=== PATIENT | male | born 1960 | race Caucasian/White ===

== ENCOUNTER → 2017-09-09 08:38 | Outpatient (CLI) | payer BC, SELFPAY ==
--- NOTE | 2017-09-09 09:02 | RAD_ITS ---
STUDY: X-RAY CHEST REASON FOR EXAM: Male, 57 years old. Long-term drug therapy. No chest complaints. TECHNIQUE: PA and lateral views of the chest. COMPARISON: None. FINDINGS: The lungs are clear and expanded. Scattered calcified granulomas. There is no demonstrated pleural abnormality. Normal size heart. Normal mediastinum and smith. Normal visualized pulmonary arteries. Normal visualized aortic arch and descending thoracic aorta. There are diffuse degenerative changes of the visualized thoracic spine. Normal visualized ribs, clavicles, and shoulders. There is no demonstrated abnormality of the visualized soft tissue structures of the upper abdomen. RAD/Chest PA and Lateral IMPRESSION: No acute abnormality is seen. Electronically Signed: Alejo Landeros MD at 10:45 EST Tel [phone], Service support ,
[2017-09-09 10:26] LABS: Color, Urine Yellow (Yellow); Glucose, Dipstick Normal (Normal); Ketone-Dipstick Negative (Negative); Leukocyte Esterase-Dipstick Negative /ul (Negative); Nitrite-Dipstick Negative (Negative); Occult Blood-Urine 25 /ul (Negative); Protein-Dipstick Negative (Negative); Specific Gravity, Urine 1.015 (1.002-1.030); Urine Bilirubin Dipstick Negative (Negative); Urine Clarity Sl. Cloudy (Clear); Urine Urobilinogen Normal (Normal)
[2017-09-09 11:07] LABS: ALB/GLOB Ratio 1.1 RATIO (0.9-2.4); AST(SGOT) 24 U/L (15-37); Alanine Aminotransfer ALT/SGPT 62 U/L (16-61); Albumin, Serum 3.9 g/dL (3.2-5.0); Alkaline Phosphatase 76 U/L (45-117); Anion Gap 9 (5-15); BUN 18 mg/dL (7-18); BUN/Creat Ratio 22.3 RATIO (10-20); CRP < 2.90 mg/L (0.0-3.0); Calcium,Total 8.9 mg/dL (8.5-10.1); Chloride 103 mmol/L (98-107); Creatinine, Serum 0.81 mg/dL (0.70-1.30); EST Glomerular Filtration Rate 105 mL/min (>60); Est Glom Filt Rate - Afr Amer 127 mL/min (>60); Globulin 3.4 g/dL (2.2-4.2); Glucose 83 mg/dL (74-106); Potassium 3.2 mmol/L (3.5-5.1); Protein, Total 7.3 g/dL (6.4-8.2); Sodium Level 137 mmol/L (136-145)
[2017-09-09 11:09] LABS: Absolute Lymphocyte Count 2.58 X10^3/ul (0.83-4.51); Absolute Neutrophil Count 9.4 X10^3/uL (2.0-7.7); Basophil# 0.04 X10^3/uL; Basophil% 0.3 % (0-1); Eosinophil# 0.05 X10^3/uL; Eosinophils% 0.4 % (0-5); Hematocrit 40.8 % (40-54); Hemoglobin 13.9 g/dl (13.0-16.5); Lymphocyte # 2.58 X10^3/ul (4.0); Lymphocyte % 19.4 % (19-41); Mean Corp Hgb Conc 34.1 g/gl (32-36); Mean Corpuscular Hgb 32.9 pg (27.0-32.0); Mean Corpuscular Volume 96.7 fL (80-94); Mean Platelet Vol. 9.5 fl (6.2-12.0); Monocyte# 0.93 X10^3/uL; Neutrophil # 9.44 X10^3/uL (2.7-7.7); Neutrophil % 70.7 % (47-70); Platelet Count 333 K/mm3 (150-450); RBC Distribution Width SD 54.4 fl (35.1-43.9); Red Blood Count 4.22 M/mm3 (4.6-6.2); White Blood Count 13.3 K/mm3 (4.4-11.0)
[2017-09-09 11:10] LABS: POSITIVE COUNT YES; POSITIVE DIFFERENTIAL NO; POSITIVE MORPHOLOGY YES
[2017-09-09 11:12] LABS: Erythrocyte Sedimentation Rate 10 mm/hr (0-20)
[2017-09-10 10:06] LABS: Pathologist Review Reviewed
[2017-09-12 03:07] LABS: HEPATITIS B SURFACE AG Negative (Negative); QNTFERON TB Ag Minus Nil Value < 0 IU/mL (.); QNTFERON TB Ag Value 0.02 IU/mL (.); QNTFERON TB Mitogen Value > 10.00 IU/mL (.); QNTFERON TB Nil Value 0.03 IU/mL (.)
[2017-09-12 09:53] LABS: Hep B Surface Antibodies Non Reactive (.); Hep C Antibodies <0.1 s/co ratio (0.0-0.9); Hepatitis B Core Ab Total Negative (Negative); QNTIFERON TB Gold Negative (Negative)
== END ==
PROVIDERS: Family Provider Family Medicine; PCP Family Medicine; Visit Provider Internal Medicine Rheumatology
DX: M31.30 Wegener's granulomatosis without renal involvement (principal); H20.021 Recurrent acute iridocyclitis, right eye; H15.011 Anterior scleritis, right eye; M21.40 Flat foot [pes planus] (acquired), unspecified foot; Z79.899 Other long term (current) drug therapy
CPT/HCPCS: 36415; 71046; 80053; 81002; 85025; 85652; 86140; 86480; 86704; 86706; 86803; 87340

== ENCOUNTER → 2017-09-26 08:24 | Outpatient (CLI) | payer BC, SELFPAY ==
--- NOTE | 2017-09-26 08:30 | HPBD_ITS ---
STUDY: DUAL ENERGY X-RAY ABSORPTIOMETRY / DXA REASON FOR EXAM: Male, 57 years old. History of prednisone use. Loss of height. TECHNIQUE: Bone Mineral Density (BMD) measurements of lumbar spine and bilateral hips were obtained. COMPARISON: None. FINDINGS: Lumbar Spine (L1-L4): g/cm2 (1.233) / T-score (0.1) / Z-score (0.4) Findings are suggestive of normal bone density with a low fracture risk. Left Femur Total: g/cm2 (0.920) / T-score (-1.3) / Z-score (-0.8) Left Femoral Neck: g/cm2 (0.860) / T-score (-1.6) / Z-score (-0.8) Right Femur Total: g/cm2 (0.923) / T-score (-1.2) / Z-score (-0.8) Right Femoral Neck: g/cm2 (0.854) / T-score (-1.7) / Z-score (-0.8) HPBD/Dexa Bone Density Study (HP) IMPRESSION: The patient is considered osteopenic at the level of the femoral neck as outlined below according to World Rory Organization (WHO) criteria with a moderate fracture risk. Reference Information: The T-score is the number of standard deviations above or below the standard which is normal for young adults at their peak bone mineral density. The World Health Organization (WHO) interprets the T-scores as follows: Above -1 Normal bone density Between -1 and -2.5 Osteopenia Equal to / or below -2.5 Osteoporosis As a practical clinical guideline, osteopenia may be graded as follows: Mild -1 through -1.5 Moderate -1.6 through -2.0 Severe -2.1 through -2.4 The Z-score is the number of standard deviations above or below age-matched controls. A Z-score of less than -1.5 would be considered abnormal. References: 1. NIH Osteoporosis and Related Bone Diseases http://www.osteo.org 2. International Society for Clinical Densitometry http://www.iscd.org 3. National Osteoporosis Foundation http://www.nof.org Electronically Signed: Alejo Landeros MD at 8:28 EST Tel [phone], Service support ,
== END ==
PROVIDERS: Family Provider Family Medicine; PCP Family Medicine; Visit Provider Internal Medicine Rheumatology
DX: M31.30 Wegener's granulomatosis without renal involvement (principal); H20.021 Recurrent acute iridocyclitis, right eye; H15.011 Anterior scleritis, right eye; M21.40 Flat foot [pes planus] (acquired), unspecified foot; Z79.899 Other long term (current) drug therapy
CPT/HCPCS: 77080

== ENCOUNTER → 2017-11-06 07:53 | Outpatient (CLI) | payer BC, SELFPAY ==
[2017-11-06 10:22] LABS: Absolute Lymphocyte Count 1.71 X10^3/ul (0.83-4.51); Absolute Neutrophil Count 6.5 X10^3/uL (2.0-7.7); Basophil# 0.01 X10^3/uL; Basophil% 0.1 % (0-1); Eosinophil# 0.05 X10^3/uL; Eosinophils% 0.5 % (0-5); Hemoglobin 13.6 g/dl (13.0-16.5); Lymphocyte # 1.71 X10^3/ul (4.0); Lymphocyte % 18.5 % (19-41); Mean Corp Hgb Conc 32.4 g/gl (32-36); Mean Corpuscular Hgb 32.8 pg (27.0-32.0); Mean Corpuscular Volume 101.2 fL (80-94); Mean Platelet Vol. 9.1 fl (6.2-12.0); Monocyte# 0.83 X10^3/uL; Neutrophil # 6.52 X10^3/uL (2.7-7.7); Neutrophil % 70.5 % (47-70); Platelet Count 265 K/mm3 (150-450); RBC Distribution Width CV 15.2 % (11.6-14.6); RBC Distribution Width SD 55.3 fl (35.1-43.9); Red Blood Count 4.15 M/mm3 (4.6-6.2); White Blood Count 9.3 K/mm3 (4.4-11.0)
[2017-11-06 10:24] LABS: POSITIVE COUNT NO; POSITIVE DIFFERENTIAL NO; POSITIVE MORPHOLOGY NO
[2017-11-06 10:34] LABS: Erythrocyte Sedimentation Rate 3 mm/hr (0-20)
[2017-11-06 10:44] LABS: ALB/GLOB Ratio 1.2 RATIO (0.9-2.4); AST(SGOT) 25 U/L (15-37); Alanine Aminotransfer ALT/SGPT 48 U/L (16-61); Albumin, Serum 3.7 g/dL (3.2-5.0); Alkaline Phosphatase 73 U/L (45-117); Anion Gap 9 (5-15); BUN 16 mg/dL (7-18); BUN/Creat Ratio 21.7 RATIO (10-20); CRP < 2.90 mg/L (0.0-3.0); Calcium,Total 8.7 mg/dL (8.5-10.1); Chloride 103 mmol/L (98-107); Creatinine, Serum 0.74 mg/dL (0.70-1.30); EST Glomerular Filtration Rate 116 mL/min (>60); Est Glom Filt Rate - Afr Amer 141 mL/min (>60); Globulin 3.1 g/dL (2.2-4.2); Glucose 85 mg/dL (74-106); Potassium 3.8 mmol/L (3.5-5.1); Protein, Total 6.8 g/dL (6.4-8.2); Sodium Level 139 mmol/L (136-145)
== END ==
PROVIDERS: Family Provider Family Medicine; PCP Family Medicine; Visit Provider Internal Medicine Rheumatology
DX: M31.30 Wegener's granulomatosis without renal involvement (principal); H20.021 Recurrent acute iridocyclitis, right eye; H15.011 Anterior scleritis, right eye; M21.40 Flat foot [pes planus] (acquired), unspecified foot; Z79.899 Other long term (current) drug therapy
CPT/HCPCS: 36415; 80053; 85025; 85652; 86140

== ENCOUNTER → 2017-11-25 07:38 | Outpatient (CLI) | payer BC, SELFPAY ==
[2017-11-25] VITALS (9 sets, daily range): BP systolic 142–190; BP diastolic 95–112; PULSE 81–756; RESP 14–18; TEMP 36.6–37; O2SAT 98–100; BMI 32.0
[2017-11-25] MEDS: MethylPREDNISolone 125 MG/2 ML Vial 100 MG IV (08:06)
== END ==
PROVIDERS: Family Provider Family Medicine; PCP Family Medicine; Visit Provider Internal Medicine Rheumatology
DX: M31.30 Wegener's granulomatosis without renal involvement (principal); H20.021 Recurrent acute iridocyclitis, right eye
CPT/HCPCS: 96374; J7040; J9310; A4216

== ENCOUNTER → 2017-12-09 07:57 | Outpatient (CLI) | payer BC, SELFPAY ==
[2017-12-09] MEDS: MethylPREDNISolone 125 MG/2 ML Vial 100 MG IV (08:12)
[2017-12-09 08:26] VITALS: BP 164/109; PULSE 92; RESP 18; TEMP 36.9; O2SAT 100; BMI 31.8
[2017-12-09 09:30] VITALS: BP 164/100; PULSE 82; RESP 16; TEMP 36.9; O2SAT 97
[2017-12-09 10:04] VITALS: BP 150/99; PULSE 84; RESP 16; TEMP 36.9; O2SAT 99
[2017-12-09 10:38] VITALS: BP 144/85; PULSE 83; RESP 16; TEMP 36.6
[2017-12-09 11:09] VITALS: BP 161/95; PULSE 84; RESP 16; TEMP 36.6; O2SAT 98
[2017-12-09 12:09] VITALS: BP 149/101; PULSE 79; RESP 16; TEMP 36.8; O2SAT 98
== END ==
PROVIDERS: Family Provider Family Medicine; PCP Family Medicine; Visit Provider Internal Medicine Rheumatology
DX: Z53.9 Procedure and treatment not carried out, unspecified reason (principal)
CPT/HCPCS: J7040; J7050; J9310

== ENCOUNTER → 2018-01-06 07:46 | Outpatient (CLI) | payer BC, SELFPAY ==
--- NOTE | 2018-01-06 07:46 | DT_ITS ---
This patient was seen during an EMR downtime December 30, 2017 - January 06, 2018. This patient may have a combination of paper and electronic documentation or all paper documentation. All documentation is viewable within the e-chart portion of [facility] for each patient visit.
[2018-01-06 10:41] LABS: Absolute Neutrophil Count 6.3 X10^3/uL (2.0-7.7); Basophil# 0.03 X10^3/uL; Basophil% 0.3 % (0-1); Eosinophil# 0.09 X10^3/uL; Hematocrit 41.3 % (40-54); Hemoglobin 13.4 g/dl (13.0-16.5); Lymphocyte % 20.5 % (19-41); Mean Corp Hgb Conc 32.4 g/gl (32-36); Mean Corpuscular Hgb 32.1 pg (27.0-32.0); Mean Corpuscular Volume 98.8 fL (80-94); Mean Platelet Vol. 9.3 fl (6.2-12.0); Monocyte% 8.6 % (0-10); Platelet Count 263 K/mm3 (150-450); RBC Distribution Width CV 15.8 % (11.6-14.6); RBC Distribution Width SD 56.6 fl (35.1-43.9); Red Blood Count 4.18 M/mm3 (4.6-6.2); White Blood Count 9.3 K/mm3 (4.4-11.0)
[2018-01-06 10:42] LABS: Erythrocyte Sedimentation Rate 4 mm/hr (0-20); POSITIVE COUNT NO; POSITIVE DIFFERENTIAL NO; POSITIVE MORPHOLOGY NO
[2018-01-06 10:54] LABS: ALB/GLOB Ratio 1.2 RATIO (0.9-2.4); AST(SGOT) 21 U/L (15-37); Alanine Aminotransfer ALT/SGPT 52 U/L (16-61); Albumin, Serum 3.7 g/dL (3.2-5.0); Alkaline Phosphatase 56 U/L (45-117); Anion Gap 10 (5-15); BUN 18 mg/dL (7-18); BUN/Creat Ratio 24.9 RATIO (10-20); CRP < 2.90 mg/L (0.0-3.0); Calcium,Total 8.7 mg/dL (8.5-10.1); Chloride 103 mmol/L (98-107); Creatinine, Serum 0.72 mg/dL (0.70-1.30); EST Glomerular Filtration Rate 119 mL/min (>60); Est Glom Filt Rate - Afr Amer 144 mL/min (>60); Globulin 3.1 g/dL (2.2-4.2); Glucose 72 mg/dL (74-106); Potassium 3.8 mmol/L (3.5-5.1); Protein, Total 6.8 g/dL (6.4-8.2); Sodium Level 139 mmol/L (136-145)
== END ==
PROVIDERS: Family Provider Family Medicine; PCP Family Medicine; Visit Provider Internal Medicine Rheumatology
DX: M31.30 Wegener's granulomatosis without renal involvement (principal); H20.021 Recurrent acute iridocyclitis, right eye; H15.011 Anterior scleritis, right eye; Z79.899 Other long term (current) drug therapy; M21.40 Flat foot [pes planus] (acquired), unspecified foot
CPT/HCPCS: 36415; 80053; 85025; 85652; 86140

== ENCOUNTER → 2018-03-14 07:39 | Outpatient (CLI) | payer BC, SELFPAY ==
[2018-03-14 10:41] LABS: Erythrocyte Sedimentation Rate 8 mm/hr (0-20)
[2018-03-14 10:47] LABS: Absolute Lymphocyte Count 1.17 X10^3/ul (0.83-4.51); Absolute Neutrophil Count 3.9 X10^3/uL (2.0-7.7); Basophil# 0.03 X10^3/uL; Basophil% 0.5 % (0-1); Eosinophil# 0.07 X10^3/uL; Eosinophils% 1.1 % (0-5); Hematocrit 39.6 % (40-54); Hemoglobin 12.9 g/dl (13.0-16.5); Lymphocyte # 1.17 X10^3/ul (4.0); Lymphocyte % 19.1 % (19-41); Mean Corp Hgb Conc 32.6 g/gl (32-36); Mean Corpuscular Hgb 33.5 pg (27.0-32.0); Mean Corpuscular Volume 102.9 fL (80-94); Mean Platelet Vol. 9.3 fl (6.2-12.0); Monocyte# 0.97 X10^3/uL; Monocyte% 15.8 % (0-10); Neutrophil # 3.87 X10^3/uL (2.7-7.7); Neutrophil % 63.3 % (47-70); Platelet Count 310 K/mm3 (150-450); RBC Distribution Width CV 15.7 % (11.6-14.6); RBC Distribution Width SD 58.6 fl (35.1-43.9); Red Blood Count 3.85 M/mm3 (4.6-6.2); White Blood Count 6.1 K/mm3 (4.4-11.0)
[2018-03-14 10:49] LABS: ALB/GLOB Ratio 1.1 RATIO (0.9-2.4); AST(SGOT) 26 U/L (15-37); Alanine Aminotransfer ALT/SGPT 43 U/L (16-61); Albumin, Serum 3.5 g/dL (3.2-5.0); Alkaline Phosphatase 71 U/L (45-117); Anion Gap 8 (5-15); BUN 11 mg/dL (7-18); BUN/Creat Ratio 13.6 RATIO (10-20); Calcium,Total 8.5 mg/dL (8.5-10.1); Chloride 104 mmol/L (98-107); Creatinine, Serum 0.81 mg/dL (0.70-1.30); EST Glomerular Filtration Rate 105 mL/min (>60); Est Glom Filt Rate - Afr Amer 127 mL/min (>60); Globulin 3.3 g/dL (2.2-4.2); Glucose 91 mg/dL (74-106); POSITIVE COUNT NO; POSITIVE DIFFERENTIAL NO; POSITIVE MORPHOLOGY NO; Potassium 3.7 mmol/L (3.5-5.1); Protein, Total 6.8 g/dL (6.4-8.2); Sodium Level 139 mmol/L (136-145)
== END ==
PROVIDERS: Family Provider Family Medicine; PCP Family Medicine; Visit Provider Internal Medicine Rheumatology
DX: M31.30 Wegener's granulomatosis without renal involvement (principal); H20.021 Recurrent acute iridocyclitis, right eye; H15.011 Anterior scleritis, right eye; M21.40 Flat foot [pes planus] (acquired), unspecified foot; Z79.899 Other long term (current) drug therapy
CPT/HCPCS: 36415; 80053; 85025; 85652; 86140

== ENCOUNTER → 2018-06-06 07:52 | Outpatient (CLI) | payer BC, SELFPAY ==
[2018-06-06 10:21] LABS: Erythrocyte Sedimentation Rate 6 mm/hr (0-20)
[2018-06-06 10:26] LABS: Absolute Lymphocyte Count 1.22 X10^3/ul (0.83-4.51); Absolute Neutrophil Count 5.4 X10^3/uL (2.0-7.7); Basophil# 0.03 X10^3/uL; Basophil% 0.4 % (0-1); Eosinophil# 0.12 X10^3/uL; Eosinophils% 1.6 % (0-5); Hematocrit 39.3 % (40-54); Hemoglobin 13.3 g/dl (13.0-16.5); Lymphocyte # 1.22 X10^3/ul (4.0); Lymphocyte % 16.2 % (19-41); Mean Corp Hgb Conc 33.8 g/gl (32-36); Mean Corpuscular Hgb 32.4 pg (27.0-32.0); Mean Corpuscular Volume 95.9 fL (80-94); Mean Platelet Vol. 9.7 fl (6.2-12.0); Monocyte# 0.73 X10^3/uL; Monocyte% 9.7 % (0-10); Neutrophil # 5.42 X10^3/uL (2.7-7.7); Platelet Count 337 K/mm3 (150-450); RBC Distribution Width CV 15.5 % (11.6-14.6); RBC Distribution Width SD 54.3 fl (35.1-43.9); White Blood Count 7.5 K/mm3 (4.4-11.0)
[2018-06-06 10:31] LABS: POSITIVE COUNT NO; POSITIVE DIFFERENTIAL NO; POSITIVE MORPHOLOGY NO
[2018-06-06 10:33] LABS: ALB/GLOB Ratio 1.1 RATIO (0.9-2.4); AST(SGOT) 15 U/L (15-37); Alanine Aminotransfer ALT/SGPT 34 U/L (16-61); Albumin, Serum 3.6 g/dL (3.2-5.0); Alkaline Phosphatase 94 U/L (45-117); Anion Gap 7 (5-15); BUN 16 mg/dL (7-18); BUN/Creat Ratio 18.3 RATIO (10-20); CRP < 2.90 mg/L (0.0-3.0); Chloride 106 mmol/L (98-107); Creatinine, Serum 0.87 mg/dL (0.70-1.30); EST Glomerular Filtration Rate 96 mL/min (>60); Est Glom Filt Rate - Afr Amer 116 mL/min (>60); Globulin 3.3 g/dL (2.2-4.2); Glucose 72 mg/dL (74-106); Potassium 4.3 mmol/L (3.5-5.1); Protein, Total 6.9 g/dL (6.4-8.2); Sodium Level 140 mmol/L (136-145)
== END ==
PROVIDERS: Family Provider Family Medicine; PCP Family Medicine; Referring Provider Internal Medicine Rheumatology; Visit Provider Internal Medicine Rheumatology
DX: M31.30 Wegener's granulomatosis without renal involvement (principal); H20.021 Recurrent acute iridocyclitis, right eye; H15.011 Anterior scleritis, right eye; Z79.899 Other long term (current) drug therapy; M21.40 Flat foot [pes planus] (acquired), unspecified foot
CPT/HCPCS: 80053; 85025; 85652; 86140

== ENCOUNTER → 2018-06-30 08:52 | Outpatient (CLI) | payer BC, SELFPAY ==
[2018-06-30] MEDS: MethylPREDNISolone 125 MG/2 ML Vial 100 MG IV (09:09)
[2018-06-30 09:13] VITALS: BP 176/96; PULSE 82; RESP 18; TEMP 36.4; O2SAT 99; BMI 34.6
[2018-06-30 10:37] VITALS: BP 160/99; PULSE 81; RESP 18
[2018-06-30 11:18] VITALS: BP 164/83; PULSE 73; RESP 16; TEMP 36.5
[2018-06-30 11:44] VITALS: BP 159/87; RESP 18
[2018-06-30 12:46] VITALS: BP 147/92; PULSE 87; RESP 18; TEMP 36.7; O2SAT 99
--- OUTSIDE RECORDS SUMMARY | 2018-08-23 10:58 | XMS RPT_ITS ---
:1960 Author Organization [place] Support Name Relationship Address Phone FEDERICO HITCHCOCK Unavailable [address] + [place] [phone] MATFO Unavailable [address] + [place] [phone] FEDERICO HITCHCOCK Unavailable [address] + [place] [phone] MATFO Unavailable [address] + [place] [phone] FEDERICO HITCHCOCK Unavailable [address] + [place] [phone] MATFO Unavailable [address] + [place] [phone] FEDERICO HITCHCOCK Unavailable [address] + [place] [phone] MATFO Unavailable [address] + [place] [phone] FEDERICO HITCHCOCK Unavailable [address] + [place] [phone] MATFO Unavailable [address] + [place] [phone] LEVAR HITCHCOCKNY Unavailable [address] + [place] [phone] MATFO Unavailable [address] + [place] [phone] FEDERICO HITCHCOCK Unavailable [address] + [place] [phone] MATFO Unavailable [address] + [place] [phone] FEDERICO HITCHCOCK Unavailable [address] + [place] [address] POLLOTTA WIGGINS Unavailable [address] + [place] [address] FEDERICO HITCHCOCK Unavailable [address] + [place] [address] POLLOTTA WIGGINS Unavailable [address] + [place] [address] LEVAR HITCHCOCKNY Unavailable [address] + [place] [address] POLLOTTA WIGGINS Unavailable [address] + [place] [address] CORETTA FEDERICO Unavailable [address] + [place] [address] POLLOTTA WIGGINS Unavailable [address] + [place] [address] Care Team Providers Name Role Phone DUANE RENEE Attending Unavailable TAMMIE ANGUIANO, DUANE Referring Unavailable TAMMIE ANGUIANO, DUANE Attending Unavailable Vellanki, Meryl Attending Unavailable Vellanki, Meryl Referring Unavailable Jolliff, Teri Primary Care Unavailable Vellanki, Meryl Attending Unavailable Vellanki, Meryl Referring Unavailable Jolliff, Teri Primary Care Unavailable Vellanki, Meryl Attending Unavailable Vellanki, Meryl Referring Unavailable Jolliff, Teri Primary Care Unavailable Vellanki, Meryl Attending Unavailable Vellanki, Meryl Referring Unavailable Jolliff, Teri Primary Care Unavailable Vellanki, Meryl Attending Unavailable Vellanki, Meryl Referring Unavailable Jolliff, Teri Primary Care Unavailable Vellanki, Meryl Attending Unavailable Vellanki, Meryl Referring Unavailable Jolliff, Teri Primary Care Unavailable Vellanki, Meryl Attending Unavailable Vellanki, Meryl Referring Unavailable Jolliff, Teri Primary Care Unavailable Vellanki, Meryl Attending Unavailable Vellanki, Meryl Referring Unavailable Jolliff, Teri Primary Care Unavailable Vellanki, Meryl Attending Unavailable Vellanki, Meryl Referring Unavailable Jolliff, Teri Primary Care Unavailable Vellanki, Meryl Attending Unavailable Vellanki, Meryl Referring Unavailable Jolliff, Teri Primary Care Unavailable Vellanki, Meryl Attending Unavailable Vellanki, Meryl Referring Unavailable Jolliff, Teri Primary Care Unavailable PROBLEMS PROBLEMS DATE TYPE CONDITION / CODE ATTENDING STATUS SOURCE 06/06/2018 Unknown 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 Hospital involvement / Repository M31.30(ICD-10) 06/06/2018 Unknown 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, Community right eye / Hospital H20.021(ICD-10) Repository 06/06/2018 Unknown 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, right eye Community / H15.011(ICD-10) Hospital Repository 06/06/2018 Unknown Z79.899 - Other long Meryl Gross Active [facility] term (current) drug Community therapy / Hospital Z79.899(ICD-10) Repository 06/06/2018 Unknown M21.40 - Flat foot Meryl Gross Active [facility] [pes planus] Community (acquired), Hospital unspecified foot / Repository M21.40(ICD-10) 08/30/2017 Active Ai's NA Active [facility] granulomatosis [facility] without renal [place] involvement / Repository M31.30(ICD-10) 08/30/2017 Active Other chronic NA Active [facility] sinusitis / Clinic Main J32.8(ICD-10) [facility] Repository 08/30/2017 Active skilled nursing (current) NA Active [facility] use of systemic Clinic Main steroids / [place] Z79.52(ICD-10) Repository 08/30/2017 Active Unspecified NA Active [facility] scleritis, right eye Clinic Main / H15.001(ICD-10) [facility] Repository 08/30/2017 Active Other residential NA Active [facility] (current) drug Clinic Main therapy / [place] Z79.899(ICD-10) Repository PROCEDURES PROCEDURES No Procedure Records FoundRESULTS RESULTS ERYTHROCYTE SED RATE Collected: 06/06/2018 Status: F Source: [employer] 8:00 AM [facility] REPOSITORY TYPE CODE TESTS RESULT OUT OF RANGE REFERENCE UNITS LAB L102.0000 0-20 mm/hr Normal SED RATE 6 Performed By: #### L101.9900, L100.0100 #### [facility] [address] [place], [address] CBC W/DIFF, AUTOMATED Collected: 06/06/2018 Status: F Source: [employer] 8:00 AM [facility] REPOSITORY TYPE CODE TESTS RESULT OUT OF RANGE REFERENCE UNITS LAB L100.1000 4.4-11.0 K/mm3 Normal WBC 7.5 LAB L100.1200 4.6-6.2 M/mm3 Low RBC 4.10 LAB L100.1300 13.0-16.5 g/dl Normal HGB 13.3 LAB L100.1400 40-54 % Low HCT 39.3 LAB L100.1500 80-94 fL High MCV 95.9 LAB L100.1600 27.0-32.0 pg High MCH 32.4 LAB L100.1700 32-36 g/gl Normal MCHC 33.8 LAB L100.1810 11.6-14.6 % High RDW CV 15.5 LAB L100.1820 35.1-43.9 fl High RDW SD 54.3 LAB L100.1900 150-450 K/mm3 Normal PLT 337 LAB L100.2000 6.2-12.0 fl Normal MPV 9.7 LAB L100.2100 47-70 % High NEUT% 72.0 LAB L100.2200 19-41 % Low LY% 16.2 LAB L100.2300 0-10 % Normal MONO% 9.7 LAB L100.2400 0-5 % Normal EO% 1.6 LAB L100.2500 0-1 % Normal BASO% 0.4 LAB L100.2550 0.0-0.9 % Normal IM GRAN % 0.100 Result Comment: IG% - Immature Granulocytes (promyelocytes, myelocytes and metamyelocytes) > 1% indicates that a LEFT SHIFT is Present. LAB L100.2620 2.0-7.7 X10 3/uL Normal Absolute Neut 5.4 LAB L100.2720 0.83-4.51 X10 3/ul Normal Absolute Lymph 1.22 Performed By: #### L101.9900, L100.0100 #### [facility] [address] [place], [place], [address] COMPREHENSIVE METABOLIC Collected: 06/06/2018 Status: F [facility] REPOSITORY TYPE CODE TESTS RESULT OUT OF RANGE REFERENCE UNITS LAB L501.0100 74-106 mg/dL Low GLU 72 Result Comment: Please note revised GLUCOSE reference range effective 2017. LAB L501.1000 7-18 mg/dL Normal BUN 16 LAB L501.1100 0.70-1.30 mg/dL Normal CREAT,SERUM 0.87 Result Comment: The validity of the calculated GFR AND GFRAA in patients over 70 years has not been determined. Clinical correlation is essential. LAB L501.1110 >60 mL/min Normal EST GFR 96 Result Comment: Non- GFR Calc LAB L501.1115 >60 mL/min Normal EST GFR - AA 116 Result Comment: GFR Calc LAB L501.1300 10-20 RATIO Normal BUN/CRE 18.3 LAB L501.1500 6.4-8.2 g/dL T Normal PROT 6.9 LAB L501.1800 3.2-5.0 g/dL Normal ALB 3.6 LAB L501.1950 2.2-4.2 g/dL Normal GLOB 3.3 LAB L501.2000 0.9-2.4 RATIO Normal A/G 1.1 LAB L501.2200 8.5-10.1 mg/dL CA Normal 9.0 LAB L501.4100 15-37 U/L Normal AST 15 LAB L501.4305 45-117 U/L Normal ALK P 94 LAB L501.4405 16-61 U/L Normal ALT 34 LAB L501.4600 0.20-1.00 mg/dL T Normal BILI 0.40 LAB L501.5300 136-145 mmol/L NA Normal 140 LAB L501.5600 3.5-5.1 mmol/L K Normal 4.3 LAB L501.5900 98-107 mmol/L CL Normal 106 LAB L501.6100 21.0-32.0 mmol/L Normal CO2 27.0 LAB L501.6200 5-15 Normal GAP 7 Performed By: #### L500.4050, L501.6710 #### [facility] [address] [place], [place], [address] CRP Collected: 06/06/2018 Status: F Source: [employer] 8:00 AM [facility] REPOSITORY TYPE CODE TESTS RESULT OUT OF RANGE REFERENCE UNITS LAB L501.6710 0.0-3.0 mg/L Normal < 2.90 C-REACTIVE PROT Result Comment: C-Reactive Protein (CRP) provides useful information for the diagnosis, therapy and monitoring of inflammatory processes and associated diseases. For the evaluation of Relative Risk for Cardiovascular Disease, a High Sensitivity CRP (HSCRP) should be ordered. Performed By: #### L500.4050, L501.6710 #### [facility] [address] [place], [address] ERYTHROCYTE SED RATE Collected: 03/14/2018 Status: F Source: [employer] 7:43 AM [facility] REPOSITORY TYPE CODE TESTS RESULT OUT OF RANGE REFERENCE UNITS LAB L102.0000 0-20 mm/hr Normal SED RATE 8 Performed By: #### L101.9900, L100.0100 #### [facility] [address] [place], [address] CBC W/DIFF, AUTOMATED Collected: 03/14/2018 Status: F Source: [employer] 7:43 AM [facility] REPOSITORY TYPE CODE TESTS RESULT OUT OF RANGE REFERENCE UNITS LAB L100.1000 4.4-11.0 K/mm3 Normal WBC 6.1 LAB L100.1200 4.6-6.2 M/mm3 Low RBC 3.85 LAB L100.1300 13.0-16.5 g/dl Low HGB 12.9 LAB L100.1400 40-54 % Low HCT 39.6 LAB L100.1500 80-94 fL High MCV 102.9 LAB L100.1600 27.0-32.0 pg High MCH 33.5 LAB L100.1700 32-36 g/gl Normal MCHC 32.6 LAB L100.1810 11.6-14.6 % High RDW CV 15.7 LAB L100.1820 35.1-43.9 fl High RDW SD 58.6 LAB L100.1900 150-450 K/mm3 Normal PLT 310 LAB L100.2000 6.2-12.0 fl Normal MPV 9.3 LAB L100.2100 47-70 % Normal NEUT% 63.3 LAB L100.2200 19-41 % Normal LY% 19.1 LAB L100.2300 0-10 % High MONO% 15.8 LAB L100.2400 0-5 % Normal EO% 1.1 LAB L100.2500 0-1 % Normal BASO% 0.5 LAB L100.2550 0.0-0.9 % Normal IM GRAN % 0.200 Result Comment: IG% - Immature Granulocytes (promyelocytes, myelocytes and metamyelocytes) > 1% indicates that a LEFT SHIFT is Present. LAB L100.2620 2.0-7.7 X10 3/uL Normal Absolute Neut 3.9 LAB L100.2720 0.83-4.51 X10 3/ul Normal Absolute Lymph 1.17 Performed By: #### L101.9900, L100.0100 #### [facility] [address] [place], [address] COMPREHENSIVE METABOLIC Collected: 03/14/2018 Status: F Source: [facility] 7:43 AM [facility] REPOSITORY TYPE CODE TESTS RESULT OUT OF RANGE REFERENCE UNITS LAB L501.0100 74-106 mg/dL Normal GLU 91 Result Comment: Please note revised GLUCOSE reference range effective 2017. LAB L501.1000 7-18 mg/dL Normal BUN 11 LAB L501.1100 0.70-1.30 mg/dL Normal CREAT,SERUM 0.81 Result Comment: The validity of the calculated GFR AND GFRAA in patients over 70 years has not been determined. Clinical correlation is essential. LAB L501.1110 >60 mL/min Normal EST GFR 105 Result Comment: Non- GFR Calc LAB L501.1115 >60 mL/min Normal EST GFR - AA 127 Result Comment: GFR Calc LAB L501.1300 10-20 RATIO Normal BUN/CRE 13.6 LAB L501.1500 6.4-8.2 g/dL T Normal PROT 6.8 LAB L501.1800 3.2-5.0 g/dL Normal ALB 3.5 LAB L501.1950 2.2-4.2 g/dL Normal GLOB 3.3 LAB L501.2000 0.9-2.4 RATIO Normal A/G 1.1 LAB L501.2200 8.5-10.1 mg/dL CA Normal 8.5 LAB L501.4100 15-37 U/L Normal AST 26 LAB L501.4305 45-117 U/L Normal ALK P 71 LAB L501.4405 16-61 U/L Normal ALT 43 LAB L501.4600 0.20-1.00 mg/dL T Normal BILI 0.40 LAB L501.5300 136-145 mmol/L NA Normal 139 LAB L501.5600 3.5-5.1 mmol/L K Normal 3.7 LAB L501.5900 98-107 mmol/L CL Normal 104 LAB L501.6100 21.0-32.0 mmol/L Normal CO2 27.0 LAB L501.6200 5-15 Normal GAP 8 Performed By: #### L500.4050, L501.6710 #### [facility] [address] [place], [address] CRP Collected: 03/14/2018 Status: F Source: [employer] 7:43 AM [facility] REPOSITORY TYPE CODE TESTS RESULT OUT OF RANGE REFERENCE UNITS LAB L501.6710 0.0-3.0 mg/L Normal 3.00 C-REACTIVE PROT Result Comment: C-Reactive Protein (CRP) provides useful information for the diagnosis, therapy and monitoring of inflammatory processes and associated diseases. For the evaluation of Relative Risk for Cardiovascular Disease, a High Sensitivity CRP (HSCRP) should be ordered. Performed By: #### L500.4050, L501.6710 #### [facility] [address] [place], [place], [address] PROGRESS Observed: 02/27/2018 Status: COMPLETED Source: [place] 8:17 AM [facility] REPOSITORY HNO ID: [id number] Author: Duane Anguiano Service: (none) Author Type: Physician Type: Progress Notes Filed: 02/27/2018 4:44 PM Note Text: Jaelyn Hitchcock is a 57 year old male here for follow-up of GPA. The patient was referred by Dr. Sommers. 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 Diagnosed with GPA (involving eye, sinus). Started on rituximab + MTX 25 mg q week+ prednisone 20 mg q day. Previously treated with Humira. Scleritis - 02/27/2018 INTERVAL HX: At today's visit Jaelyn Hitchcock states that he has been overall doing well. Started having tingling in his forehead about a week and a half ago. He then developed a rash over his forehead which he describes as small bumps which he initially thought were pimples. He was seen by his PCP on Saturday 02/24 and was told he had shingles. He was seen by the dentist/owner on Saturday as well and was cleared. He has a follow up with dentist/owner on next Saturday. He is on valtrex 1 gram TID for 10 days. He feels that his rash is getting better, it is less sore and less red. He reports that if it wasn't for the shingles he would be doing well. He feels he has allergies. He reports sneezing frequently. He reports rare streaks of blood when he blows his nose, but denies crusting. He reports post-nasal drainage. He feels his vision is doing well. When he saw the dentist/owner he reports being told that his GPA was quiescent. 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 He reports that he does wear a mask most of the time. He does notice a difference in his symptoms when he is not at work, less congestion and sneezing. He flushes his sinuses 2-3x per week which seems to help him. He reports some weight gain with the prednisone. He denies shortness of fevers, chills, night sweats, breath, chest pain, hemoptysis, cough w/ sputum production, denies stridor/wheezing, no rashes other than the shingles. He is on RTX and received his last dose in 12/13. He is scheduled for his next one sometime in 06/15. He gets his infusions through [facility]. He remains on the 20 mg q day of prednisone. He is also on MTX 25 mg q week. He reports compliance with his folic acid. He reports that he frequently doesn't sleep well. Does not believe he snores at night. He denies a history of apneic events. He denies prior sleep study. BP at home 138/89. SMALL/MEDIUM VESSEL VASCULITIS ROS: GENERAL: negative for, malaise, fatigue, night sweats FEVER: none WEIGHT CHANGE: has gained 15 lbs pounds since starting steroids ENT: negative for, nasal crusting, epistaxis, decreased hearing, sore throat, difficulty swallowing, voice changes. Positive for scant blood streaked nasal drainage EYES: negative for pain, redness, visual blurring, visual loss RESPIRATORY: negative for, cough, sputum production, hemoptysis, wheezing, shortness of breath, pleuritic chest pain CARDIOVASCULAR: negative for, chest pain, palpitations, digital ischemia, Raynaud's GASTROINTESTINAL: negative for, discomfort, BRBPR, black stools, vomiting, diarrhea URINARY: negative for, dysuria, hematuria MUSCULOSKELETAL: negative for joint pain, back pain, myalgias NEUROLOGIC: negative for, numbness, weakness, headache, dizziness SKIN: rash (shingles) OTHER ROS: all others negative REVIEW OF FAMILY AND/OR SOCIAL HISTORY: 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 folic acid 1 mg tablet Take 1 tablet by mouth once daily. predniSONE (DELTASONE) 5 mg tablet 15 mg daily for 1 weeks then cut down by 5 mg every 1 week until off alendronate (FOSAMAX) 70 mg tablet Take 1 tablet by mouth once each week. In the morning with a full glass of water, on an empty stomach. Do not take anything else by mouth or lie down for the next 30 minutes. sulfamethoxazole-trimethoprim (BACTRIM DS,SEPTRA DS) 800-160 mg per tablet TAKE 1 TABLET BY MOUTH ON SATURDAY, SATURDAY AND SATURDAY methotrexate 2.5 mg tablet Take 10 tablets by mouth every . moxifloxacin (VIGAMOX) 0.5 % ophthalmic solution Use 1 Drop in the right eye every 4 hours. brimonidine (ALPHAGAN P) 0.15 % ophthalmic solution Use 1 Drop in the right eye once daily. No current facility-administered medications for this visit. PHYSICAL EXAMINATION Blood pressure 156/93, pulse 87, temperature (!) 35.6 ?C (96.1 ?F), height 168.9 cm (5' 6.5), weight 95.3 kg (210 lb 3.2 oz). GENERAL APPEARANCE: well SKIN: Scabbed papules and some blisters w/ erythematous base over right sided V1 distribution c/w healing zoster rash EYES: PERRLA, no conjunctival erythema, small area of bluish discoloration of the sclera c/w prior history of scleritis w/ ulceration EARS: External ears normal, TM's scarred around the periphery bilaterally (pt reports frequent ear infections as a child). Small amount of cerumen present bilaterally. NOSE/SINUSES: nasal mucosal inflammation, scant greenish/nguyễn mucous OROPHARYNX: no oral lesions present, no oral ulcers. LUNGS: clear HEART: RRR, no gallops, rubs or murmurs ABDOMEN: soft, non-tender, normal BS, no organomegaly or masses MUSCULOSKELETAL: normal NEURO: normal Lab results: WBC Date Value Ref Range Status 08/30/2017 10.22 3.70 - 11.00 k/uL Final Hemoglobin Date Value Ref Range Status 08/30/2017 14.4 13.0 - 17.0 g/dL Final Hematocrit Date Value Ref Range Status 08/30/2017 42.6 39.0 - 51.0 % Final Platelet Count Date Value Ref Range Status 08/30/2017 314 150 - 400 k/uL Final Creatinine Date Value Ref Range Status 08/30/2017 0.77 0.73 - 1.22 mg/dL Final Glucose Date Value Ref Range Status 08/30/2017 96 74 - 99 mg/dL Final Comment: The [place] [employer] (ADA) provides guidance for cutoff values for fasting glucose and random glucose. The ADA defines fasting as no caloric intake for at least 8 hours. Fasting plasma glucose results between 100 to 125 mg/dL indicate increased risk for diabetes (prediabetes). Fasting plasma glucose results greater than or equal to 126 mg/dL meet the criteria for diagnosis of diabetes. In the absence of unequivocal hyperglycemia, results should be confirmed by repeat testing. In a patient with classic symptoms of hyperglycemia or hyperglycemic crisis, random plasma glucose results greater than or equal to 200 mg/dL meet the criteria for diagnosis of diabetes. Reference: Standards of Medical Care in Diabetes 2016, [place] [employer] Association. Diabetes Care. 2016.39(Suppl 1). AST Date Value Ref Range Status 08/30/2017 35 14 - 40 U/L Final ALT Date Value Ref Range Status 08/30/2017 33 10 - 54 U/L Final WSR Date Value Ref Range Status 08/30/2017 8 0 - 15 mm/hr Final CRP Date Value Ref Range Status 08/30/2017 0.3 <0.9 mg/dL Final Alkaline Phosphatase Date Value Ref Range Status 08/30/2017 84 36 - 108 U/L Final Urine: Specific [place], Ur Date Value Ref Range Status 08/30/2017 1.013 1.005 - 1.030 Final Glucose, Urine Date Value Ref Range Status 08/30/2017 Negative Negative mg/dL Final Bilirubin, Urine Date Value Ref Range Status 08/30/2017 Negative Negative Final Ketones, Urine Date Value Ref Range Status 08/30/2017 Trace (A) Negative Final Hemoglobin/Blood,Ur Date Value Ref Range Status 08/30/2017 Negative Negative Final Protein, Urine Date Value Ref Range Status 08/30/2017 Negative Negative mg/dL Final ASSESSMENT: 1. 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 He does seem to have mild sinus involvement, which is manageable per pt Pt reports being told his scleritis was improved when he saw [facility] Saturday[facility]18 Feels the rituximab has been helping and denies side effects Had double dose of rituximab in 12/13, due for repeat infusion in 06/15 Continued on MTX 25 mg q week and prednisone 20 mg q day, interested in tapering prednisone Does report some fatigue with his MTX which improves 2-3 days after the dose Available laboratories were reviewed with the patient. Herpes Zoster: Currently has Zoster of the right V1 dermatome, no eye involvement Currently on a 10 day course of valacyclovir 1g TID x10 days Reports improvement in his rash since starting the medication Has a follow up appointment with ophtho on Saturday03/03/18 Pt denies other recent infections PLAN: Continue MTX 25 mg q week + folic acid Continue Rituximab, okay to give single maintenance dose of only one gram in 06/15, as long as disease remains quiescent Taper prednisone. Pt will go down to 15 mg x1 week, then will decrease his dose by 5 mg per week. 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 Follow-up: September or October 2018 I spent 40 minutes in the visit, with more than 50% of the total face to face time of the visit in the counseling/coordination of care. Lencho Mckeon, Rheumatology Staff I have reviewed the history and physical examination obtained and documented by the fellow and I personally participated in the bui components. I have discussed the case and management of the patient's care with the fellow. The above plan reflects my recommendations Duane Morrissey MD CNOV Observed: 02/27/2018 Status: COMPLETED Source: [place] 8:10 AM [facility] REPOSITORY Office Visit (RHEUMN) JAELYN HITCHCOCK ([id number]) 1960 M Date Time Provider Department 02/27/18 8:10 AM DUANE RENEE During your visit today, we recorded the following information about you: Temperature Pulse Blood pressure Weight 96.1 degrees 87/minute 156/93 95.3 kg Height 1.689 m Duane Morrissey MD 02/27/2018 4:44 PM Signed Jaelyn Hitchcock is a 57 year old male here for follow-up of GPA. The patient was referred by Dr. Sommers. 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 Diagnosed with GPA (involving eye, sinus). Started on rituximab + MTX 25 mg q week+ prednisone 20 mg q day. Previously treated with Humira. Scleritis - 02/27/2018 INTERVAL HX: At today's visit Jaelyn Hitchcock states that he has been overall doing well. Started having tingling in his forehead about a week and a half ago. He then developed a rash over his forehead which he describes as small bumps which he initially thought were pimples. He was seen by his PCP on Saturday 02/24 and was told he had shingles. He was seen by the dentist/owner on Saturday as well and was cleared. He has a follow up with dentist/owner on next Saturday. He is on valtrex 1 gram TID for 10 days. He feels that his rash is getting better, it is less sore and less red. He reports that if it wasn't for the shingles he would be doing well. He feels he has allergies. He reports sneezing frequently. He reports rare streaks of blood when he blows his nose, but denies crusting. He reports post-nasal drainage. He feels his vision is doing well. When he saw the dentist/owner he reports being told that his GPA was quiescent. 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 He reports that he does wear a mask most of the time. He does notice a difference in his symptoms when he is not at work, less congestion and sneezing. He flushes his sinuses 2-3x per week which seems to help him. He reports some weight gain with the prednisone. He denies shortness of fevers, chills, night sweats, breath, chest pain, hemoptysis, cough w/ sputum production, denies stridor/wheezing, no rashes other than the shingles. He is on RTX and received his last dose in 12/13. He is scheduled for his next one sometime in 06/15. He gets his infusions through [facility]. He remains on the 20 mg q day of prednisone. He is also on MTX 25 mg q week. He reports compliance with his folic acid. He reports that he frequently doesn't sleep well. Does not believe he snores at night. He denies a history of apneic events. He denies prior sleep study. BP at home 138/89. SMALL/MEDIUM VESSEL VASCULITIS ROS: GENERAL: negative for, malaise, fatigue, night sweats FEVER: none WEIGHT CHANGE: has gained 15 lbs pounds since starting steroids ENT: negative for, nasal crusting, epistaxis, decreased hearing, sore throat, difficulty swallowing, voice changes. Positive for scant blood streaked nasal drainage EYES: negative for pain, redness, visual blurring, visual loss RESPIRATORY: negative for, cough, sputum production, hemoptysis, wheezing, shortness of breath, pleuritic chest pain CARDIOVASCULAR: negative for, chest pain, palpitations, digital ischemia, Raynaud's GASTROINTESTINAL: negative for, discomfort, BRBPR, black stools, vomiting, diarrhea URINARY: negative for, dysuria, hematuria MUSCULOSKELETAL: negative for joint pain, back pain, myalgias NEUROLOGIC: negative for, numbness, weakness, headache, dizziness SKIN: rash (shingles) OTHER ROS: all others negative REVIEW OF FAMILY AND/OR SOCIAL HISTORY: 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 folic acid 1 mg tablet Take 1 tablet by mouth once daily. predniSONE (DELTASONE) 5 mg tablet 15 mg daily for 1 weeks then cut down by 5 mg every 1 week until off alendronate (FOSAMAX) 70 mg tablet Take 1 tablet by mouth once each week. In the morning with a full glass of water, on an empty stomach. Do not take anything else by mouth or lie down for the next 30 minutes. sulfamethoxazole-trimethoprim (BACTRIM DS,SEPTRA DS) 800-160 mg per tablet TAKE 1 TABLET BY MOUTH ON SATURDAY, SATURDAY AND SATURDAY methotrexate 2.5 mg tablet Take 10 tablets by mouth every . moxifloxacin (VIGAMOX) 0.5 % ophthalmic solution Use 1 Drop in the right eye every 4 hours. brimonidine (ALPHAGAN P) 0.15 % ophthalmic solution Use 1 Drop in the right eye once daily. No current facility-administered medications for this visit. PHYSICAL EXAMINATION Blood pressure 156/93, pulse 87, temperature (!) 35.6 ?C (96.1 ?F), height 168.9 cm (5' 6.5), weight 95.3 kg (210 lb 3.2 oz). GENERAL APPEARANCE: well SKIN: Scabbed papules and some blisters w/ erythematous base over right sided V1 distribution c/w healing zoster rash EYES: PERRLA, no conjunctival erythema, small area of bluish discoloration of the sclera c/w prior history of scleritis w/ ulceration EARS: External ears normal, TM's scarred around the periphery bilaterally (pt reports frequent ear infections as a child). Small amount of cerumen present bilaterally. NOSE/SINUSES: nasal mucosal inflammation, scant greenish/nguyễn mucous OROPHARYNX: no oral lesions present, no oral ulcers. LUNGS: clear HEART: RRR, no gallops, rubs or murmurs ABDOMEN: soft, non-tender, normal BS, no organomegaly or masses MUSCULOSKELETAL: normal NEURO: normal Lab results: WBC Date Value Ref Range Status 08/30/2017 10.22 3.70 - 11.00 k/uL Final Hemoglobin Date Value Ref Range Status 08/30/2017 14.4 13.0 - 17.0 g/dL Final Hematocrit Date Value Ref Range Status 08/30/2017 42.6 39.0 - 51.0 % Final Platelet Count Date Value Ref Range Status 08/30/2017 314 150 - 400 k/uL Final Creatinine Date Value Ref Range Status 08/30/2017 0.77 0.73 - 1.22 mg/dL Final Glucose Date Value Ref Range Status 08/30/2017 96 74 - 99 mg/dL Final Comment: The [place] Diabetes Association (ADA) provides guidance for cutoff values for fasting glucose and random glucose. The ADA defines fasting as no caloric intake for at least 8 hours. Fasting plasma glucose results between 100 to 125 mg/dL indicate increased risk for diabetes (prediabetes). Fasting plasma glucose results greater than or equal to 126 mg/dL meet the criteria for diagnosis of diabetes. In the absence of unequivocal hyperglycemia, results should be confirmed by repeat testing. In a patient with classic symptoms of hyperglycemia or hyperglycemic crisis, random plasma glucose results greater than or equal to 200 mg/dL meet the criteria for diagnosis of diabetes. Reference: Standards of Medical Care in Diabetes 2016, [place] [employer] Association. Diabetes Care. 2016.39(Suppl 1). AST Date Value Ref Range Status 08/30/2017 35 14 - 40 U/L Final ALT Date Value Ref Range Status 08/30/2017 33 10 - 54 U/L Final WSR Date Value Ref Range Status 08/30/2017 8 0 - 15 mm/hr Final CRP Date Value Ref Range Status 08/30/2017 0.3 <0.9 mg/dL Final Alkaline Phosphatase Date Value Ref Range Status 08/30/2017 84 36 - 108 U/L Final Urine: Specific [place], Ur Date Value Ref Range Status 08/30/2017 1.013 1.005 - 1.030 Final Glucose, Urine Date Value Ref Range Status 08/30/2017 Negative Negative mg/dL Final Bilirubin, Urine Date Value Ref Range Status 08/30/2017 Negative Negative Final Ketones, Urine Date Value Ref Range Status 08/30/2017 Trace (A) Negative Final Hemoglobin/Blood,Ur Date Value Ref Range Status 08/30/2017 Negative Negative Final Protein, Urine Date Value Ref Range Status 08/30/2017 Negative Negative mg/dL Final ASSESSMENT: 1. 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 He does seem to have mild sinus involvement, which is manageable per pt Pt reports being told his scleritis was improved when he saw [facility] on Saturday02/24/18 Feels the rituximab has been helping and denies side effects Had double dose of rituximab in 12/13, due for repeat infusion in 06/15 Continued on MTX 25 mg q week and prednisone 20 mg q day, interested in tapering prednisone Does report some fatigue with his MTX which improves 2-3 days after the dose Available laboratories were reviewed with the patient. Herpes Zoster: Currently has Zoster of the right V1 dermatome, no eye involvement Currently on a 10 day course of valacyclovir 1g TID x10 days Reports improvement in his rash since starting the medication Has a follow up appointment with [facility] on Saturday03/03/18 Pt denies other recent infections PLAN: Continue MTX 25 mg q week + folic acid Continue Rituximab, okay to give single maintenance dose of only one gram in 06/15, as long as disease remains quiescent Taper prednisone. Pt will go down to 15 mg x1 week, then will decrease his dose by 5 mg per week. 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 Follow-up: September or October 2018 I spent 40 minutes in the visit, with more than 50% of the total face to face time of the visit in the counseling/coordination of care. Lencho Mckeon, DO Rheumatology Staff I have reviewed the history and physical examination obtained and documented by the fellow and I personally participated in the bui components. I have discussed the case and management of the patient's care with the fellow. The above plan reflects my recommendations Duane Morrissey MD Referring Provider: SELF [[id number]] Allergies As of Date: 02/27/2018 Noted Allergy Reaction COMBIGAN (BRIMONIDINE-TIMOLOL) 07/16/2017 5 - Intolerance Comments: Hypersensitivity - red eye Date Reviewed: 02/27/2018 Reviewed by: Aissatou Beltran Ma - Fully Assessed Primary Visit Diagnosis:Granulomatosis with polyangiitis (HCC) [M31.30] Other Visit Diagnoses:Scleritis, unspecified laterality [H15.009] Acute trigeminal herpes zoster [B02.22] High risk medication use [Z79.899] Order(s):folic acid 1 mg tabletTake 1 tablet by mouth once daily.Disp: Rfl: predniSONE (DELTASONE) 5 mg [id number] mg daily for 1 weeks then cut down by 5 mg every 1 week until offDisp: 90 tabletRfl: 1 alendronate (FOSAMAX) 70 mg tabletTake 1 tablet by mouth once each week. In the morning with a full glass of water, on an empty stomach. Do not take anything else by mouth or lie down for the next 30 minutes.Disp: Rfl: Prescriptions as of 02/27/2018 Sig: VALACYCLOVIR 1 GRAM TABLET Take 1,000 mg by mouth three * FOLIC ACID 1 MG TABLET Take 1 tablet by mouth once d* PREDNISONE 5 MG TABLET 15 mg daily for 1 weeks then * ALENDRONATE 70 MG TABLET Take 1 tablet by mouth once e* SULFAMETHOXAZOLE 800 MG-TRIME* TAKE 1 TABLET BY MOUTH ON MON* METHOTREXATE SODIUM 2.5 MG TA* Take 10 tablets by mouth ever* MOXIFLOXACIN 0.5 % EYE DROPS Use 1 Drop in the right eye e* BRIMONIDINE 0.15 % EYE DROPS Use 1 Drop in the right eye o* Problem List As Of Date 02/27/2018 Noted Resolved Granulomatosis with polyangiitis (HCC) [M31.30] INVALID FOR* More... Scleritis [H15.009] INVALID FOR* Prescriptions ordered this encounter Disp Refills Start End FOLIC ACID 1 MG TABLET 02/27/2018 Class: OTC Route: ORAL Sig: Take 1 tablet by mouth once daily. PREDNISONE 5 MG TABLET 90 t* 1 02/27/2018 Si mg daily for 1 weeks then cut down by 5 mg every 1 week until off ALENDRONATE 70 MG TABLET 02/27/2018 Class: Med Update Route: ORAL Sig: Take 1 tablet by mouth once each week. In the morning with a full glass of water, on an empty stomach. Do not take anything else by mouth or lie down for the next 30 minutes. Medications Discontinued During This Encounter folic acid 1 mg tablet 08/30/2017 02/27/2018 Class: Med Update Route: ORAL Sig: Take 1 tablet by mouth once daily. Disc: Reason for discontinue is not on file. predniSONE (DELTASONE) 20 mg tablet 08/30/2017 02/27/2018 Class: Med Update Route: ORAL Sig: Take 2 tablets by mouth once daily. Disc: Reason for discontinue is not on file. Follow-up and Disposition History Recorded Encounter Status:Closed by DUANE RENEE MD on 02/27/18 DOWNTIME REPORT Observed: 01/16/2018 Status: F Source: RUDY 1:56 PM [facility] REPOSITORY [facility] Medical Records Department [address] [place] [address] Downtime Report MR#: [id number] Acct: [id number] Name: JAELYN HITCHCOCK Rep #: [id number] : 1960 57 From: Girma Frazier PCP: Teri Au MD Status: REG CLI This patient was seen during an EMR downtime December 30, 2017 - January 06, 2018. This patient may have a combination of paper and electronic documentation or all paper documentation. All documentation is viewable within the e-chart portion of [employer] for each patient visit. COMPREHENSIVE METABOLIC Collected: 01/06/2018 Status: F Source: [employer] PROF[employer] 7:51 AM [facility] REPOSITORY TYPE CODE TESTS RESULT OUT OF RANGE REFERENCE UNITS LAB L501.0100 74-106 mg/dL Low GLU 72 Result Comment: Please note revised GLUCOSE reference range effective 2017. LAB L501.1000 7-18 mg/dL Normal BUN 18 LAB L501.1100 0.70-1.30 mg/dL Normal CREAT,SERUM 0.72 Result Comment: The validity of the calculated GFR AND GFRAA in patients over 70 years has not been determined. Clinical correlation is essential. LAB L501.1110 >60 mL/min Normal EST GFR 119 Result Comment: Non- GFR Calc LAB L501.1115 >60 mL/min Normal EST GFR - AA 144 Result Comment: GFR Calc LAB L501.1300 10-20 RATIO High BUN/CRE 24.9 LAB L501.1500 6.4-8.2 g/dL T Normal PROT 6.8 LAB L501.1800 3.2-5.0 g/dL Normal ALB 3.7 LAB L501.1950 2.2-4.2 g/dL Normal GLOB 3.1 LAB L501.2000 0.9-2.4 RATIO Normal A/G 1.2 LAB L501.2200 8.5-10.1 mg/dL CA Normal 8.7 LAB L501.4100 15-37 U/L Normal AST 21 LAB L501.4305 45-117 U/L Normal ALK P 56 LAB L501.4405 16-61 U/L Normal ALT 52 LAB L501.4600 0.20-1.00 mg/dL T Normal BILI 0.30 LAB L501.5300 136-145 mmol/L NA Normal 139 LAB L501.5600 3.5-5.1 mmol/L K Normal 3.8 LAB L501.5900 98-107 mmol/L CL Normal 103 LAB L501.6100 21.0-32.0 mmol/L Normal CO2 26.0 LAB L501.6200 5-15 Normal GAP 10 Performed By: #### L500.4050, L501.6710 #### [facility] [address] [facility] [place], [address] CRP Collected: 01/06/2018 Status: F Source: [employer] 7:51 AM [facility] REPOSITORY TYPE CODE TESTS RESULT OUT OF RANGE REFERENCE UNITS LAB L501.6710 0.0-3.0 mg/L Normal < 2.90 C-REACTIVE PROT Result Comment: C-Reactive Protein (CRP) provides useful information for the diagnosis, therapy and monitoring of inflammatory processes and associated diseases. For the evaluation of Relative Risk for Cardiovascular Disease, a High Sensitivity CRP (HSCRP) should be ordered. Performed By: #### L500.4050, L501.6710 #### [facility] [address] [place], [place], [id number] CBC W/DIFF, AUTOMATED Collected: 01/06/2018 Status: F Source: RUDY 7:51 AM [facility] REPOSITORY TYPE CODE TESTS RESULT OUT OF RANGE REFERENCE UNITS LAB L100.1000 4.4-11.0 K/mm3 Normal WBC 9.3 LAB L100.1200 4.6-6.2 M/mm3 Low RBC 4.18 LAB L100.1300 13.0-16.5 g/dl Normal HGB 13.4 LAB L100.1400 40-54 % Normal HCT 41.3 LAB L100.1500 80-94 fL High MCV 98.8 LAB L100.1600 27.0-32.0 pg High MCH 32.1 LAB L100.1700 32-36 g/gl Normal MCHC 32.4 LAB L100.1810 11.6-14.6 % High RDW CV 15.8 LAB L100.1820 35.1-43.9 fl High RDW SD 56.6 LAB L100.1900 150-450 K/mm3 Normal PLT 263 LAB L100.2000 6.2-12.0 fl Normal MPV 9.3 LAB L100.2100 47-70 % Normal NEUT% 68.0 LAB L100.2200 19-41 % Normal LY% 20.5 LAB L100.2300 0-10 % Normal MONO% 8.6 LAB L100.2400 0-5 % Normal EO% 1.0 LAB L100.2500 0-1 % Normal BASO% 0.3 LAB L100.2550 0.0-0.9 % High IM GRAN % 1.600 Result Comment: IG% - Immature Granulocytes (promyelocytes, myelocytes and metamyelocytes) > 1% indicates that a LEFT SHIFT is Present. LAB L100.2620 2.0-7.7 X10 3/uL Normal Absolute Neut 6.3 LAB L100.2720 0.83-4.51 X10 3/ul Normal Absolute Lymph 1.90 Performed By: #### L100.0100, L101.9900 #### [facility] [address] [place], [place], [address] ERYTHROCYTE SED RATE Collected: 01/06/2018 Status: F Source: RUDY 7:51 AM [facility] REPOSITORY TYPE CODE TESTS RESULT OUT OF RANGE REFERENCE UNITS LAB L102.0000 0-20 mm/hr Normal SED RATE 4 Performed By: #### L100.0100, L101.9900 #### [facility] [place], [address] CBC W/DIFF, AUTOMATED Collected: 11/06/2017 Status: F Source: RUDY 7:57 AM [facility] REPOSITORY TYPE CODE TESTS RESULT OUT OF RANGE REFERENCE UNITS LAB L100.1000 4.4-11.0 K/mm3 Normal WBC 9.3 LAB L100.1200 4.6-6.2 M/mm3 Low RBC 4.15 LAB L100.1300 13.0-16.5 g/dl Normal HGB 13.6 LAB L100.1400 40-54 % Normal HCT 42.0 LAB L100.1500 80-94 fL High MCV 101.2 LAB L100.1600 27.0-32.0 pg High MCH 32.8 LAB L100.1700 32-36 g/gl Normal MCHC 32.4 LAB L100.1810 11.6-14.6 % High RDW CV 15.2 LAB L100.1820 35.1-43.9 fl High RDW SD 55.3 LAB L100.1900 150-450 K/mm3 Normal PLT 265 LAB L100.2000 6.2-12.0 fl Normal MPV 9.1 LAB L100.2100 47-70 % High NEUT% 70.5 LAB L100.2200 19-41 % Low LY% 18.5 LAB L100.2300 0-10 % Normal MONO% 9.0 LAB L100.2400 0-5 % Normal EO% 0.5 LAB L100.2500 0-1 % Normal BASO% 0.1 LAB L100.2550 0.0-0.9 % High IM GRAN % 1.400 Result Comment: IG% - Immature Granulocytes (promyelocytes, myelocytes and metamyelocytes) > 1% indicates that a LEFT SHIFT is Present. LAB L100.2620 2.0-7.7 X10 3/uL Normal Absolute Neut 6.5 LAB L100.2720 0.83-4.51 X10 3/ul Normal Absolute Lymph 1.71 Performed By: #### L100.0100, L101.9900 #### [facility] [address] [place], [address] ERYTHROCYTE SED RATE Collected: 11/06/2017 Status: F Source: [employer] 7:57 AM [facility] REPOSITORY TYPE CODE TESTS RESULT OUT OF RANGE REFERENCE UNITS LAB L102.0000 0-20 mm/hr Normal SED RATE 3 Performed By: #### L100.0100, L101.9900 #### [facility] [address] [place], [place], [address] COMPREHENSIVE METABOLIC Collected: 11/06/2017 Status: F Source: [facility] 7:57 AM [facility] REPOSITORY TYPE CODE TESTS RESULT OUT OF RANGE REFERENCE UNITS LAB L501.0100 74-106 mg/dL Normal GLU 85 Result Comment: Please note revised GLUCOSE reference range effective 2017. LAB L501.1000 7-18 mg/dL Normal BUN 16 LAB L501.1100 0.70-1.30 mg/dL Normal CREAT,SERUM 0.74 Result Comment: The validity of the calculated GFR AND GFRAA in patients over 70 years has not been determined. Clinical correlation is essential. LAB L501.1110 >60 mL/min Normal EST GFR 116 Result Comment: Non- GFR Calc LAB L501.1115 >60 mL/min Normal EST GFR - AA 141 Result Comment: GFR Calc LAB L501.1300 10-20 RATIO High BUN/CRE 21.7 LAB L501.1500 6.4-8.2 g/dL T Normal PROT 6.8 LAB L501.1800 3.2-5.0 g/dL Normal ALB 3.7 LAB L501.1950 2.2-4.2 g/dL Normal GLOB 3.1 LAB L501.2000 0.9-2.4 RATIO Normal A/G 1.2 LAB L501.2200 8.5-10.1 mg/dL CA Normal 8.7 LAB L501.4100 15-37 U/L Normal AST 25 LAB L501.4305 45-117 U/L Normal ALK P 73 LAB L501.4405 16-61 U/L Normal ALT 48 Result Comment: Please note revised ALT reference range effective 2017. LAB L501.4600 0.20-1.00 mg/dL Normal T BILI 0.30 LAB L501.5300 136-145 mmol/L Normal NA 139 LAB L501.5600 3.5-5.1 mmol/L Normal K 3.8 LAB L501.5900 98-107 mmol/L Normal CL 103 LAB L501.6100 21.0-32.0 mmol/L Normal CO2 27.0 LAB L501.6200 5-15 Normal GAP 9 Performed By: #### L500.4050, L501.6710 #### [facility] [address] [place], [address] CRP Collected: 11/06/2017 Status: F Source: [employer] 7:57 AM [facility] REPOSITORY TYPE CODE TESTS RESULT OUT OF RANGE REFERENCE UNITS LAB L501.6710 0.0-3.0 mg/L Normal < 2.90 C-REACTIVE PROT Result Comment: C-Reactive Protein (CRP) provides useful information for the diagnosis, therapy and monitoring of inflammatory processes and associated diseases. For the evaluation of Relative Risk for Cardiovascular Disease, a High Sensitivity CRP (HSCRP) should be ordered. Performed By: #### L500.4050, L501.6710 #### [facility] [address] [place], [address] DEXA BONE DENSITY Observed: 09/26/2017 Status: F Source: [employer] STUDY () 8:26 AM [facility] REPOSITORY [facility] Imaging Services [address] [place] [address] Dexa Bone Density Study () MR#: [id number] Acct: [id number] Name: JAELYN HITCHCOCK Rep #: [id number] : 1960 M 57 From: Alejo Landeros MD PCP: Teri Au MD Status: REG CLI Study: Dexa Bone Density Study () Date of Exam: 09/26/17 Exam# [id number] Ordering Dr: Meryl Gross MD STUDY: DUAL ENERGY X-RAY ABSORPTIOMETRY / DXA REASON FOR EXAM: Male, 57 years old. History of prednisone use. Loss of height. TECHNIQUE: Bone Mineral Density (BMD) measurements of lumbar spine and bilateral hips were obtained. COMPARISON: None. FINDINGS: Lumbar Spine (L1-L4): g/cm2 (1.233) / T-score (0.1) / Z-score (0.4) Findings are suggestive of normal bone density with a low fracture risk. Left Femur Total: g/cm2 (0.920) / T-score (-1.3) / Z- score (-0.8) Left Femoral Neck: g/cm2 (0.860) / T-score (-1.6) / Z- score (-0.8) Right Femur Total: g/cm2 (0.923) / T-score (-1.2) / Z- score (-0.8) Right Femoral Neck: g/cm2 (0.854) / T-score (-1.7) / Z-score (-0.8) HPBD/Dexa Bone Density Study (HP) IMPRESSION: The patient is considered osteopenic at the level of the femoral neck as outlined below according to World Rory Organization (WHO) criteria with a moderate fracture risk. Reference Information: The T-score is the number of standard deviations above or below the standard which is normal for young adults at their peak bone mineral density. The World Health Organization (WHO) interprets the T-scores as follows: Above -1 Normal bone density Between -1 and -2.5 Osteopenia Equal to / or below -2.5 Osteoporosis As a practical clinical guideline, osteopenia may be graded as follows: Mild -1 through -1.5 Moderate -1.6 through -2.0 Severe -2.1 through -2.4 The Z-score is the number of standard deviations above or below age-matched controls. A Z-score of less than -1.5 would be considered abnormal. References: 1. NIH Osteoporosis and Related Bone Diseases http://www.osteo.org 2. International Society for Clinical Densitometry http://www.iscd.org 3. National Osteoporosis Foundation http://www.nof.org Electronically Signed: Alejo Landeros MD at 8:28 EST Tel [phone], Service support , CC: Teri Au MD; Meryl Gross MD Motion Picture Projectionist Apprentice: Signed URINALYSIS, ROUTINE Collected: 09/09/2017 Status: F Source: [employer] ([employer]) 8:49 AM [facility] REPOSITORY Order Comment: How was Urine Obtained? CLEAN CATCH TYPE CODE TESTS RESULT OUT OF RANGE REFERENCE UNITS LAB L400.3000 Yellow COLOR Normal Yellow LAB L400.3050 Clear Normal CLARITY Sl. Cloudy LAB L400.3200 Normal mg/dl Normal GLUCOSE, UR Normal LAB L400.3300 Negative mg/dL Normal BILIRUBIN URINE Negative LAB L400.3400 Negative mg/dl Normal KETONE UR Negative LAB L400.3465 1.002-1.030 Normal SP.GR. DIPSTX 1.015 LAB L400.3550 5.0 - 8.0 pH UR Normal 6.0 LAB L400.3600 Negative mg/dl PROT Normal DIPSTX Negative LAB L400.3700 Normal mg/dl Normal UROBILI Normal LAB L400.3750 Negative Normal NITRITE UR Negative LAB L400.3780 Negative /ul High 25 OCCULT BLOOD-UR LAB L400.3800 Negative /ul LEUK Normal ESTERASE Negative Performed By: #### L400.2010 #### [facility] [address] [place], [place], [id number] COMPREHENSIVE METABOLIC Collected: 09/09/2017 Status: F Source: [facility] PROFIL 8:49 AM [facility] REPOSITORY TYPE CODE TESTS RESULT OUT OF RANGE REFERENCE UNITS LAB L501.0100 74-106 mg/dL Normal GLU 83 Result Comment: Please note revised GLUCOSE reference range effective 2017. LAB L501.1000 7-18 mg/dL Normal BUN 18 LAB L501.1100 0.70-1.30 mg/dL Normal CREAT,SERUM 0.81 Result Comment: The validity of the calculated GFR AND GFRAA in patients over 70 years has not been determined. Clinical correlation is essential. LAB L501.1110 >60 mL/min Normal EST GFR 105 Result Comment: Non- GFR Calc LAB L501.1115 >60 mL/min Normal EST GFR - AA 127 Result Comment: GFR Calc LAB L501.1300 10-20 RATIO High BUN/CRE 22.3 LAB L501.1500 6.4-8.2 g/dL T Normal PROT 7.3 LAB L501.1800 3.2-5.0 g/dL Normal ALB 3.9 LAB L501.1950 2.2-4.2 g/dL Normal GLOB 3.4 LAB L501.2000 0.9-2.4 RATIO Normal A/G 1.1 LAB L501.2200 8.5-10.1 mg/dL CA Normal 8.9 LAB L501.4100 15-37 U/L Normal AST 24 LAB L501.4305 45-117 U/L Normal ALK P 76 LAB L501.4405 16-61 U/L High ALT 62 Result Comment: Please note revised ALT reference range effective 2017. LAB L501.4600 0.20-1.00 mg/dL Normal T BILI 0.40 LAB L501.5300 136-145 mmol/L Normal NA 137 LAB L501.5600 3.5-5.1 mmol/L Low K 3.2 LAB L501.5900 98-107 mmol/L Normal CL 103 LAB L501.6100 21.0-32.0 mmol/L Normal CO2 25.0 LAB L501.6200 5-15 Normal GAP 9 Performed By: #### L500.4050, L501.6710 #### [facility] [address] [place], [place], [address] CRP Collected: 09/09/2017 Status: F Source: RUDY 8:49 AM [facility] REPOSITORY TYPE CODE TESTS RESULT OUT OF RANGE REFERENCE UNITS LAB L501.6710 0.0-3.0 mg/L Normal < 2.90 C-REACTIVE PROT Result Comment: C-Reactive Protein (CRP) provides useful information for the diagnosis, therapy and monitoring of inflammatory processes and associated diseases. For the evaluation of Relative Risk for Cardiovascular Disease, a High Sensitivity CRP (HSCRP) should be ordered. Performed By: #### L500.4050, L501.6710 #### [facility] [place], [address] CBC W/DIFF, AUTOMATED Collected: 09/09/2017 Status: C Source: [employer] 8:49 AM [facility] REPOSITORY TYPE CODE TESTS RESULT OUT OF RANGE REFERENCE UNITS LAB L100.1000 4.4-11.0 K/mm3 High WBC 13.3 LAB L100.1200 4.6-6.2 M/mm3 Low RBC 4.22 LAB L100.1300 13.0-16.5 g/dl Normal HGB 13.9 LAB L100.1400 40-54 % Normal HCT 40.8 LAB L100.1500 80-94 fL High MCV 96.7 LAB L100.1600 27.0-32.0 pg High MCH 32.9 LAB L100.1700 32-36 g/gl Normal MCHC 34.1 LAB L100.1810 11.6-14.6 % High RDW CV 16.0 LAB L100.1820 35.1-43.9 fl High RDW SD 54.4 LAB L100.1900 150-450 K/mm3 Normal PLT 333 LAB L100.2000 6.2-12.0 fl Normal MPV 9.5 LAB L100.2100 47-70 % High NEUT% 70.7 LAB L100.2200 19-41 % Normal LY% 19.4 LAB L100.2300 0-10 % Normal MONO% 7.0 LAB L100.2400 0-5 % Normal EO% 0.4 LAB L100.2500 0-1 % Normal BASO% 0.3 LAB L100.2550 0.0-0.9 % High IM GRAN % 2.200 Result Comment: IG% - Immature Granulocytes (promyelocytes, myelocytes and metamyelocytes) > 1% indicates that a LEFT SHIFT is Present. LAB L100.2620 2.0-7.7 X10 3/uL High Absolute Neut 9.4 LAB L100.2720 0.83-4.51 X10 3/ul Normal Absolute Lymph 2.58 LAB L100.9900 Normal PATH REV Reviewed Result Comment: Neutrophilic leukocytosis. Clinical correlation suggested. Chris Elkins D.O. 09/10/17 AMENDED REPORT 09/10/17 1006 PATH REV previously reported as: November Performed By: #### L100.0100, L101.9900 #### [facility] [address] [place], [place], [address] ERYTHROCYTE SED RATE Collected: 09/09/2017 Status: F Source: [place] 8:49 AM [facility] REPOSITORY TYPE CODE TESTS RESULT OUT OF RANGE REFERENCE UNITS LAB L102.0000 0-20 mm/hr Normal SED RATE 10 Performed By: #### L100.0100, L101.9900 #### [facility] [address] [place], [place], [address] HEPATITIS B SURFACE Collected: 09/09/2017 Status: F Source: [place] AG 8:49 AM [facility] REPOSITORY TYPE CODE TESTS RESULT OUT OF RANGE REFERENCE UNITS LAB L3100.0400 Negative Normal HB Negative SURF AG Performed By: #### L3100.0390, L3100.0460, L3100.0528, L3100.0625, L3400.7000 #### [facility] (refer to report for specific site) refer to report for address and phone number HEPATITIS B CORE AB Collected: 09/09/2017 Status: F Source: [place] TOTAL 8:49 AM [facility] REPOSITORY TYPE CODE TESTS RESULT OUT OF RANGE REFERENCE UNITS LAB L3100.0460 Negative Normal HEP B Negative CORE,TOT Result Comment: Performed at: [address] [id number] Duty Officer: Dontae Hess PhD, Phone: [phone] Performed By: #### L3100.0390, L3100.0460, L3100.0528, L3100.0625, L3400.7000 #### [facility] (refer to report for specific site) refer to report for address and phone number HEP B SURFACE Collected: 09/09/2017 Status: F Source: [place] ANTIBODIES 8:49 AM [facility] REPOSITORY TYPE CODE TESTS RESULT OUT OF RANGE REFERENCE UNITS LAB L3100.0528 . Normal Hep B Non Reactive Loan AB Result Comment: Non Reactive: Inconsistent with immunity, less than 10 mIU/mL Reactive: Consistent with immunity, greater than 9.9 mIU/mL Performed By: #### L3100.0390, L3100.0460, L3100.0528, L3100.0625, L3400.7000 #### [facility] (refer to report for specific site) refer to report for address and phone number HEPATITIS C ANTIBODIES Collected: 09/09/2017 Status: F Source: [place] 8:49 AM [facility] REPOSITORY TYPE CODE TESTS RESULT OUT OF RANGE REFERENCE UNITS LAB L3100.0650 0.0-0.9 s/co ratio Normal HEP C AB <0.1 Result Comment: Negative: < 0.8 Indeterminate: 0.8 - 0.9 Positive: > 0.9 The CDC recommends that a positive HCV antibody result be followed up with a HCV Nucleic Acid Amplification test (238988). Performed By: #### L3100.0390, L3100.0460, L3100.0528, L3100.0625, L3400.7000 #### [facility] (refer to report for specific site) refer to report for address and phone number QUANTIFERON TB-GOLD Collected: 09/09/2017 Status: F Source: [employer] 8:49 AM [facility] REPOSITORY TYPE CODE TESTS RESULT OUT OF RANGE REFERENCE UNITS LAB L3400.7025 Negative Normal QFT Negative TB GOLD Result Comment: The specimen received for QuantiFERON testing was incubated by the ordering institution. Specific procedures outlined in our Directory of Services and in the package insert for the QuantiFERON Gold (In Tube) test must be followed to enable for proper stimulation of cells for the production of interferon gamma. LAB L3400.7035 . Normal QFT TB Comment POS CRIT Result Comment: To be considered positive a specimen should have a TB Ag minus Nil value greater than or equal to 0.35 IU/mL and in addition the TB Ag minus Nil value must be greater than or equal to 25% of the Nil value. There may be insufficient information in these values to differentiate between some negative and some indeterminate test values. LAB L3400.7045 . IU/mL Normal QFT TB AB 0.02 VALUE LAB L3400.7055 . IU/mL Normal QFT NIL VALUE 0.03 LAB L3400.7065 . IU/mL > Normal QFT MITOGEN 10.00 ROGER LAB L3400.7075 . IU/mL < Normal QFT AG - NIL 0 LAB L3400.7085 . Normal QFT TB INTER Comment Result Comment: The QuantiFERON TB Gold (in Tube) assay is intended for use as an aid in the diagnosis of TB infection. Negative results suggest that there is no TB infection. In patients with high suspicion of exposure, a negative test should be repeated. A positive test indicates infection with Mycobacterium tuberculosis. Among individuals without tuberculosis infection, a positive test may be due to exposure to M. kansasii, M. szulgai or M. marinum. On the Internet, go to cdc.gov/tb for further details. Performed By: #### L3100.0390, L3100.0460, L3100.0528, L3100.0625, L3400.7000 #### [facility] (refer to report for specific site) refer to report for address and phone number CHEST PA AND LATERAL Observed: 09/09/2017 Status: F Source: [employer] 8:47 AM [facility] REPOSITORY [facility] Imaging Services [address] [place] [address] Chest PA and Lateral MR#: [id number] Acct: [id number] Name: JAELYN HITCHCOCK Shona Rep #: [id number] : 1960 57 From: Alejo Landeros MD PCP: Teri Au MD Status: REG CLI Study: Chest PA and Lateral Date of Exam: 09/09/17 Exam# [id number] Ordering Dr: Meryl Gross MD STUDY: X-RAY CHEST REASON FOR EXAM: Male, 57 years old. Long-term drug therapy. No chest complaints. TECHNIQUE: PA and lateral views of the chest. COMPARISON: None. FINDINGS: The lungs are clear and expanded. Scattered calcified granulomas. There is no demonstrated pleural abnormality. Normal size heart. Normal mediastinum and smith. Normal visualized pulmonary arteries. Normal visualized aortic arch and descending thoracic aorta. There are diffuse degenerative changes of the visualized thoracic spine. Normal visualized ribs, clavicles, and shoulders. There is no demonstrated abnormality of the visualized soft tissue structures of the upper abdomen. RAD/Chest PA and Lateral IMPRESSION: No acute abnormality is seen. Electronically Signed: Alejo Landeros MD at 10:45 EST Tel [phone], Service support , CC: Teri Au MD; Meryl Gross MD Motion Picture Projectionist Apprentice: Signed CBC Collected: 08/30/2017 Status: F Source: [place] 10:09 AM [facility] REPOSITORY TYPE CODE TESTS RESULT OUT OF REFERENCE UNITS RANGE LAB WBC 3.70-11.00 k/uL WBC 10.22 LAB RBC 4.20-6.00 m/uL RBC 4.46 LAB HGB 13.0-17.0 g/dL Hemoglobin 14.4 LAB HCT 39.0-51.0 % Hematocrit 42.6 LAB MCV 80.0-100.0 fL MCV 95.5 LAB MCH 26.0-34.0 pG MCH 32.3 LAB MCHC 30.5-36.0 g/dL MCHC 33.8 LAB RDWCV 11.5-15.0 % RDW-CV High 15.9 LAB PLTCT 150-400 k/uL Platelet Count 314 LAB MPV 9.0-12.7 fL MPV 9.5 LAB ABSNUC <0.01 k/uL Absolute nRBC <0.01 Performed By: #### CBC, CMP, CRP, VITD, WSR, ANCA #### [facility] [address] [place], [place] [address] COMP METABOLIC PANEL Collected: 08/30/2017 Status: F Source: [place] 10:09 AM [facility] REPOSITORY TYPE CODE TESTS RESULT OUT OF REFERENCE UNITS RANGE LAB TP 6.3-8.0 g/dL Protein, Total 6.8 LAB ALB 3.9-4.9 g/dL Albumin 4.3 LAB CA 8.5-10.2 mg/dL Calcium, Total 9.4 LAB TBIL 0.2-1.3 mg/dL Bilirubin, Total 0.8 LAB ALKP 36-108 U/L Alkaline Phosphatase 84 LAB AST 14-40 U/L AST 35 LAB GLU 74-99 mg/dL Glucose 96 Result Comment: The [place] Diabetes Association (ADA) provides guidance for cutoff values for fasting glucose and random glucose. The ADA defines fasting as no caloric intake for at least 8 hours. Fas ting plasma glucose results between 100 to 125 mg/dL indicate increased risk for diabetes (prediabetes). Fasting plasma glucose results greater than or equal to 126 mg/dL meet the criteria for diagnosis of diabetes. In the absence of unequivocal hyperglycemia, results should be confirmed by repeat testing. In a patient with classic symptoms of hyperglycemia or hyperglycemic crisis, random plasma glucose results greater than or equal to 200 mg/dL meet the criteria for diagnosis of diabetes. Reference: Standards of Medical Care in Diabetes 2016, [place] [employer] Association. Diabetes Care. 2016.39(Suppl 1). LAB BUN 9-24 mg/dL BUN 16 LAB CRET 0.73-1.22 mg/dL Creatinine 0.77 LAB NA 136-144 mmol/L Sodium 136 LAB K 3.7-5.1 mmol/L Potassium 4.1 LAB CL 97-105 mmol/L Chloride 97 LAB CO2 22-30 mmol/L CO2 24 LAB AGAP 9-18 mmol/L Anion Gap 15 LAB ALT 10-54 U/L ALT 33 LAB GFRAA eGFR- Amer. >60 LAB GFRNAA . eGFR-All Other Races >60 Result Comment: eGFR (Estimated GFR) Units of measure: mL/min/1.73 meters squared eGFR is derived from the reexpressed MDRD Study equation using the following parameters: serum creatinine, age, gender and race. The creatinine assay has been calibrated to be traceable to IDMS. An eGFR <60 mL/min/1.73m2 for >3 months is consistent with chronic kidney disease. Refer to KDOQI guidelines for clinical interpretation. In patients with unstable renal function, e.g. those with acute kidney injury, the eGFR may not accurately reflect actual GFR. Performed By: #### CBC, CMP, CRP, VITD, WSR, ANCA #### [facility] [address] [place] [address] C-REACTIVE PROTEIN Collected: 08/30/2017 Status: F Source: [place] 10:09 AM [facility] REPOSITORY TYPE CODE TESTS RESULT OUT OF REFERENCE UNITS RANGE LAB CRP <0.9 mg/dL C-Reactive 0.3 Protein Performed By: #### CBC, CMP, CRP, VITD, WSR, ANCA #### [place] [address] VITAMIN D 25 HYDROXY Collected: 08/30/2017 Status: F Source: [place] 10:09 AM [facility] REPOSITORY TYPE CODE TESTS RESULT OUT OF REFERENCE UNITS RANGE LAB VITD 31.0-80.0 ng/mL Vitamin D 25 40.3 Hydroxy Result Comment: Classification of 25 [place] Vitamin D status: Insufficiency/Moderate Deficiency: < or = 30 ng/mL Sufficiency/Optimal Levels: 31 to 80 ng/mL Toxicity: > 100 ng/mL Test performed by chemiluminescent immunoassay. Performed By: #### CBC, CMP, CRP, VITD, WSR, ANCA #### [place] [address] SED RATE WESTERGREN Collected: 08/30/2017 Status: F Source: [place] 10:09 AM [facility] REPOSITORY TYPE CODE TESTS RESULT OUT OF REFERENCE UNITS RANGE LAB WSR 0-15 mm/hr Sed Rate Westergren 8 Performed By: #### CBC, CMP, CRP, VITD, WSR, ANCA #### [place] [address] ANTI-NEUTRO.CYTO.AB Collected: Status: F Source: [place] 08/30/2017 10:09 AM [facility] REPOSITORY TYPE CODE TESTS RESULT OUT OF REFERENCE UNITS RANGE LAB CANCAF Negative C-ANCA Fluorescence Negative LAB PANCAF Negative P-ANCA Fluorescence Negative LAB CANCA <1.0 AI Proteinase-3 Ab Test not performed on samples negative by immunofluoresc ence. LAB PANCA <1.0 AI Myeloperoxidase Ab Test not performed on samples negative by immunofluoresc ence. LAB ANCINT ANCA Interpretation Negative for C-ANCA and P-ANCA by indirect immunofluoresc ence. LAB ANCSTF Staff Review Staff review not performed on samples negative by immunofluoresc ence. Performed By: #### CBC, CMP, CRP, VITD, WSR, ANCA #### [place] [id number] URINALYSIS Collected: 08/30/2017 Status: F Source: [place] 10:06 AM [facility] REPOSITORY TYPE CODE TESTS RESULT OUT OF RANGE REFERENCE UNITS LAB UCOL Yellow Color Yellow LAB [facility] Clear Clarity Clear LAB UGLUC Negative mg/dL Glucose, Urine Negative LAB UBIL Negative Bilirubin, Urine Negative LAB UKET Negative Ketones, Abnormal Urine Trace Alert LAB USPG 1.005-1.030 Specific [place], Ur 1.013 LAB UHGB Negative Hemoglobin/Blood, Negative Ur LAB UPH 4.5-8.0 pH 6.0 LAB UPROT Negative mg/dL Protein, Urine Negative LAB UUROB Normal Urobilinogen Normal LAB UNITR Negative Nitrites Negative LAB ULKEST Negative Leukest Negative LAB UCOM Comments SEE COMMENT Result Comment: Microscopic not warranted LAB UMCOM Urine SEE Alexander Comment COMMENT Result Comment: N/A Performed By: #### UA #### [facility] [address] [place], [place] [address] PROGRESS Observed: 08/30/2017 Status: COMPLETED Source: [place] 9:08 AM [facility] REPOSITORY HNO ID: [id number] Author: Duane Anguiano Service: (none) Author Type: Physician Type: Progress Notes Filed: 08/30/2017 1:59 PM Note Text: Consultation requested by for an opinion regarding scleritis . 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 He was having nose bleed at the same period of his scleritis onset and had crust in his nose diagnosed as impetigo . Had sinus symptoms in the past with stuffiness in his nose , has post nasal drip He reports hearing loss related to noise No joint pains No rashes No tingling , no numbness no weakness Has been on prednisone since 2016 , whenever he tapers below 10 . Methotrexate and Humira started by Dr Allen February 2017 Records revealed +C ANCA PR3 positive , mild hematuria AND wsr 54 , normal RF HLA B 27 + PAST MEDICAL HISTORY Diagnosis Date - Elevated blood pressure, situational - NEGATIVE HISTORY OF - Scleritis Denies Gout or Pseudogout, Psoriasis, Rheumatic Fever, GERD, PUD, Liver Disease, Hepatitis , Kidney Disease, Kidney Stones, DM, CAD, Dyslipidemia, PAD, Asthma, TB infection or exposure, Pneumonias, Anemia, Seizures, Stroke, MS, Clots, Cancer, Thyroid Disease, Transfusions and Rash Allergies: Angelica [Brimonidine-Timolol] Current Outpatient Prescriptions: [START ON 09/05/2017] methotrexate 2.5 mg tablet Take 8 tablets by mouth every . predniSONE (DELTASONE) 20 mg tablet Take 2 tablets by mouth once daily. HUMIRA PEN 40 mg/0.8 mL pnkt Inject 0.8 mL subcutaneously every 2 weeks. folic acid 1 mg tablet Take 1 tablet by mouth once daily. moxifloxacin (VIGAMOX) 0.5 % ophthalmic solution Use 1 Drop in the right eye every 4 hours. brimonidine (ALPHAGAN P) 0.15 % ophthalmic solution Use 1 Drop in the right eye once daily. No current facility-administered medications for this visit. FAMILY HISTORY Problem Relation Age of Onset - No Ocular Disease Father - No Ocular Disease Mother Social History Marital status: Spouse name: Years of education: Number of children: Social History Main Topics Smoking status: Never Smoker Alcohol use: No Drug use: No REVIEW OF SYSTEMS: Constitutional: No fevers, chills, night sweats or malaise Skin: No photosensitive rash or psoriasis Head: + sinus disease Neck: No difficulty swallowing or choking Eyes: + inflammatory eye disease Mouth: No dry mouth, oral ulcers, thrush or salivary gland swelling Pulmonary: No wheeze, pleurisy, SOB, cough, sputum or hemoptysis Cardiovascular: No chest pain, palpitations or edema Gastrointestinal: No abd. pain, nausea, vomiting, diarrhea, constipation, hb or blood in stool Genitourinary: No blood in urine or dysuria Endocrine: No wt. gain, wt. loss, change in appetite, hot flashes or Raynaud's Hematologic: No bruising or bleeding Musculoskeletal: No jt. pain, stiffness or swelling Neurologic: No paresthesias or weakness Psychiatric: not depressed, not anxious, generally good mood and no sleep problems PHYSICAL EXAM General Appearance: WD/WN, NAD. Appropriate grooming. Vitals: Blood pressure 172/91, pulse 99, temperature 37.5 ?C (99.5 ?F), temperature source Temporal Artery, height 168.2 cm (5' 6.22), weight 91.7 kg (202 lb 3.2 oz). SKIN: warm and dry, no rash, normal turgor EYES: inferonasal area of scleromalacia rt side HEENT: Normal hair distribution, moist mouth, no glossitis, own teeth, no salivary gland swelling, neck supple w/o masses, normal temporal artery pulsations, non-tender. NOSE: + crust EAR: normal TM's LUNGS: clear to perc/auscultation. Good respiratory effort. ABDOMEN: soft, non-tender PERIPHERAL VASCULAR: ( -) edema/varicosities PULSES:symmetrical JOINTS REVIEW: no synovitis . 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 Jaelyn Hitchcock is 57-year-old with chronic sinus disease with crusting, nose bleed as well as postnasal drip in addition to bilateral scleritis with nodular scleritis of the right eye along with positive c-ANCA and LA 3 positive. He also had some blood in the urine and in the past . 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 I have discussed with him that he will benefit from rituximab giving the severity of his eye disease. I asked him to stop Humira and to increase his methotrexate to 10 tablets per week . Also he has been on prednisone for a long time. I asked him to taper to 30 mg for 2 weeks then 20 mg until further notice. I had the chance to discuss above with and she will facilitate the rituximab infusion. We also discussed the need for monthly blood test with CBC CMP sedimentation rate CRP and urine analysis to monitor his disease activity. Once he received the rituximab I do recommend to go down on his prednisone by 2.5 mg every 2 weeks until 10 mg then by 1 mg every 2 weeks as allowed by his eye exam. He will need a bone density. In addition I added Bactrim for PCP prophylaxis. I discussed the diagnosis with the patient and gave him literature to review. Office Visit on 08/30/17 -CBC -COMP METABOLIC PANEL -SED RATE WESTERGREN -C-REACTIVE PROTEIN (CRP) -UA CHEMSTRIP ONLY -ANTI NEUTRO CYTO AB -VITAMIN D 25 HYDROXY Follow up with me in 6 months MD ETHAN Martínez Observed: 08/07/2017 Status: COMPLETED Source: [place] 12:00 AM [facility] REPOSITORY Telephone (RHEUMN) JAELYN HITCHCOCK ([id number]) 1960 M Date Time Provider Department 08/07/17 GOMEZ LONG During your visit today, we recorded the following information about you: Chasidy Ramirez [facility] 08/07/2017 3:47 PM Signed Received records from [facility]. Records forwarded to [employer] HAND ENGRAVER to triage with Dr. Long. Chasidy Ramirez [facility] 08/12/2017 8:06 AM Signed Records reviewed by Dr. Long. Patient can see Dr. Tammie Anguiano. Records forwarded to PA Scheduling office. Allergies As of Date: 08/07/2017 Noted Allergy Reaction ANGELICA (BRIMONIDINE-TIMOLOL) 07/16/2017 5 - Intolerance Comments: Hypersensitivity - red eye Date Reviewed: 07/16/2017 Reviewed by: Anna Clarke (Coa) - Fully Assessed Reason for Visit: Received Outside Medical Records [0801] Prescriptions as of 08/07/2017 Sig: MOXIFLOXACIN 0.5 % EYE DROPS Use 1 Drop in the right eye e* BRIMONIDINE 0.15 % EYE DROPS Use 1 Drop in the right eye o* METHOTREXATE SODIUM 2.5 MG TA* PREDNISONE 20 MG TABLET HUMIRA PEN 40 MG/0.8 ML SUBCU* FOLIC ACID 1 MG TABLET DORZOLAMIDE 22.3 MG-TIMOLOL 6* Use 1 Drop in both eyes twice* Problem List As Of Date: 08/07/2017 (None) Encounter Status:Closed by CHASIDY METZ on 08/07/17 ALLERGIES ALLERGIES DATE TYPE / CODE NAME / CODE REACTION SEVERITY SOURCE 12/09/2017 Drug No Known Unknown [facility] Allergy/416 Allergies/F0 Hospital [id number](SNOM [id number](RXN Repository ED CT) ORM) 07/16/2017 DRUG/[id number] BRIMONIDINE- INTOLERANCE [facility] 003(SNOMED TIMOLOL [facility] [place] [facility]) Repository ENCOUNTERS ENCOUNTERS ADMIT/DISCHARGE ACCOUNT ADMITTING ENCOUNTER LOCATION SOURCE NUMBER CLASS 07/14/2018 [id number] Ambulatory [facility] ing:MED[facility]P Repository 06/30/2018 [id number] Ambulatory [facility] ing:MEDOUTP Repository 06/06/2018 [id number] Ambulatory [facility] ing:MTLAB Repository 03/14/2018 [id number] Ambulatory [facility] ing:MTLAB Repository 02/27/2018/02/28/20 [id number] Ambulatory [address] Repository 01/06/2018 [id number] Ambulatory [facility] ing:MTLAB Repository 12/09/2017 [id number] Ambulatory [facility] ing:MEDOUTP Repository 11/25/2017 [id number] Ambulatory [facility] ing:MEDOUTP Repository 11/12/2017 [id number] Ambulatory [facility] ing:MEDOUTP Repository 11/06/2017 [id number] Ambulatory [facility] ing:MTLAB Repository 09/26/2017 [id number] Ambulatory [facility] ing:BD Repository 09/09/2017 [id number] Ambulatory [facility] ing:MTLAB Repository 08/30/2017 [id number] Ambulatory [facility] Repository 08/30/2017/09/02/19 [id number] Ambulatory [address] Repository PAYERS PAYERS ENCOUNTER GUARANTOR PAYER SUBSCRIBER SOURCE 07/14/2018 JAELYN W Primary JAELYN W [place] [id number] S Insurance:ANTHEMPolic BURKEYDOB: Community ZULEMA y [place]: [id number] [id number] Repository [address]Szu: (330) Date:[id number] [phone] () [id number], [place] [address]OV: 07/14/2018 Secondary NOT GIVENUNK Rudy Insurance:SELF PAY [facility] Number: Effective Repository Date:2018-06-30 06/30/2018 JAELYN W Primary JAELYN W [place]aker [id number] S Insurance:ANTHEMPolic BURKEYDOB: [facility] ZULEMA y Number: [id number], [place] [id number] Repository [address]Whz: (330) Date:[id number] [phone] () [address], [place] [address]NR: 06/30/2018 Secondary NOT GIVENUNK Rudy Insurance:SELF PAY [facility] Number: Effective Repository Date:2018-06-27 06/06/2018 JAELYN W Primary JAELYN W [place] [id number] S Insurance:ANTHEMPolic BURKEYDOB: [facility] ZULEMA y Number: [id number] [id number] Repository [address]Vhj: (330) Date:4194-33-21FS [phone] () [address], [place] [address]NF: 06/06/2018 Secondary NOT GIVENUNK [place] Insurance:SELF PAY [facility] Number: Effective Repository Date:2018-06-06 03/14/2018 JAELYN W Primary JAELYN W Rudy [id number] S Insurance:ANTHEMPolic BURKEYDOB: [facility] ZULEMA y Number: [id number], [place] [id number] Repository [address]Vjg: (330) Date:[id number] [phone] () [id number] [place] [address]UX: 03/14/2018 Secondary NOT GIVENUNK Rudy Insurance:SELF PAY [facility] Effective Repository Date:2018-03-14 01/06/2018 Jaelyn [id number] Primary Jaelyn BurkeyDOB: [place] Insurance:ANTHEMPolic [id number] [facility] [place] [facility] Number: Hospital [id number]: ([phone] [id number] Repository [phone] () Date:[id number] [address] [place] [address]TV: 01/06/2018 Secondary NOT GIVENUNK [place] Insurance:SELF PAY [facility] [facility] Effective Repository Date:2018-01-06 12/09/2017 Jaelyn [id number] Primary Jaelyn BurkeyDOB: Honaker S Seeley Insurance:ANTHE[employer]olic [id number] [facility] Number: Hospital [id number]: (330) [id number] Repository [phone] () Date:[id number] [id number] [place] [address] 93869RV: 12/09/2017 Secondary NOT GIVENUNK Rudy Insurance:SELF PAY [facility] Number: Effective Repository Date:2017-11-25 11/25/2017 Jaelyn [id number] Primary Jaelyn BurkeyDOB: Rudy S Seeley Insurance:ANTHEMPolic [id number] [facility] Number[place] Hospital [id number]: [phone] [id number] Repository [phone] () Date:0315-96-14RU [id number] [place] [address] 52401TS: 11/25/2017 Secondary NOT GIVENUNK Honaker Insurance:SELF PAY [facility] Number: Effective Repository Date:2017-11-13 11/12/2017 Jaelyn [id number] Primary Jaelyn BurkeyDOB: Rudy S Seeley Insurance:ANTHEMPolic [id number] [facility] Number[place] Hospital [id number]: (330) [id number] Repository [phone] (HP) Date:7060-25-77YV [address] [place] [address] 71825VI: 11/12/2017 Secondary NOT GIVENUNK Rudy Insurance:SELF PAY [facility] Number: Effective Repository Date:2017-11-04 11/06/2017 Jaelyn [id number] Primary Jaelyn BurkeyDOB: Honaker S Seeley Insurance:ANTHEMPolic [id number] [facility] [place] Number: Hospital [id number]: (330) [id number] Repository [phone] (HP) Date:0496-51-46GO [address] [place] [address] 04570MD: 11/06/2017 Secondary NOT GIVENUNK Rudy Insurance:SELF PAY [facility] Number: Effective Repository Date:2017-11-06 09/26/2017 Jaelyn [id number] Primary Jaelyn BurkeyDOB: Rudy S Zulema Insurance:ANTHEMPolic [id number] [facility] [place] Number: Hospital [id number]: (330) [id number] Repository [phone] (HP) Date:2937-93-80HC [address] [place] [address] 23349IL: 09/26/2017 Secondary NOT GIVENUNK Honaker Insurance:SELF PAY [facility] Number: Effective Repository Date:2017-09-10 09/09/2017 Jaelyn [id number] Primary Jaelyn BurkeyDOB: Honaker S Seeley Insurance:ANTHE[employer]olic [id number] [facility] [place] Number: Hospital [id number]: (330) [id number] Repository [phone] (HP) Date:5602-35-31SX [address] [place] [address] [place] [address]AY: 09/09/2017 Secondary NOT GIVENUNK Honaker Insurance:SELF PAY [facility] Number: Effective Repository Date:2017-09-09
== END ==
PROVIDERS: Family Provider Family Medicine; PCP Family Medicine; Referring Provider Internal Medicine Rheumatology; Visit Provider Internal Medicine Rheumatology
DX: M31.30 Wegener's granulomatosis without renal involvement (principal)
CPT/HCPCS: J7040; J9310; A4216

== ENCOUNTER → 2018-07-14 09:26 | Outpatient (CLI) | payer BC, SELFPAY ==
[2018-07-14 09:37] VITALS: BP 148/80; PULSE 80; RESP 18; TEMP 36.8; O2SAT 100; BMI 34.4
[2018-07-14] MEDS: MethylPREDNISolone 125 MG/2 ML Vial 100 MG IV (09:51)
--- OUTSIDE RECORDS SUMMARY | 2018-10-15 21:39 | XMS RPT_ITS ---
:1960 Author Organization [place] Support Name Relationship Address Phone FEDERICO HITCHCOCK Unavailable [address] + [place] [address] MATFO Unavailable [address] + [place] [phone] FEDERICO HITCHCOCK Unavailable [address] + [place] [address] MATFO Unavailable [address] + [place] [phone] FEDERICO HITCHCOCK Unavailable [address] + [place] [address] MATFO Unavailable [address] + [place] [phone] FEDERICO HITCHCOCK Unavailable [address] + [place] [address] MATFO Unavailable [address] + [place] [address] FEDERICO HITCHCOCK Unavailable [address] + [place] [phone] MATFO Unavailable [address] + [place] [address] FEDERICO HITCHCOCK Unavailable [address] + [place] [address] MATFO Unavailable [address] + [place] [phone] FEDERICO HITCHCOCK Unavailable [address] + [place] [phone] MATFO Unavailable [address] + [place] [phone] FEDERICO HITCHCOCK Unavailable [address] + [place] [address] POLLOTTA WIGGINS Unavailable [address] + [place] [address] FEDERICO HITCHCOCK Unavailable [address] + [place] [address] POLLOTTA WIGGINS Unavailable [address] + [place] [address] LEVAR HITCHCOCKNY Unavailable [address] + [place] [address] POLLOTTA WIGGINS Unavailable [address] + [place] [address] CORETTA FEDERICO Unavailable [address] + [place] [address] POLLOTTA WIGGINS Unavailable [address] + [place] [address] Care Team Providers Name Role Phone DUANE RENEE Attending Unavailable LUIS ARMANDO ANGUIANO, DUANE Referring Unavailable LUIS ARMANDO ANGUIANO, DUANE Attending Unavailable Vellanki, Meryl Attending [...] Attending Unavailable Vellanki, Meryl Referring Unavailable Jolliff, Etri Primary Care Unavailable Vellanki, Meryl Attending Unavailable [...] Unknown 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, Community right eye / Hospital H20.021(ICD-10) Repository 06/06/2018 Unknown 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, right eye Community / H15.011(ICD-10) Hospital Repository 06/06/2018 Unknown Z79.899 - Other long Meryl Gross Active [place] term (current) drug Community therapy / Hospital Z79.899(ICD-10) Repository 06/06/2018 Unknown M21.40 - Flat foot Meryl Gross Active [place] [pes planus] Community (acquired), Hospital unspecified foot / Repository M21.40(ICD-10) 08/30/2017 Active Ai's NA Active [place] granulomatosis [facility] Main without renal [place] involvement / Repository M31.30(ICD-10) 08/30/2017 Active Other chronic NA Active [place] sinusitis / Clinic Main J32.8(ICD-10) [place] Repository 08/30/2017 Active intermediate manager (current) NA Active [place] use of systemic Clinic Main steroids / [place] Z79.52(ICD-10) Repository 08/30/2017 Active Unspecified NA Active [place] scleritis, right eye Clinic Main / H15.001(ICD-10) [place] Repository 08/30/2017 Active Other fpc NA Active [place] (current) drug Clinic Main therapy / [place] Z79.899(ICD-10) Repository PROCEDURES PROCEDURES No Procedure Records FoundRESULTS RESULTS ERYTHROCYTE SED RATE Collected: 06/06/2018 Status: F Source: [place] 8:00 AM [facility] REPOSITORY TYPE CODE TESTS RESULT OUT OF RANGE REFERENCE UNITS LAB L102.0000 0-20 mm/hr Normal SED RATE 6 Performed By: #### L101.9900, L100.0100 #### [facility] [address] [place], [address] CBC W/DIFF, AUTOMATED Collected: 06/06/2018 Status: F Source: [place] 8:00 AM [facility] REPOSITORY TYPE CODE TESTS RESULT OUT OF [...] 1.22 Performed By: #### L101.9900, L100.0100 #### [facility] [address] [place], [place], [address] COMPREHENSIVE METABOLIC Collected: 06/06/2018 Status: F [facility] REPOSITORY TYPE CODE TESTS RESULT OUT OF [...] 7 Performed By: #### L500.4050, L501.6710 #### [facility] [address] [place], [place], [address] CRP Collected: 06/06/2018 Status: F Source: [place] 8:00 AM [facility] REPOSITORY TYPE CODE TESTS RESULT OUT OF RANGE REFERENCE UNITS LAB L501.6710 0.0-3.0 mg/L Normal < 2.90 C-REACTIVE PROT Result Comment: C-Reactive Protein (CRP) provides useful information for the diagnosis, therapy and monitoring of inflammatory processes and associated diseases. For the evaluation of Relative Risk for Cardiovascular Disease, a High Sensitivity CRP (HSCRP) should be ordered. Performed By: #### L500.4050, L501.6710 #### [facility] [address] [place], [address] ERYTHROCYTE SED RATE Collected: 03/14/2018 Status: F Source: [place] 7:43 AM [facility] REPOSITORY TYPE CODE TESTS RESULT OUT OF RANGE REFERENCE UNITS LAB L102.0000 0-20 mm/hr Normal SED RATE 8 Performed By: #### L101.9900, L100.0100 #### [facility] [address] [place], [address] CBC W/DIFF, AUTOMATED Collected: 03/14/2018 Status: F Source: [place] 7:43 AM [facility] REPOSITORY TYPE CODE TESTS RESULT OUT OF [...] 1.17 Performed By: #### L101.9900, L100.0100 #### [facility] [address] [place], [address] COMPREHENSIVE METABOLIC Collected: 03/14/2018 Status: F Source: [facility] 7:43 AM [facility] REPOSITORY TYPE CODE TESTS RESULT OUT OF [...] 8 Performed By: #### L500.4050, L501.6710 #### [facility] [address] [place], [address] CRP Collected: 03/14/2018 Status: F Source: [place] 7:43 AM [facility] REPOSITORY TYPE CODE TESTS RESULT OUT OF RANGE REFERENCE UNITS LAB L501.6710 0.0-3.0 mg/L Normal 3.00 C-REACTIVE PROT Result Comment: C-Reactive Protein (CRP) provides useful information for the diagnosis, therapy and monitoring of inflammatory processes and associated diseases. For the evaluation of Relative Risk for Cardiovascular Disease, a High Sensitivity CRP (HSCRP) should be ordered. Performed By: #### L500.4050, L501.6710 #### [facility] [address] [place], [place], [address] PROGRESS Observed: 02/27/2018 Status: COMPLETED Source: [place] 8:17 AM [facility] REPOSITORY HNO ID: [id number] Author: Duane Anguiano Service: (none) Author Type: Physician Type: Progress Notes Filed: 02/27/2018 4:44 PM Note Text: Jaelyn Hitchcock is a 57 year old male here for follow-up of GPA. The patient was referred by Dr. Sommers. 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 Initially presented to an outside special delivery messenger with scleritis and was referred to [facility] [...] had shingles. He was seen by the head of history on Saturday as well and was cleared. He has a follow up with head of history on next Saturday. He is on valtrex [...] is doing well. When he saw the head of history he reports being told that his GPA was quiescent. He works at an [employer] shop and is around a lot of [...] in 06/15. He gets his infusions through [facility]. He remains on the 20 mg [...] AND/OR SOCIAL HISTORY: No family history of special delivery messenger diseases Date of last DEXA: September or October of 2017 and he was told it was normal, but is taking fosamax Location of last DEXA: in [place] Current Outpatient Prescriptions: valACYclovir (VALTREX) 1 gram [...] 74 - 99 mg/dL Final Comment: The [place] Diabetes Association (ADA) provides guidance for cutoff [...] Standards of Medical Care in Diabetes 2016, [place] [employer]. Diabetes Care. 2016.39(Suppl 1). AST [...] 36 - 108 U/L Final Urine: Specific [place], Ur Date Value Ref Range Status 08/30/2017 [...] like patient to have urinalysis with his [facility] labs (cbc, cmp , wsr, crp ) with Dr. Sommers (pt's home special delivery messenger) Patient to follow up at [facility] Rheumatology in September or October 2018 Pending [...] MD CNOV Observed: 02/27/2018 Status: COMPLETED Source: [place] 8:10 AM [facility] REPOSITORY Office Visit (RHEUMN) JAELYN HITCHCOCK ([id number]) 1960 M Date Time Provider Department 02/27/18 [...] positive PR3-cANCA. Initially presented to an outside special delivery messenger with scleritis and [facility] [...] had shingles. He was seen by the head of history on Saturday as well and was cleared. He has a follow up with head of history on next Saturday. He is on valtrex [...] is doing well. When he saw the head of history he reports being told that his GPA [...] in 06/15. He gets his infusions through [facility]. He remains on the 20 mg [...] AND/OR SOCIAL HISTORY: No family history of special delivery messenger diseases Date of last DEXA: September or October of 2017 and he was told it was normal, but is taking fosamax Location of last DEXA: in [place] Current Outpatient Prescriptions: valACYclovir (VALTREX) 1 gram [...] 74 - 99 mg/dL Final Comment: The [place] Diabetes Association (ADA) provides guidance for cutoff [...] Standards of Medical Care in Diabetes 2016, [place] Diabetes [employer]. Diabetes Care. 2016.39(Suppl 1). AST [...] 36 - 108 U/L Final Urine: Specific [place], Ur Date Value Ref Range Status 08/30/2017 [...] his scleritis was improved when he saw [facility] on Saturday02/24/18 Feels the rituximab has been [...] medication Has a follow up appointment with [facility] on Saturday03/03/18 Pt denies other recent infections [...] like patient to have urinalysis with his [facility] labs (cbc, cmp , wsr, crp ) with Dr. Sommers (pt's home special delivery messenger) Patient to follow up at [facility] Rheumatology in September or October 2018 Pending [...] once daily.Disp: Rfl: predniSONE (DELTASONE) 5 mg [id number] mg daily for 1 weeks then cut [...] 01/16/2018 Status: F Source: [place] 1:56 PM [facility] REPOSITORY [facility] Medical Records Department [address] [place] [address] Downtime Report MR#: [id number] Acct: [id number] Name: JAELYN HITCHCOCK Rep #: [id number] : 1960 57 From: Girma Frazier PCP: Teri Au MD Status: REG CLI This patient was seen during an EMR downtime December 30, 2017 - January 06, 2018. This patient may have a combination of paper and electronic documentation or all paper documentation. All documentation is viewable within the e-chart portion of [facility] for each patient visit. COMPREHENSIVE METABOLIC Collected: 01/06/2018 Status: F Source: [place]IL 7:51 AM [facility] REPOSITORY TYPE CODE TESTS RESULT OUT OF [...] 10 Performed By: #### L500.4050, L501.6710 #### [facility] [address] [facility] [place], [address] CRP Collected: 01/06/2018 Status: F Source: [place] 7:51 AM [facility] REPOSITORY TYPE CODE TESTS RESULT OUT OF RANGE REFERENCE UNITS LAB L501.6710 0.0-3.0 mg/L Normal < 2.90 C-REACTIVE PROT Result Comment: C-Reactive Protein (CRP) provides useful information for the diagnosis, therapy and monitoring of inflammatory processes and associated diseases. For the evaluation of Relative Risk for Cardiovascular Disease, a High Sensitivity CRP (HSCRP) should be ordered. Performed By: #### L500.4050, L501.6710 #### [facility] [address] [place], [place], [address] CBC W/DIFF, AUTOMATED Collected: 01/06/2018 Status: F Source: [place] 7:51 AM [facility] REPOSITORY TYPE CODE TESTS RESULT OUT OF [...] 1.90 Performed By: #### L100.0100, L101.9900 #### [facility] [address] [place], [place], [address] ERYTHROCYTE SED RATE Collected: 01/06/2018 Status: F Source: [place] 7:51 AM [facility] REPOSITORY TYPE CODE TESTS RESULT OUT OF RANGE REFERENCE UNITS LAB L102.0000 0-20 mm/hr Normal SED RATE 4 Performed By: #### L100.0100, L101.9900 #### [facility] [place], [address] CBC W/DIFF, AUTOMATED Collected: 11/06/2017 Status: F Source: [place] 7:57 AM [facility] REPOSITORY TYPE CODE TESTS RESULT OUT OF [...] 1.71 Performed By: #### L100.0100, L101.9900 #### [facility] [address] [place], [address] ERYTHROCYTE SED RATE Collected: 11/06/2017 Status: F Source: [place] 7:57 AM [facility] REPOSITORY TYPE CODE TESTS RESULT OUT OF RANGE REFERENCE UNITS LAB L102.0000 0-20 mm/hr Normal SED RATE 3 Performed By: #### L100.0100, L101.9900 #### [facility] [address] [place], [place], [address] COMPREHENSIVE METABOLIC Collected: 11/06/2017 Status: F Source: [facility] 7:57 AM [facility] REPOSITORY TYPE CODE TESTS RESULT OUT OF [...] 9 Performed By: #### L500.4050, L501.6710 #### [facility] [address] [place], [address] CRP Collected: 11/06/2017 Status: F Source: [place] 7:57 AM [facility] REPOSITORY TYPE CODE TESTS RESULT OUT OF RANGE REFERENCE UNITS LAB L501.6710 0.0-3.0 mg/L Normal < 2.90 C-REACTIVE PROT Result Comment: C-Reactive Protein (CRP) provides useful information for the diagnosis, therapy and monitoring of inflammatory processes and associated diseases. For the evaluation of Relative Risk for Cardiovascular Disease, a High Sensitivity CRP (HSCRP) should be ordered. Performed By: #### L500.4050, L501.6710 #### [facility] [address] [place], [address] DEXA BONE DENSITY Observed: 09/26/2017 Status: F Source: [place] STUDY () 8:26 AM [facility] REPOSITORY [facility] Imaging Services [address] [place] [address] Dexa Bone Density Study () MR#: [id number] Acct: [id number] Name: JAELYN HITCHCOCK Rep #: [id number] : 1960 M 57 From: Alejo Landeros MD PCP: Teri Au MD Status: REG CLI Study: Dexa Bone Density Study () Date of Exam: 09/26/17 Exam# [id number] Ordering Dr: Meryl Gross MD STUDY: DUAL [...] Alejo Landeros MD at 8:28 EST Tel [phone], Service support , CC: Teri Au MD; Meryl Gross MD Geological Technical Officer: Signed URINALYSIS, ROUTINE Collected: 09/09/2017 Status: F Source: [place] (DIPSTICK) 8:49 AM [facility] REPOSITORY Order Comment: How was Urine Obtained? [...] ESTERASE Negative Performed By: #### L400.2010 #### [facility] [address] [place], [place], [address] COMPREHENSIVE METABOLIC Collected: 09/09/2017 Status: F Source: [place] PROFIL 8:49 AM [facility] REPOSITORY TYPE CODE TESTS RESULT OUT OF [...] 9 Performed By: #### L500.4050, L501.6710 #### [facility] [address] [place], [place], [address] CRP Collected: 09/09/2017 Status: F Source: [place] 8:49 AM [facility] REPOSITORY TYPE CODE TESTS RESULT OUT OF RANGE REFERENCE UNITS LAB L501.6710 0.0-3.0 mg/L Normal < 2.90 C-REACTIVE PROT Result Comment: C-Reactive Protein (CRP) provides useful information for the diagnosis, therapy and monitoring of inflammatory processes and associated diseases. For the evaluation of Relative Risk for Cardiovascular Disease, a High Sensitivity CRP (HSCRP) should be ordered. Performed By: #### L500.4050, L501.6710 #### [facility] [place], [address] CBC W/DIFF, AUTOMATED Collected: 09/09/2017 Status: C Source: [place] 8:49 AM [facility] REPOSITORY TYPE CODE TESTS RESULT OUT OF [...] November Performed By: #### L100.0100, L101.9900 #### [facility] [address] [place], [place], [address] ERYTHROCYTE SED RATE Collected: 09/09/2017 Status: F Source: [place] 8:49 AM [facility] REPOSITORY TYPE CODE TESTS RESULT OUT OF RANGE REFERENCE UNITS LAB L102.0000 0-20 mm/hr Normal SED RATE 10 Performed By: #### L100.0100, L101.9900 #### [facility] [address] [place], [place], [address] HEPATITIS B SURFACE Collected: 09/09/2017 Status: F Source: [place] AG 8:49 AM [facility] REPOSITORY TYPE CODE TESTS RESULT OUT OF RANGE REFERENCE UNITS LAB L3100.0400 Negative Normal HB Negative SURF AG Performed By: #### L3100.0390, L3100.0460, L3100.0528, L3100.0625, L3400.7000 #### [facility] (refer to report for specific site) refer to report for address and phone number HEPATITIS B CORE AB Collected: 09/09/2017 Status: F Source: [place] TOTAL 8:49 AM [facility] REPOSITORY TYPE CODE TESTS RESULT OUT OF RANGE REFERENCE UNITS LAB L3100.0460 Negative Normal HEP B Negative CORE,TOT Result Comment: Performed at: [address] [id number] Data Lead: Dontae Hess PhD, Phone: [phone] Performed By: #### L3100.0390, L3100.0460, L3100.0528, L3100.0625, L3400.7000 #### [facility] (refer to report for specific site) refer to report for address and phone number HEP B SURFACE Collected: 09/09/2017 Status: F Source: [place] ANTIBODIES 8:49 AM [facility] REPOSITORY TYPE CODE TESTS RESULT OUT OF [...] 09/09/2017 Status: F Source: [place] 8:49 AM [facility] REPOSITORY TYPE CODE TESTS RESULT OUT OF RANGE REFERENCE UNITS LAB L3100.0650 0.0-0.9 s/co ratio Normal HEP C AB <0.1 Result Comment: Negative: < 0.8 Indeterminate: 0.8 - 0.9 Positive: > 0.9 The CDC recommends that a positive HCV antibody result be followed up with a HCV Nucleic Acid Amplification test (922122). Performed By: #### L3100.0390, L3100.0460, L3100.0528, L3100.0625, L3400.7000 #### [facility] (refer to report for specific site) refer to report for address and phone number QUANTIFERON TB-GOLD Collected: 09/09/2017 Status: F Source: [place] 8:49 AM [facility] REPOSITORY TYPE CODE TESTS RESULT OUT OF [...] AND LATERAL Observed: 09/09/2017 Status: F Source: [place] 8:47 AM [facility] REPOSITORY [facility] Imaging Services [address] [place] [address] Chest PA and Lateral MR#: [id number] Acct: [id number] Name: JAELYN HITCHCOCK Shona Rep #: [id number] : 1960 57 From: Alejo Landeros MD PCP: Teri Au MD Status: REG CLI Study: Chest PA and Lateral Date of Exam: 09/09/17 Exam# [id number] Ordering Dr: Meryl Gross MD STUDY: X-RAY [...] Alejo Landeros MD at 10:45 EST Tel [phone], Service support , CC: Teri Au MD; Meryl Gross MD Geological Technical Officer: Signed CBC Collected: 08/30/2017 Status: F Source: [place] 10:09 AM [facility] REPOSITORY TYPE CODE TESTS RESULT OUT [...] CBC, CMP, CRP, VITD, WSR, ANCA #### [facility] [address] [place], [place] [address] COMP METABOLIC PANEL Collected: 08/30/2017 Status: F Source: [place] 10:09 AM [facility] REPOSITORY TYPE CODE TESTS RESULT OUT OF REFERENCE UNITS RANGE LAB TP 6.3-8.0 g/dL Protein, Total 6.8 LAB ALB 3.9-4.9 g/dL Albumin 4.3 LAB CA 8.5-10.2 mg/dL Calcium, Total 9.4 LAB TBIL 0.2-1.3 mg/dL Bilirubin, Total 0.8 LAB ALKP 36-108 U/L Alkaline Phosphatase 84 LAB AST 14-40 U/L AST 35 LAB GLU 74-99 mg/dL Glucose 96 Result Comment: The [place] Diabetes Association (ADA) provides guidance for cutoff [...] Standards of Medical Care in Diabetes 2016, [place] [employer]. Diabetes Care. 2016.39(Suppl 1). LAB [...] CBC, CMP, CRP, VITD, WSR, ANCA #### [facility] [address] [place], [place] [address] C-REACTIVE PROTEIN Collected: 08/30/2017 Status: F Source: [place] 10:09 AM [facility] REPOSITORY TYPE CODE TESTS RESULT OUT OF REFERENCE UNITS RANGE LAB CRP <0.9 mg/dL C-Reactive 0.3 Protein Performed By: #### CBC, CMP, CRP, VITD, WSR, ANCA #### [place] [address] VITAMIN D 25 HYDROXY Collected: 08/30/2017 Status: F Source: [place] 10:09 AM [facility] REPOSITORY TYPE CODE TESTS RESULT OUT OF REFERENCE UNITS RANGE LAB VITD 31.0-80.0 ng/mL Vitamin D 25 40.3 Hydroxy Result Comment: Classification of 25 [place] Vitamin D status: Insufficiency/Moderate Deficiency: < or = 30 ng/mL Sufficiency/Optimal Levels: 31 to 80 ng/mL Toxicity: > 100 ng/mL Test performed by chemiluminescent immunoassay. Performed By: #### CBC, CMP, CRP, VITD, WSR, ANCA #### [place] [address] SED RATE WESTERGREN Collected: 08/30/2017 Status: F Source: [place] 10:09 AM [facility] REPOSITORY TYPE CODE TESTS RESULT OUT OF REFERENCE UNITS RANGE LAB WSR 0-15 mm/hr Sed Rate Westergren 8 Performed By: #### CBC, CMP, CRP, VITD, WSR, ANCA #### [place] [address] ANTI-NEUTRO.CYTO.AB Collected: Status: F Source: [place] 08/30/2017 10:09 AM [facility] REPOSITORY TYPE CODE TESTS RESULT OUT [...] CBC, CMP, CRP, VITD, WSR, ANCA #### [place] [id number] URINALYSIS Collected: 08/30/2017 Status: F Source: [place] 10:06 AM [facility] REPOSITORY TYPE CODE TESTS RESULT OUT OF RANGE REFERENCE UNITS LAB UCOL Yellow Color Yellow LAB [facility] Clear Clarity Clear LAB UGLUC Negative mg/dL Glucose, Urine Negative LAB UBIL Negative Bilirubin, Urine Negative LAB UKET Negative Ketones, Abnormal Urine Trace Alert LAB USPG 1.005-1.030 Specific [place], Ur 1.013 LAB UHGB Negative Hemoglobin/Blood, Negative Ur LAB UPH 4.5-8.0 pH 6.0 LAB UPROT Negative mg/dL Protein, Urine Negative LAB UUROB Normal Urobilinogen Normal LAB UNITR Negative Nitrites Negative LAB ULKEST Negative Leukest Negative LAB UCOM Comments SEE COMMENT Result Comment: Microscopic not warranted LAB UMCOM Urine SEE Alexander Comment COMMENT Result Comment: N/A Performed By: #### UA #### [facility] [address] [place], [place] [address] PROGRESS Observed: 08/30/2017 Status: COMPLETED Source: [place] 9:08 AM [facility] REPOSITORY HNO ID: [id number] Author: Duane Anguiano Service: (none) Author Type: Physician Type: Progress Notes Filed: 08/30/2017 1:59 PM Note Text: Consultation requested by for an opinion regarding scleritis . My final recommendations will be communicated back to the requesting physician by way of shared medical record or letter via US mail Referring provider: PCP: MD Dr Meryl Arellano [phone] Roman ophthalmology HPI: February 2016 diagnosed [...] Cancer, Thyroid Disease, Transfusions and Rash Allergies: Yosef [Brimonidine-Timolol] Current Outpatient Prescriptions: [START ON 09/05/2017] [...] encounter diagnosis) (J32.8) Other chronic sinusitis (Z79.52) care home systemic steroid user (H15.001) Scleritis of right eye (Z79.899) High risk medication use Mr. 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 He also had some blood [...] Follow up with me in 6 months Duane Morrissey MD ALLERGIES ALLERGIES DATE TYPE / CODE NAME / CODE REACTION SEVERITY SOURCE 12/09/2017 Drug No Known Unknown [facility] Allergy/416 Allergies/F0 Hospital 209854(SNOM [id number](RXN Repository ED CT) ORM) 07/16/2017 DRUG/[id number] BRIMONIDINE- INTOLERANCE [facility] 003(SNOMED TIMOLOL [facility]) Repository ENCOUNTERS ENCOUNTERS ADMIT/DISCHARGE ACCOUNT ADMITTING ENCOUNTER LOCATION SOURCE NUMBER CLASS 07/14/2018 [id number] [facility] ing:MEDOUTP Repository 06/30/2018 [id number] Ambulatory [facility] Hospital ing:MEDOUTP Repository 06/06/2018 [id number] [facility] ing:MTLAB Repository 03/14/2018 [id number] Ambulatory [facility] Hospital ing:MTLAB Repository 02/27/2018/02/28/[id number] Repository 01/06/2018 [id number] [facility] [facility] ing:MTLAB Repository 12/09/2017 [id number] [facility] 11/25/2017 [id number] [facility]MEDOUTP Repository 11/12/2017 [id number] Ambulatory [facility] Hospital ing:MEDOUTP Repository 11/06/2017 [id number] [facility] 09/26/2017 [id number] Ambulatory [facility] Hospital ing:BD Repository 09/09/2017 [id number] Ambulatory [facility] Hospital ing:MTLAB Repository 08/30/2017 [id number] Ambulatory [facility] Repository 08/30/2017/09/02/19 [id number] Ambulatory [address] Repository PAYERS PAYERS ENCOUNTER GUARANTOR PAYER SUBSCRIBER SOURCE 07/14/2018 JAELYN W Primary JAELYN W [place] [id number] S Insurance:ANTHEMPolic BURKEYDOB: Community ZULEMA y [place]: [id number] [id number] Repository [address]Jbp: (330) Date:9860-15-62JY [phone] () [id number] [place] [address] 15643DU: 07/14/2018 Secondary NOT GIVENUNK Rudy Insurance:SELF PAY [facility] Number: Effective Repository Date:2018-06-30 06/30/2018 JAELYN W Primary JAELYN W [place] [id number] S Insurance:ANTHEMPolic BURKEYDOB: [facility] ZULEMA y Number: [id number] [id number] Repository 50433Lgy: (330) Date:2800-91-24KK [phone] () [address]49[address]TWBOOFB, [place] [address]IC: 06/30/2018 Secondary NOT GIVENUNK [place] Insurance:SELF PAY [facility] Number: Effective Repository Date:2018-06-27 06/06/2018 JAELYN W Primary JAELYN W [place] [id number] S Insurance:ANTHEMPolic BURKEYDOB: [facility] ZULEMA y Number: [id number] [id number] Repository 36[address]Ntg: (330) Date:9360-66-85TP [phone] () [id number] [place] [address]YI: 06/06/2018 Secondary NOT GIVENUNK [place] Insurance:SELF PAY [facility] Number: Effective Repository Date:2018-06-06 03/14/2018 JAELYN W Primary JAELYN W [place] [id number] S Insurance:ANTHEMPolic BURKEYDOB: [facility] ZULEMA y Number: [id number], [place] [id number] Repository [address]Zqa: (330) Date:4846-42-25GY [phone] () [id number] [place] [address]JH: 03/14/2018 Secondary NOT GIVENUNK [place] Insurance:SELF PAY [facility] Effective Repository Date:2018-03-14 01/06/2018 Jaelyn [id number] Primary Jaelyn BurkeyDOB: Rudy S Zulema Insurance:ANTHEMPolic [id number] [facility] [place] Number: [facility] [id number]: (330) [id number] Repository [phone] () Date:3401-54-60VF [address]JPHMUBA, [place] [address]JR: 01/06/2018 Secondary NOT GIVENUNK [place] Insurance:SELF PAY [facility] Number: Effective Repository Date:2018-01-06 12/09/2017 Jaelyn [id number] Primary Jaelyn BurkeyDOB: Rudy S [place]ule[place] Insurance:ANTHEMPolic [id number] [facility] [place] Number: Hospital [address]Iuq: (330) [id number] Repository [phone] () Date:7262-05-71OS [address]TFIVFKR, [place] [address]AJ: 12/09/2017 Secondary NOT GIVENUNK [place] Insurance:SELF PAY [facility] Number: Effective Repository Date:2017-11-25 11/25/2017 Jaelyn [id number] Primary Jaelyn BurkeyDOB: [place] Insurance:ANTHEMPolic [id number] [facility] [place] Number: Hospital [id number]: (330) [id number] Repository [phone] () Date:9538-54-70RP [address]QUCYCNY, [place] [address]XP: 11/25/2017 Secondary NOT GIVENUNK [place] Insurance:SELF PAY [facility] Number: Effective Repository Date:2017-11-13 11/12/2017 Jaelyn [id number] Primary Jaelyn BurkeyDOB: Rudy S [place] Insurance:ANTHEMPolic [id number] [facility] Number: Hospital [id number]: (330) [id number] Repository [phone] (HP) Date:3676-45-95GF [address]EZHRWEL, [place] [address]MM: 11/12/2017 Secondary NOT GIVENUNK [place] Insurance:SELF PAY [facility] Number: Effective Repository Date:2017-11-04 11/06/2017 Jaelyn [id number] Primary Jaelyn BurkeyDOB: [place] S [place] Insurance:ANTHEMPolic [id number] [place], [place] y Number: Hospital [address]Ihi: (330) [id number] Repository [phone] () Date:9844-84-99IR [address]SLXJPSX, [place] [address]DR: 11/06/2017 Secondary NOT GIVENUNK [place] Insurance:SELF PAY [facility] Number: Effective Repository Date:2017-11-06 09/26/2017 Jaelyn [id number] Primary Jaelyn BurkeyDOB: [place] Insurance:ANTHEMPolic [id number] [place] y Number: Hospital [id number]: (330) [id number] Repository [phone] () Date:5535-51-00MY [address]GCJQFAJ, [place] [address]EL: 09/26/2017 Secondary NOT GIVENUNK [place] Insurance:SELF PAY [facility] Number: Effective Repository Date:2017-09-10 09/09/2017 Jaelyn [id number] Primary Jaelyn BurkeyDOB: [place] Insurance:ANTHEMPolic [id number] [place] y Number: Hospital [id number]: (330) [id number] Repository [phone] () Date:9267-36-97DC [address]YFWQIEB, [place] [address]TX: 09/09/2017 Secondary NOT GIVENUNK [place] Insurance:SELF PAY [facility] Number: Effective Repository Date:2017-09-09
== END ==
PROVIDERS: Family Provider Family Medicine; PCP Family Medicine; Referring Provider Internal Medicine Rheumatology; Visit Provider Internal Medicine Rheumatology
DX: M31.30 Wegener's granulomatosis without renal involvement (principal)
CPT/HCPCS: 96365; 96366 ×2; J7040; J7050; J9310

== ENCOUNTER → 2018-09-03 08:44 | Outpatient (CLI) | payer BC, SELFPAY ==
[2018-07-14 09:37] VITALS: BMI 34.4
[2018-09-03 11:02] LABS: Absolute Lymphocyte Count 0.99 X10^3/ul (0.83-4.51); Absolute Neutrophil Count 5.9 X10^3/uL (2.0-7.7); Basophil# 0.03 X10^3/uL; Basophil% 0.4 % (0-1); Eosinophil# 0.11 X10^3/uL; Eosinophils% 1.4 % (0-5); Erythrocyte Sedimentation Rate 9 mm/hr (0-20); Hematocrit 42.3 % (40-54); Hemoglobin 13.7 g/dl (13.0-16.5); Lymphocyte # 0.99 X10^3/ul (4.0); Lymphocyte % 12.6 % (19-41); Mean Corp Hgb Conc 32.4 g/gl (32-36); Mean Corpuscular Hgb 31.3 pg (27.0-32.0); Mean Corpuscular Volume 96.6 fL (80-94); Mean Platelet Vol. 9.5 fl (6.2-12.0); Monocyte# 0.81 X10^3/uL; Monocyte% 10.3 % (0-10); Neutrophil # 5.87 X10^3/uL (2.7-7.7); Neutrophil % 74.7 % (47-70); POSITIVE COUNT NO; POSITIVE DIFFERENTIAL NO; POSITIVE MORPHOLOGY NO; Platelet Count 321 K/mm3 (150-450); RBC Distribution Width CV 15.8 % (11.6-14.6); RBC Distribution Width SD 54.9 fl (35.1-43.9); Red Blood Count 4.38 M/mm3 (4.6-6.2); White Blood Count 7.9 K/mm3 (4.4-11.0)
[2018-09-03 11:25] LABS: ALB/GLOB Ratio 1.2 RATIO (0.9-2.4); AST(SGOT) 22 U/L (15-37); Alanine Aminotransfer ALT/SGPT 39 U/L (16-61); Albumin, Serum 3.9 g/dL (3.2-5.0); Alkaline Phosphatase 95 U/L (45-117); Anion Gap 10 (5-15); BUN 14 mg/dL (7-18); BUN/Creat Ratio 15.1 RATIO (10-20); CRP < 2.90 mg/L (0.0-3.0); Calcium,Total 9.3 mg/dL (8.5-10.1); Chloride 104 mmol/L (98-107); Creatinine, Serum 0.93 mg/dL (0.70-1.30); EST Glomerular Filtration Rate 89 mL/min (>60); Est Glom Filt Rate - Afr Amer 108 mL/min (>60); Globulin 3.3 g/dL (2.2-4.2); Glucose 95 mg/dL (74-106); Potassium 4.3 mmol/L (3.5-5.1); Protein, Total 7.2 g/dL (6.4-8.2); Sodium Level 139 mmol/L (136-145)
== END ==
PROVIDERS: Family Provider Family Medicine; PCP Family Medicine; Referring Provider Internal Medicine Rheumatology; Visit Provider Internal Medicine Rheumatology
DX: M31.30 Wegener's granulomatosis without renal involvement (principal); H20.021 Recurrent acute iridocyclitis, right eye; H15.011 Anterior scleritis, right eye; Z79.899 Other long term (current) drug therapy; M21.40 Flat foot [pes planus] (acquired), unspecified foot
CPT/HCPCS: 36415; 80053; 85025; 85652; 86140

== ENCOUNTER → 2018-11-21 07:21 | Outpatient (CLI) | payer BC, SELFPAY ==
[2018-07-14 09:37] VITALS: BMI 34.4
[2018-11-21 10:10] LABS: Erythrocyte Sedimentation Rate 11 mm/hr (0-20)
[2018-11-21 10:13] LABS: Absolute Neutrophil Count 5.5 X10^3/uL (2.0-7.7); Basophil# 0.02 X10^3/uL; Basophil% 0.3 % (0-1); Eosinophil# 0.13 X10^3/uL; Eosinophils% 1.7 % (0-5); Hematocrit 40.6 % (40-54); Hemoglobin 13.4 g/dl (13.0-16.5); Lymphocyte % 14.7 % (19-41); Mean Corpuscular Hgb 31.4 pg (27.0-32.0); Mean Corpuscular Volume 95.1 fL (80-94); Mean Platelet Vol. 9.7 fl (6.2-12.0); Monocyte# 0.75 X10^3/uL; Neutrophil # 5.48 X10^3/uL (2.7-7.7); Neutrophil % 73.2 % (47-70); Platelet Count 300 K/mm3 (150-450); RBC Distribution Width CV 15.6 % (11.6-14.6); RBC Distribution Width SD 52.6 fl (35.1-43.9); Red Blood Count 4.27 M/mm3 (4.6-6.2); White Blood Count 7.5 K/mm3 (4.4-11.0)
[2018-11-21 10:14] LABS: POSITIVE COUNT NO; POSITIVE DIFFERENTIAL NO; POSITIVE MORPHOLOGY NO
[2018-11-21 11:16] LABS: ALB/GLOB Ratio 1.3 RATIO (0.9-2.4); AST(SGOT) 29 U/L (15-37); Alanine Aminotransfer ALT/SGPT 39 U/L (16-61); Albumin, Serum 3.8 g/dL (3.2-5.0); Alkaline Phosphatase 94 U/L (45-117); Anion Gap 8 (5-15); BUN 16 mg/dL (7-18); BUN/Creat Ratio 17.6 RATIO (10-20); CRP < 2.90 mg/L (0.0-3.0); Chloride 107 mmol/L (98-107); Creatinine, Serum 0.91 mg/dL (0.70-1.30); EST Glomerular Filtration Rate 91 mL/min (>60); Est Glom Filt Rate - Afr Amer 110 mL/min (>60); Glucose 91 mg/dL (74-106); Potassium 3.7 mmol/L (3.5-5.1); Protein, Total 6.8 g/dL (6.4-8.2); Sodium Level 141 mmol/L (136-145)
== END ==
PROVIDERS: Family Provider Family Medicine; PCP Family Medicine; Referring Provider Internal Medicine Rheumatology; Visit Provider Internal Medicine Rheumatology
DX: M31.30 Wegener's granulomatosis without renal involvement (principal); H20.021 Recurrent acute iridocyclitis, right eye; H15.011 Anterior scleritis, right eye; M21.40 Flat foot [pes planus] (acquired), unspecified foot; Z79.899 Other long term (current) drug therapy
CPT/HCPCS: 36415; 80053; 85025; 85652; 86140

== ENCOUNTER → 2019-02-18 07:07 | Outpatient (CLI) | payer BC, SELFPAY ==
[2018-07-14 09:37] VITALS: BMI 34.4
[2019-02-18 10:31] LABS: Absolute Lymphocyte Count 0.89 X10^3/uL (0.83-4.51); Absolute Neutrophil Count 2.8 X10^3/uL (2.0-7.7); Basophil# 0.04 X10^3/uL; Basophil% 0.9 % (0-1); Eosinophil# 0.11 X10^3/uL; Eosinophils% 2.5 % (0-5); Erythrocyte Sedimentation Rate 15 mm/hr (0-20); Hemoglobin 13.1 g/dL (13.0-16.5); Lymphocyte # 0.89 X10^3/ul (4.0); Lymphocyte % 19.9 % (19-41); Mean Corp Hgb Conc 33.6 g/dL (32-36); Mean Corpuscular Hgb 31.7 pg (27.0-32.0); Mean Corpuscular Volume 94.4 fL (80-94); Mean Platelet Vol. 9.7 fl (6.2-12.0); Monocyte# 0.65 X10^3/uL; Monocyte% 14.5 % (0-10); NRBC Flagged by Analyzer 0 % (0-5); Neutrophil # 2.78 X10^3/uL (2.7-7.7); Platelet Count 315 K/mm3 (150-450); RBC Distribution Width CV 14.3 % (11.6-14.6); RBC Distribution Width SD 48.7 fl (35.1-43.9); Red Blood Count 4.13 M/mm3 (4.6-6.2); White Blood Count 4.5 K/mm3 (4.4-11.0)
[2019-02-18 10:52] LABS: ALB/GLOB Ratio 1.2 RATIO (0.9-2.4); AST(SGOT) 26 U/L (15-37); Alanine Aminotransfer ALT/SGPT 31 U/L (16-61); Albumin, Serum 3.5 g/dL (3.2-5.0); Alkaline Phosphatase 100 U/L (45-117); Anion Gap 10 (5-15); BUN 14 mg/dL (7-18); BUN/Creat Ratio 17.5 RATIO (10-20); CRP 3.22 mg/L (0.0-3.0); Calcium,Total 9.2 mg/dL (8.5-10.1); Chloride 107 mmol/L (98-107); EST Glomerular Filtration Rate 106 mL/min (>60); Est Glom Filt Rate - Afr Amer 128 mL/min (>60); Glucose 94 mg/dL (74-106); Potassium 4.1 mmol/L (3.5-5.1); Protein, Total 6.5 g/dL (6.4-8.2); Sodium Level 141 mmol/L (136-145)
== END ==
PROVIDERS: Family Provider Family Medicine; PCP Family Medicine; Referring Provider Internal Medicine Rheumatology; Visit Provider Internal Medicine Rheumatology
DX: M31.30 Wegener's granulomatosis without renal involvement (principal); Z79.899 Other long term (current) drug therapy; H20.021 Recurrent acute iridocyclitis, right eye; H15.011 Anterior scleritis, right eye; M21.40 Flat foot [pes planus] (acquired), unspecified foot
CPT/HCPCS: 36415; 80053; 85025; 85652; 86140

== ENCOUNTER → 2019-05-20 07:01 | Outpatient (CLI) | payer BC, SELFPAY ==
[2018-07-14 09:37] VITALS: BMI 34.4
[2019-05-20 10:12] LABS: Absolute Lymphocyte Count 1.38 X10^3/uL (0.83-4.51); Absolute Neutrophil Count 3.5 X10^3/uL (2.0-7.7); Basophil# 0.07 X10^3/uL; Basophil% 1.2 % (0-1); Eosinophil# 0.15 X10^3/uL; Eosinophils% 2.6 % (0-5); Hematocrit 40.9 % (40-54); Hemoglobin 13.5 g/dL (13.0-16.5); Lymphocyte # 1.38 X10^3/ul (4.0); Lymphocyte % 24.2 % (19-41); Mean Corpuscular Hgb 30.5 pg (27.0-32.0); Mean Corpuscular Volume 92.5 fL (80-94); Mean Platelet Vol. 9.8 fl (6.2-12.0); Monocyte# 0.62 X10^3/uL; Monocyte% 10.9 % (0-10); NRBC Flagged by Analyzer 0 % (0-5); Neutrophil # 3.47 X10^3/uL (2.7-7.7); Neutrophil % 60.9 % (47-70); Platelet Count 326 K/mm3 (150-450); RBC Distribution Width CV 15.8 % (11.6-14.6); RBC Distribution Width SD 52.9 fl (35.1-43.9); Red Blood Count 4.42 M/mm3 (4.6-6.2); White Blood Count 5.7 K/mm3 (4.4-11.0)
[2019-05-20 10:14] LABS: Erythrocyte Sedimentation Rate 8 mm/hr (0-20)
[2019-05-20 10:35] LABS: ALB/GLOB Ratio 1.2 RATIO (0.9-2.4); AST(SGOT) 21 U/L (15-37); Alanine Aminotransfer ALT/SGPT 29 U/L (16-61); Albumin, Serum 3.7 g/dL (3.2-5.0); Alkaline Phosphatase 119 U/L (45-117); Anion Gap 6 (5-15); BUN 15 mg/dL (7-18); BUN/Creat Ratio 18.7 RATIO (10-20); CRP < 2.90 mg/L (0.0-3.0); Chloride 106 mmol/L (98-107); EST Glomerular Filtration Rate 105 mL/min (>60); Est Glom Filt Rate - Afr Amer 127 mL/min (>60); Globulin 3.2 g/dL (2.2-4.2); Glucose 98 mg/dL (74-106); Potassium 4.1 mmol/L (3.5-5.1); Protein, Total 6.9 g/dL (6.4-8.2); Sodium Level 139 mmol/L (136-145)
== END ==
PROVIDERS: Family Provider Family Medicine; PCP Family Medicine; Referring Provider Internal Medicine Rheumatology; Visit Provider Internal Medicine Rheumatology
DX: M31.30 Wegener's granulomatosis without renal involvement (principal); Z79.899 Other long term (current) drug therapy; H20.021 Recurrent acute iridocyclitis, right eye; H15.011 Anterior scleritis, right eye; M21.40 Flat foot [pes planus] (acquired), unspecified foot
CPT/HCPCS: 36415; 80053; 85025; 85652; 86140

== ENCOUNTER → 2019-08-17 07:27 | Outpatient (CLI) | payer BC, SELFPAY ==
[2018-07-14 09:37] VITALS: BMI 34.4
[2019-08-17 10:29] LABS: Absolute Lymphocyte Count 1.34 X10^3/uL (0.83-4.51); Absolute Neutrophil Count 3.9 X10^3/uL (2.0-7.7); Basophil# 0.07 X10^3/uL; Basophil% 1.2 % (0-1); Eosinophil# 0.14 X10^3/uL; Eosinophils% 2.4 % (0-5); Hematocrit 40.8 % (40-54); Hemoglobin 13.5 g/dL (13.0-16.5); Lymphocyte # 1.34 X10^3/ul (4.0); Lymphocyte % 22.6 % (19-41); Mean Corp Hgb Conc 33.1 g/dL (32-36); Mean Corpuscular Hgb 30.8 pg (27.0-32.0); Mean Corpuscular Volume 93.2 fL (80-94); Mean Platelet Vol. 9.9 fl (6.2-12.0); Monocyte# 0.46 X10^3/uL; Monocyte% 7.7 % (0-10); NRBC Flagged by Analyzer 0 % (0-5); Neutrophil # 3.91 X10^3/uL (2.7-7.7); Neutrophil % 65.8 % (47-70); Platelet Count 328 K/mm3 (150-450); RBC Distribution Width CV 14.6 % (11.6-14.6); RBC Distribution Width SD 49.8 fl (35.1-43.9); Red Blood Count 4.38 M/mm3 (4.6-6.2); White Blood Count 5.9 K/mm3 (4.4-11.0)
[2019-08-17 10:30] LABS: Color, Urine Yellow (Yellow); Glucose, Dipstick Normal (Normal); Ketone-Dipstick Negative (Negative); Leukocyte Esterase-Dipstick Negative /ul (Negative); Nitrite-Dipstick Negative (Negative); Occult Blood-Urine Negative /ul (Negative); Protein-Dipstick Negative (Negative); Specific Gravity, Urine 1.005 (1.002-1.030); Urine Bilirubin Dipstick Negative (Negative); Urine Clarity Clear (Clear); Urine Urobilinogen Normal (Normal); Urine pH 6.5 (5.0 - 8.0)
[2019-08-17 10:42] LABS: Erythrocyte Sedimentation Rate 17 mm/hr (0-20)
[2019-08-17 11:06] LABS: Protein, Urine (Random) < 6.0 mg/dL (<11.9)
[2019-08-17 11:12] LABS: ALB/GLOB Ratio 1.1 RATIO (0.9-2.4); AST(SGOT) 23 U/L (15-37); Alanine Aminotransfer ALT/SGPT 29 U/L (16-61); Albumin, Serum 3.7 g/dL (3.2-5.0); Alkaline Phosphatase 111 U/L (45-117); Anion Gap 6 (5-15); BUN 12 mg/dL (7-18); BUN/Creat Ratio 14.3 RATIO (10-20); CRP < 2.90 mg/L (0.0-3.0); Calcium,Total 9.2 mg/dL (8.5-10.1); Chloride 105 mmol/L (98-107); Creatinine, Serum 0.84 mg/dL (0.70-1.30); EST Glomerular Filtration Rate 99 mL/min (>60); Est Glom Filt Rate - Afr Amer 120 mL/min (>60); Globulin 3.3 g/dL (2.2-4.2); Glucose 90 mg/dL (74-106); Potassium 3.9 mmol/L (3.5-5.1); Sodium Level 136 mmol/L (136-145)
== END ==
PROVIDERS: PCP Family Medicine; Referring Provider Internal Medicine Rheumatology; Visit Provider Internal Medicine Rheumatology
DX: M31.30 Wegener's granulomatosis without renal involvement (principal); Z79.899 Other long term (current) drug therapy; H20.021 Recurrent acute iridocyclitis, right eye; H15.011 Anterior scleritis, right eye; M21.40 Flat foot [pes planus] (acquired), unspecified foot
CPT/HCPCS: 36415; 80053; 81002; 82570; 84156; 85025; 85652; 86140

== ENCOUNTER → 2019-12-14 07:25 | Outpatient (CLI) | payer BC, SELFPAY ==
[2018-07-14 09:37] VITALS: BMI 34.4
[2019-12-14 10:10] LABS: Color, Urine Yellow (Yellow); Glucose, Dipstick Normal (Normal); Ketone-Dipstick Negative (Negative); Leukocyte Esterase-Dipstick Negative /ul (Negative); Nitrite-Dipstick Negative (Negative); Occult Blood-Urine Negative /ul (Negative); Protein-Dipstick Negative (Negative); Urine Bilirubin Dipstick Negative (Negative); Urine Clarity Sl. Cloudy (Clear); Urine Urobilinogen Normal (Normal)
[2019-12-14 10:20] LABS: Erythrocyte Sedimentation Rate 10 mm/hr (0-20)
[2019-12-14 10:21] LABS: ALB/GLOB Ratio 1.1 RATIO (0.9-2.4); AST(SGOT) 34 U/L (15-37); Alanine Aminotransfer ALT/SGPT 53 U/L (16-61); Albumin, Serum 3.7 g/dL (3.2-5.0); Alkaline Phosphatase 111 U/L (45-117); Anion Gap 7 (5-15); BUN 19 mg/dL (7-18); BUN/Creat Ratio 24.8 RATIO (10-20); CRP < 2.90 mg/L (0.0-3.0); Calcium,Total 8.9 mg/dL (8.5-10.1); Chloride 104 mmol/L (98-107); Creatinine, Serum 0.76 mg/dL (0.70-1.30); EST Glomerular Filtration Rate 111 mL/min (>60); Est Glom Filt Rate - Afr Amer 134 mL/min (>60); Globulin 3.4 g/dL (2.2-4.2); Glucose 108 mg/dL (74-106); Protein, Total 7.1 g/dL (6.4-8.2); Protein, Urine (Random) < 6.0 mg/dL (<11.9); Sodium Level 136 mmol/L (136-145)
[2019-12-14 10:25] LABS: Absolute Neutrophil Count 3.3 X10^3/uL (2.0-7.7); Basophil# 0.05 X10^3/uL; Basophil% 0.9 % (0-1); Eosinophil# 0.16 X10^3/uL; Eosinophils% 2.7 % (0-5); Hematocrit 40.3 % (40-54); Hemoglobin 13.7 g/dL (13.0-16.5); Lymphocyte % 30.9 % (19-41); Mean Corpuscular Hgb 31.6 pg (27.0-32.0); Mean Corpuscular Volume 93.1 fL (80-94); Monocyte# 0.55 X10^3/uL; Monocyte% 9.4 % (0-10); NRBC Flagged by Analyzer 0 % (0-5); Neutrophil # 3.25 X10^3/uL (2.7-7.7); Neutrophil % 55.8 % (47-70); Platelet Count 304 K/mm3 (150-450); RBC Distribution Width CV 14.6 % (11.6-14.6); RBC Distribution Width SD 49.4 fl (35.1-43.9); Red Blood Count 4.33 M/mm3 (4.6-6.2); White Blood Count 5.8 K/mm3 (4.4-11.0)
== END ==
PROVIDERS: PCP Family Medicine; Referring Provider Internal Medicine Rheumatology; Visit Provider Internal Medicine Rheumatology
DX: M31.30 Wegener's granulomatosis without renal involvement (principal); Z79.899 Other long term (current) drug therapy; H20.021 Recurrent acute iridocyclitis, right eye; H15.011 Anterior scleritis, right eye; M21.40 Flat foot [pes planus] (acquired), unspecified foot
CPT/HCPCS: 36415; 80053; 81002; 82570; 84156; 85025; 85652; 86140

== ENCOUNTER → 2020-03-15 07:02 | Outpatient (CLI) | payer BC, SELFPAY ==
[2018-07-14 09:37] VITALS: BMI 34.4
[2020-03-15 10:16] LABS: Absolute Lymphocyte Count 1.89 X10^3/uL (0.83-4.51); Absolute Neutrophil Count 5.6 X10^3/uL (2.0-7.7); Basophil# 0.09 X10^3/uL; Basophil% 1.1 % (0-1); Eosinophil# 0.18 X10^3/uL; Eosinophils% 2.1 % (0-5); Erythrocyte Sedimentation Rate 5 mm/hr (0-20); Hematocrit 40.3 % (40-54); Hemoglobin 13.3 g/dL (13.0-16.5); Lymphocyte # 1.89 X10^3/ul (4.0); Lymphocyte % 22.2 % (19-41); Mean Corpuscular Hgb 31.6 pg (27.0-32.0); Mean Corpuscular Volume 95.7 fL (80-94); Mean Platelet Vol. 9.9 fl (6.2-12.0); Monocyte# 0.75 X10^3/uL; Monocyte% 8.8 % (0-10); NRBC Flagged by Analyzer 0 % (0-5); Neutrophil # 5.56 X10^3/uL (2.7-7.7); Neutrophil % 65.4 % (47-70); Platelet Count 310 K/mm3 (150-450); RBC Distribution Width CV 14.5 % (11.6-14.6); RBC Distribution Width SD 50.4 fl (35.1-43.9); Red Blood Count 4.21 M/mm3 (4.6-6.2); White Blood Count 8.5 K/mm3 (4.4-11.0)
[2020-03-15 10:22] LABS: Protein, Urine (Random) < 6.0 mg/dL (<11.9); Protein:Creat Ratio 144 mg/g CRE (0-200)
[2020-03-15 10:28] LABS: Color, Urine Straw (Yellow); Glucose, Dipstick Normal (Normal); Ketone-Dipstick Negative (Negative); Leukocyte Esterase-Dipstick Negative /ul (Negative); Nitrite-Dipstick Negative (Negative); Occult Blood-Urine Negative /ul (Negative); Protein-Dipstick Negative (Negative); Urine Bilirubin Dipstick Negative (Negative); Urine Clarity Clear (Clear); Urine Urobilinogen Normal (Normal); Urine pH 6.5 (5.0 - 8.0)
[2020-03-15 10:58] LABS: ALB/GLOB Ratio 1.1 RATIO (0.9-2.4); AST(SGOT) 25 U/L (15-37); Alanine Aminotransfer ALT/SGPT 38 U/L (16-61); Albumin, Serum 3.8 g/dL (3.2-5.0); Alkaline Phosphatase 102 U/L (45-117); Anion Gap 6 (5-15); BUN 22 mg/dL (7-18); BUN/Creat Ratio 23.4 RATIO (10-20); CRP < 2.90 mg/L (0.0-3.0); Calcium,Total 8.7 mg/dL (8.5-10.1); Chloride 103 mmol/L (98-107); Creatinine, Serum 0.94 mg/dL (0.70-1.30); EST Glomerular Filtration Rate 87 mL/min (>60); Est Glom Filt Rate - Afr Amer 106 mL/min (>60); Globulin 3.5 g/dL (2.2-4.2); Glucose 105 mg/dL (74-106); Potassium 4.1 mmol/L (3.5-5.1); Protein, Total 7.3 g/dL (6.4-8.2); Sodium Level 135 mmol/L (136-145)
== END ==
PROVIDERS: PCP Family Medicine; Referring Provider Internal Medicine Rheumatology; Visit Provider Internal Medicine Rheumatology
DX: M31.30 Wegener's granulomatosis without renal involvement (principal); Z79.899 Other long term (current) drug therapy; H20.021 Recurrent acute iridocyclitis, right eye; H15.011 Anterior scleritis, right eye; M21.40 Flat foot [pes planus] (acquired), unspecified foot
CPT/HCPCS: 36415; 80053; 81002; 82570; 84156; 85025; 85652; 86140

== ENCOUNTER → 2020-06-06 07:08 | Outpatient (CLI) | payer BC, SELFPAY ==
[2018-07-14 09:37] VITALS: BMI 34.4
[2020-06-06 10:24] LABS: Erythrocyte Sedimentation Rate 9 mm/hr (0-20)
[2020-06-06 10:25] LABS: Absolute Lymphocyte Count 1.18 X10^3/uL (0.83-4.51); Absolute Neutrophil Count 3.6 X10^3/uL (2.0-7.7); Basophil# 0.06 X10^3/uL; Basophil% 1.1 % (0-1); Eosinophil# 0.14 X10^3/uL; Eosinophils% 2.5 % (0-5); Hemoglobin 14.5 g/dL (13.0-16.5); Lymphocyte # 1.18 X10^3/ul (4.0); Lymphocyte % 21.4 % (19-41); Mean Corpuscular Hgb 31.1 pg (27.0-32.0); Mean Corpuscular Volume 94.4 fL (80-94); Mean Platelet Vol. 9.7 fl (6.2-12.0); Monocyte# 0.54 X10^3/uL; Monocyte% 9.8 % (0-10); NRBC Flagged by Analyzer 0 % (0-5); Neutrophil # 3.59 X10^3/uL (2.7-7.7); Platelet Count 328 K/mm3 (150-450); RBC Distribution Width CV 14.2 % (11.6-14.6); RBC Distribution Width SD 48.9 fl (35.1-43.9); Red Blood Count 4.66 M/mm3 (4.6-6.2); White Blood Count 5.5 K/mm3 (4.4-11.0)
[2020-06-06 10:27] LABS: Protein, Urine (Random) < 6.0 mg/dL (<11.9)
[2020-06-06 10:29] LABS: Color, Urine Yellow (Yellow); Glucose, Dipstick Normal (Normal); Ketone-Dipstick Negative (Negative); Leukocyte Esterase-Dipstick Negative /ul (Negative); Nitrite-Dipstick Negative (Negative); Occult Blood-Urine Negative /ul (Negative); Protein-Dipstick Negative (Negative); Specific Gravity, Urine 1.005 (1.002-1.030); Urine Bilirubin Dipstick Negative (Negative); Urine Clarity Clear (Clear); Urine Urobilinogen Normal (Normal)
[2020-06-06 10:37] LABS: ALB/GLOB Ratio 1.1 RATIO (0.9-2.4); AST(SGOT) 24 U/L (15-37); Alanine Aminotransfer ALT/SGPT 43 U/L (16-61); Albumin, Serum 3.8 g/dL (3.2-5.0); Alkaline Phosphatase 110 U/L (45-117); Anion Gap 7 (5-15); BUN 16 mg/dL (7-18); BUN/Creat Ratio 21.5 RATIO (10-20); CRP < 2.90 mg/L (0.0-3.0); Calcium,Total 8.8 mg/dL (8.5-10.1); Chloride 104 mmol/L (98-107); Creatinine, Serum 0.74 mg/dL (0.70-1.30); EST Glomerular Filtration Rate 114 mL/min (>60); Est Glom Filt Rate - Afr Amer 138 mL/min (>60); Globulin 3.5 g/dL (2.2-4.2); Glucose 98 mg/dL (74-106); Potassium 4.3 mmol/L (3.5-5.1); Protein, Total 7.3 g/dL (6.4-8.2); Sodium Level 138 mmol/L (136-145)
== END ==
PROVIDERS: PCP Family Medicine; Referring Provider Internal Medicine Rheumatology; Visit Provider Internal Medicine Rheumatology
DX: M31.30 Wegener's granulomatosis without renal involvement (principal); Z79.899 Other long term (current) drug therapy; H20.021 Recurrent acute iridocyclitis, right eye; H15.011 Anterior scleritis, right eye; M21.40 Flat foot [pes planus] (acquired), unspecified foot
CPT/HCPCS: 36415; 80053; 81002; 82570; 84156; 85025; 85652; 86140

== ENCOUNTER → 2020-08-24 07:03 | Outpatient (CLI) | payer BC, SELFPAY ==
[2018-07-14 09:37] VITALS: BMI 34.4
[2020-08-24 10:09] LABS: Absolute Lymphocyte Count 1.63 X10^3/uL (0.83-4.51); Absolute Neutrophil Count 4.3 X10^3/uL (2.0-7.7); Basophil# 0.05 X10^3/uL; Basophil% 0.7 % (0-1); Eosinophil# 0.15 X10^3/uL; Eosinophils% 2.2 % (0-5); Hematocrit 43.3 % (40-54); Hemoglobin 13.9 g/dL (13.0-16.5); Lymphocyte # 1.63 X10^3/ul (4.0); Mean Corp Hgb Conc 32.1 g/dL (32-36); Mean Corpuscular Hgb 30.3 pg (27.0-32.0); Mean Corpuscular Volume 94.3 fL (80-94); Monocyte# 0.62 X10^3/uL; Monocyte% 9.1 % (0-10); NRBC Flagged by Analyzer 0 % (0-5); Neutrophil # 4.31 X10^3/uL (2.7-7.7); Neutrophil % 63.7 % (47-70); Platelet Count 320 K/mm3 (150-450); RBC Distribution Width CV 14.6 % (11.6-14.6); RBC Distribution Width SD 50.2 fl (35.1-43.9); Red Blood Count 4.59 M/mm3 (4.6-6.2); White Blood Count 6.8 K/mm3 (4.4-11.0)
[2020-08-24 10:14] LABS: Color, Urine Yellow (Yellow); Glucose, Dipstick Normal (Normal); Ketone-Dipstick Negative (Negative); Leukocyte Esterase-Dipstick Negative /ul (Negative); Nitrite-Dipstick Negative (Negative); Occult Blood-Urine Negative /ul (Negative); Protein-Dipstick Negative (Negative); Urine Bilirubin Dipstick Negative (Negative); Urine Clarity Clear (Clear); Urine Urobilinogen Normal (Normal)
[2020-08-24 10:23] LABS: Protein, Urine (Random) < 6.0 mg/dL (<11.9)
[2020-08-24 10:40] LABS: ALB/GLOB Ratio 1.1 RATIO (0.9-2.4); AST(SGOT) 25 U/L (15-37); Alanine Aminotransfer ALT/SGPT 42 U/L (16-61); Albumin, Serum 3.9 g/dL (3.2-5.0); Alkaline Phosphatase 106 U/L (45-117); Anion Gap 6 (5-15); BUN 13 mg/dL (7-18); BUN/Creat Ratio 15.3 RATIO (10-20); CRP < 2.90 mg/L (0.0-3.0); Chloride 104 mmol/L (98-107); Creatinine, Serum 0.85 mg/dL (0.70-1.30); EST Glomerular Filtration Rate 98 mL/min (>60); Est Glom Filt Rate - Afr Amer 119 mL/min (>60); Globulin 3.5 g/dL (2.2-4.2); Glucose 94 mg/dL (74-106); Potassium 4.2 mmol/L (3.5-5.1); Protein, Total 7.4 g/dL (6.4-8.2); Sodium Level 136 mmol/L (136-145)
[2020-08-24 10:41] LABS: Erythrocyte Sedimentation Rate 12 mm/hr (0-20)
== END ==
PROVIDERS: PCP Family Medicine; Referring Provider Internal Medicine Rheumatology; Visit Provider Internal Medicine Rheumatology
DX: M31.30 Wegener's granulomatosis without renal involvement (principal); Z79.899 Other long term (current) drug therapy; H20.021 Recurrent acute iridocyclitis, right eye; H15.011 Anterior scleritis, right eye; M21.40 Flat foot [pes planus] (acquired), unspecified foot
CPT/HCPCS: 36415; 80053; 81002; 82570; 84156; 85025; 85652; 86140

== ENCOUNTER → 2020-12-05 07:15 | Outpatient (CLI) | payer BC, SELFPAY ==
[2018-07-14 09:37] VITALS: BMI 34.4
[2020-12-05 10:00] LABS: Absolute Lymphocyte Count 1.69 X10^3/uL (0.83-4.51); Absolute Neutrophil Count 3.4 X10^3/uL (2.0-7.7); Basophil# 0.05 X10^3/uL; Basophil% 0.9 % (0-1); Eosinophil# 0.13 X10^3/uL; Eosinophils% 2.3 % (0-5); Hematocrit 41.8 % (40-54); Hemoglobin 13.8 g/dL (13.0-16.5); Lymphocyte # 1.69 X10^3/ul (0.83-4.51); Mean Corpuscular Volume 93.9 fL (80-94); Mean Platelet Vol. 10.1 fl (6.2-12.0); Monocyte# 0.41 X10^3/uL; Monocyte% 7.3 % (0-10); NRBC Flagged by Analyzer 0 % (0-5); Neutrophil # 3.35 X10^3/uL (2.7-7.7); Neutrophil % 59.3 % (47-70); Platelet Count 303 K/mm3 (150-450); RBC Distribution Width CV 14.3 % (11.6-14.6); RBC Distribution Width SD 49.5 fl (35.1-43.9); Red Blood Count 4.45 M/mm3 (4.6-6.2); White Blood Count 5.6 K/mm3 (4.4-11.0)
[2020-12-05 10:31] LABS: ALB/GLOB Ratio 1.1 RATIO (0.9-2.4); AST(SGOT) 21 U/L (15-37); Alanine Aminotransfer ALT/SGPT 37 U/L (16-61); Albumin, Serum 3.8 g/dL (3.2-5.0); Alkaline Phosphatase 105 U/L (45-117); Anion Gap 6 (5-15); BUN 19 mg/dL (7-18); BUN/Creat Ratio 21.9 RATIO (10-20); Calcium,Total 9.1 mg/dL (8.5-10.1); Chloride 106 mmol/L (98-107); Creatinine, Serum 0.87 mg/dL (0.70-1.30); EST Glomerular Filtration Rate 95 mL/min (>60); Est Glom Filt Rate - Afr Amer 115 mL/min (>60); Globulin 3.5 g/dL (2.2-4.2); Glucose 114 mg/dL (74-106); Protein, Total 7.3 g/dL (6.4-8.2); Sodium Level 136 mmol/L (136-145)
== END ==
PROVIDERS: PCP Family Medicine; Referring Provider Internal Medicine Rheumatology; Visit Provider Internal Medicine Rheumatology
DX: M31.30 Wegener's granulomatosis without renal involvement (principal); Z79.899 Other long term (current) drug therapy; H20.021 Recurrent acute iridocyclitis, right eye; H15.011 Anterior scleritis, right eye; M21.40 Flat foot [pes planus] (acquired), unspecified foot
CPT/HCPCS: 36415; 80053; 85025

== ENCOUNTER → 2021-02-28 07:08 | Outpatient (CLI) | payer BC, SELFPAY ==
[2018-07-14 09:37] VITALS: BMI 34.4
[2021-02-28 10:02] LABS: Absolute Lymphocyte Count 1.78 X10^3/uL (0.83-4.51); Absolute Neutrophil Count 4.2 X10^3/uL (2.0-7.7); Basophil# 0.03 X10^3/uL; Basophil% 0.4 % (0-1); Eosinophil# 0.17 X10^3/uL; Eosinophils% 2.5 % (0-5); Hematocrit 42.7 % (40-54); Hemoglobin 13.9 g/dL (13.0-16.5); Lymphocyte # 1.78 X10^3/ul (0.83-4.51); Lymphocyte % 26.5 % (19-41); Mean Corp Hgb Conc 32.6 g/dL (32-36); Mean Corpuscular Volume 95.1 fL (80-94); Mean Platelet Vol. 9.8 fl (6.2-12.0); Monocyte# 0.49 X10^3/uL; Monocyte% 7.3 % (0-10); NRBC Flagged by Analyzer 0 % (0-5); Neutrophil # 4.22 X10^3/uL (2.7-7.7); Platelet Count 339 K/mm3 (150-450); RBC Distribution Width CV 13.9 % (11.6-14.6); RBC Distribution Width SD 48.2 fl (35.1-43.9); Red Blood Count 4.49 M/mm3 (4.6-6.2); White Blood Count 6.7 K/mm3 (4.4-11.0)
[2021-02-28 10:42] LABS: ALB/GLOB Ratio 1.1 RATIO (0.9-2.4); AST(SGOT) 28 U/L (15-37); Alanine Aminotransfer ALT/SGPT 58 U/L (16-61); Albumin, Serum 3.9 g/dL (3.2-5.0); Alkaline Phosphatase 102 U/L (45-117); Anion Gap 7 (5-15); BUN 18 mg/dL (7-18); BUN/Creat Ratio 20.5 RATIO (10-20); Calcium,Total 9.2 mg/dL (8.5-10.1); Chloride 104 mmol/L (98-107); Creatinine, Serum 0.88 mg/dL (0.70-1.30); EST Glomerular Filtration Rate 94 mL/min (>60); Est Glom Filt Rate - Afr Amer 114 mL/min (>60); Globulin 3.5 g/dL (2.2-4.2); Glucose 99 mg/dL (74-106); Potassium 4.2 mmol/L (3.5-5.1); Protein, Total 7.4 g/dL (6.4-8.2); Sodium Level 138 mmol/L (136-145)
== END ==
PROVIDERS: PCP Family Medicine; Referring Provider Internal Medicine Rheumatology; Visit Provider Internal Medicine Rheumatology
DX: M31.30 Wegener's granulomatosis without renal involvement (principal); Z79.899 Other long term (current) drug therapy; H20.021 Recurrent acute iridocyclitis, right eye; H15.011 Anterior scleritis, right eye; M21.40 Flat foot [pes planus] (acquired), unspecified foot
CPT/HCPCS: 36415; 80053; 85025

== ENCOUNTER → 2021-05-11 07:10 | Outpatient (CLI) | payer BC, SELFPAY ==
[2021-05-11 10:39] LABS: Absolute Lymphocyte Count 1.56 X10^3/uL (0.83-4.51); Absolute Neutrophil Count 3.8 X10^3/uL (2.0-7.7); Basophil# 0.05 X10^3/uL; Basophil% 0.8 % (0-1); Eosinophil# 0.15 X10^3/uL; Eosinophils% 2.4 % (0-5); Hemoglobin 13.5 g/dL (13.0-16.5); Lymphocyte # 1.56 X10^3/ul (0.83-4.51); Lymphocyte % 25.1 % (19-41); Mean Corp Hgb Conc 33.8 g/dL (32-36); Mean Corpuscular Hgb 32.1 pg (27.0-32.0); Mean Corpuscular Volume 95.2 fL (80-94); Mean Platelet Vol. 9.9 fl (6.2-12.0); Monocyte% 9.7 % (0-10); NRBC Flagged by Analyzer 0 % (0-5); Neutrophil # 3.83 X10^3/uL (2.7-7.7); Neutrophil % 61.7 % (47-70); Platelet Count 297 K/mm3 (150-450); RBC Distribution Width CV 14.9 % (11.6-14.6); RBC Distribution Width SD 51.8 fl (35.1-43.9); White Blood Count 6.2 K/mm3 (4.4-11.0)
[2021-05-11 11:08] LABS: AST(SGOT) 20 U/L (15-37); Alanine Aminotransfer ALT/SGPT 36 U/L (16-61); Albumin, Serum 3.6 g/dL (3.2-5.0); Alkaline Phosphatase 100 U/L (45-117); Anion Gap 7 (5-15); BUN 18 mg/dL (7-18); BUN/Creat Ratio 21.5 RATIO (10-20); Calcium,Total 9.2 mg/dL (8.5-10.1); Chloride 104 mmol/L (98-107); Creatinine, Serum 0.84 mg/dL (0.70-1.30); EST Glomerular Filtration Rate 100 mL/min (>60); Est Glom Filt Rate - Afr Amer 121 mL/min (>60); Globulin 3.6 g/dL (2.2-4.2); Glucose 101 mg/dL (74-106); Potassium 4.1 mmol/L (3.5-5.1); Protein, Total 7.2 g/dL (6.4-8.2); Sodium Level 138 mmol/L (136-145)
== END ==
PROVIDERS: PCP Family Medicine; Referring Provider Internal Medicine Rheumatology; Visit Provider Internal Medicine Rheumatology
DX: M31.30 Wegener's granulomatosis without renal involvement (principal); Z79.899 Other long term (current) drug therapy; H20.021 Recurrent acute iridocyclitis, right eye; H15.011 Anterior scleritis, right eye; M21.40 Flat foot [pes planus] (acquired), unspecified foot
CPT/HCPCS: 36415; 80053; 85025

== ENCOUNTER 2021-05-30 07:50 | Emergency (ER) | payer BC, SELFPAY ==
[2021-05-30 07:52] VITALS: BP 185/113; PULSE 95; RESP 22; TEMP 36.6; O2SAT 100; BMI 35.2
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
[2021-05-30] MEDS: 0.9% Normal Saline 1,000 ML 150 ML IV (08:17)
[2021-05-30 08:32] LABS: Absolute Lymphocyte Count 1.93 X10^3/uL (0.83-4.51); Absolute Neutrophil Count 4.8 X10^3/uL (2.0-7.7); Basophil# 0.05 X10^3/uL; Basophil% 0.7 % (0-1); Eosinophil# 0.11 X10^3/uL; Eosinophils% 1.5 % (0-5); Hematocrit 43.4 % (40-54); Hemoglobin 14.6 g/dL (13.0-16.5); Lymphocyte # 1.93 X10^3/ul (0.83-4.51); Lymphocyte % 25.6 % (19-41); Mean Corp Hgb Conc 33.6 g/dL (32-36); Mean Corpuscular Hgb 31.6 pg (27.0-32.0); Mean Corpuscular Volume 93.9 fL (80-94); Mean Platelet Vol. 9.6 fl (6.2-12.0); Monocyte# 0.54 X10^3/uL; Monocyte% 7.2 % (0-10); NRBC Flagged by Analyzer 0 % (0-5); Neutrophil # 4.76 X10^3/uL (2.7-7.7); Neutrophil % 62.9 % (47-70); Platelet Count 316 K/mm3 (150-450); RBC Distribution Width CV 14.6 % (11.6-14.6); RBC Distribution Width SD 50.8 fl (35.1-43.9); Red Blood Count 4.62 M/mm3 (4.6-6.2); White Blood Count 7.6 K/mm3 (4.4-11.0)
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
[2021-05-30 08:52] LABS: AST(SGOT) 37 U/L (15-37); Alanine Aminotransfer ALT/SGPT 56 U/L (16-61); Albumin, Serum 3.7 g/dL (3.2-5.0); Alkaline Phosphatase 110 U/L (45-117); Anion Gap 6 (5-15); BUN 18 mg/dL (7-18); Calcium,Total 8.9 mg/dL (8.5-10.1); Chloride 108 mmol/L (98-107); Creatinine, Serum 0.95 mg/dL (0.70-1.30); EST Glomerular Filtration Rate 86 mL/min (>60); Est Glom Filt Rate - Afr Amer 104 mL/min (>60); Estimated Creatinine Clearance 77.31 ml/min; Globulin 3.8 g/dL (2.2-4.2); Glucose 128 mg/dL (74-106); Potassium 3.9 mmol/L (3.5-5.1); Protein, Total 7.5 g/dL (6.4-8.2); Sodium Level 138 mmol/L (136-145); Troponin-I HS 9 pg/mL (3.0-78.0)
[2021-05-30] MEDS: Diphth,Pertuss(Acell),Tet Vac 0.5 ML Vial IM (09:35)
[2021-05-30 10:09] VITALS: BP 124/77; PULSE 62; RESP 17; O2SAT 96
== END 2021-05-30 10:10 | disposition home or self-care (01) ==
PROVIDERS: Emergency Provider Emergency Medicine; PCP Family Medicine
DX: S01.81XA Laceration without foreign body of other part of head, initial encounter (principal); S20.219A Contusion of unspecified front wall of thorax, initial encounter; V89.2XXA Person injured in unspecified motor-vehicle accident, traffic, initial encounter; Y92.410 Unspecified street and highway as the place of occurrence of the external cause; K76.0 Fatty (change of) liver, not elsewhere classified; M47.812 Spondylosis without myelopathy or radiculopathy, cervical region; Z86.73 Personal history of transient ischemic attack (TIA), and cerebral infarction without residual deficits; Q89.8 Other specified congenital malformations; Z23 Encounter for immunization
CPT/HCPCS: 70450; 71260; 72040; 74177; 80053; 84484; 85025; 90715; 93005; 99285; J7030

== ENCOUNTER 2021-08-16 07:07 | Outpatient (CLI) | payer BC, SELFPAY ==
[2021-08-16 10:21] LABS: Absolute Lymphocyte Count 1.08 X10^3/uL (0.83-4.51); Absolute Neutrophil Count 3.1 X10^3/uL (2.0-7.7); Basophil# 0.02 X10^3/uL; Basophil% 0.4 % (0-1); Eosinophil# 0.02 X10^3/uL; Eosinophils% 0.4 % (0-5); Hematocrit 42.1 % (40-54); Hemoglobin 13.9 g/dL (13.0-16.5); Lymphocyte # 1.08 X10^3/ul (0.83-4.51); Lymphocyte % 22.8 % (19-41); Mean Corpuscular Hgb 30.8 pg (27.0-32.0); Mean Corpuscular Volume 93.3 fL (80-94); Monocyte% 10.6 % (0-10); NRBC Flagged by Analyzer 0 % (0-5); Neutrophil # 3.09 X10^3/uL (2.7-7.7); Neutrophil % 65.4 % (47-70); Platelet Count 243 K/mm3 (150-450); RBC Distribution Width CV 14.9 % (11.6-14.6); RBC Distribution Width SD 50.9 fl (35.1-43.9); Red Blood Count 4.51 M/mm3 (4.6-6.2); White Blood Count 4.7 K/mm3 (4.4-11.0)
[2021-08-16 10:48] LABS: AST(SGOT) 29 U/L (15-37); Alanine Aminotransfer ALT/SGPT 42 U/L (16-61); Albumin, Serum 3.8 g/dL (3.2-5.0); Alkaline Phosphatase 133 U/L (45-117); Anion Gap 6 (5-15); BUN 14 mg/dL (7-18); BUN/Creat Ratio 16.6 RATIO (10-20); Calcium,Total 9.1 mg/dL (8.5-10.1); Chloride 104 mmol/L (98-107); Creatinine, Serum 0.84 mg/dL (0.70-1.30); EST Glomerular Filtration Rate 99 mL/min (>60); Est Glom Filt Rate - Afr Amer 119 mL/min (>60); Globulin 3.9 g/dL (2.2-4.2); Glucose 104 mg/dL (74-106); Potassium 3.8 mmol/L (3.5-5.1); Protein, Total 7.7 g/dL (6.4-8.2); Sodium Level 137 mmol/L (136-145)
== END 2021-08-16 23:59 | disposition short-term general hospital (02) ==
LOC: MTLAB 07:08
PROVIDERS: PCP Family Medicine; Referring Provider Internal Medicine Rheumatology; Visit Provider Internal Medicine Rheumatology
DX: M31.30 Wegener's granulomatosis without renal involvement (principal); Z79.899 Other long term (current) drug therapy; H20.021 Recurrent acute iridocyclitis, right eye; H15.011 Anterior scleritis, right eye; M21.40 Flat foot [pes planus] (acquired), unspecified foot
CPT/HCPCS: 36415; 80053; 85025

== ENCOUNTER → 2021-11-20 | Outpatient (CLI) | payer BC, SELFPAY ==
[2021-11-20 10:12] LABS: Absolute Lymphocyte Count 1.59 X10^3/uL (0.83-4.51); Absolute Neutrophil Count 3.6 X10^3/uL (2.0-7.7); Basophil# 0.06 X10^3/uL; Eosinophil# 0.16 X10^3/uL; Eosinophils% 2.7 % (0-5); Hemoglobin 14.1 g/dL (13.0-16.5); Lymphocyte # 1.59 X10^3/ul (0.83-4.51); Lymphocyte % 26.5 % (19-41); Mean Corp Hgb Conc 33.6 g/dL (32-36); Mean Corpuscular Hgb 31.3 pg (27.0-32.0); Mean Corpuscular Volume 93.3 fL (80-94); Mean Platelet Vol. 10.1 fl (6.2-12.0); Monocyte# 0.57 X10^3/uL; Monocyte% 9.5 % (0-10); NRBC Flagged by Analyzer 0 % (0-5); Neutrophil # 3.61 X10^3/uL (2.7-7.7); Platelet Count 270 K/mm3 (150-450); RBC Distribution Width CV 15.6 % (11.6-14.6)
[2021-11-20 10:29] LABS: ALB/GLOB Ratio 1.1 RATIO (0.9-2.4); AST(SGOT) 35 U/L (15-37); Alanine Aminotransfer ALT/SGPT 47 U/L (16-61); Albumin, Serum 3.8 g/dL (3.2-5.0); Alkaline Phosphatase 104 U/L (45-117); Anion Gap 6 (5-15); BUN 20 mg/dL (7-18); BUN/Creat Ratio 23.1 RATIO (10-20); Calcium,Total 9.5 mg/dL (8.5-10.1); Chloride 105 mmol/L (98-107); Creatinine, Serum 0.86 mg/dL (0.70-1.30); EST Glomerular Filtration Rate 96 mL/min (>60); Est Glom Filt Rate - Afr Amer 116 mL/min (>60); Globulin 3.6 g/dL (2.2-4.2); Glucose 104 mg/dL (74-106); Protein, Total 7.4 g/dL (6.4-8.2); Sodium Level 137 mmol/L (136-145)
== END | disposition home or self-care (01) ==
LOC: MTLAB 07:11
PROVIDERS: PCP Family Medicine; Referring Provider Internal Medicine Rheumatology; Visit Provider Internal Medicine Rheumatology
DX: M31.30 Wegener's granulomatosis without renal involvement (principal); H20.021 Recurrent acute iridocyclitis, right eye; H15.011 Anterior scleritis, right eye; M21.40 Flat foot [pes planus] (acquired), unspecified foot; Z79.899 Other long term (current) drug therapy
CPT/HCPCS: 36415; 80053; 85025

== ENCOUNTER → 2022-02-23 | Outpatient (CLI) | payer BC, SELFPAY ==
[2022-02-23 10:07] LABS: Absolute Neutrophil Count 3.6 X10^3/uL (2.0-7.7); Basophil# 0.04 X10^3/uL; Basophil% 0.7 % (0-1); Eosinophil# 0.14 X10^3/uL; Eosinophils% 2.3 % (0-5); Hematocrit 41.7 % (40-54); Lymphocyte % 26.6 % (19-41); Mean Corp Hgb Conc 33.6 g/dL (32-36); Mean Corpuscular Hgb 31.6 pg (27.0-32.0); Mean Corpuscular Volume 94.1 fL (80-94); Mean Platelet Vol. 9.7 fl (6.2-12.0); Monocyte# 0.59 X10^3/uL; Monocyte% 9.8 % (0-10); NRBC Flagged by Analyzer 0 % (0-5); Neutrophil # 3.63 X10^3/uL (2.7-7.7); Neutrophil % 60.4 % (47-70); Platelet Count 299 K/mm3 (150-450); Red Blood Count 4.43 M/mm3 (4.6-6.2)
[2022-02-23 10:45] LABS: ALB/GLOB Ratio 1.1 RATIO (0.9-2.4); AST(SGOT) 27 U/L (15-37); Alanine Aminotransfer ALT/SGPT 47 U/L (16-61); Albumin, Serum 3.8 g/dL (3.2-5.0); Alkaline Phosphatase 103 U/L (45-117); Anion Gap 7 (5-15); BUN 12 mg/dL (7-18); BUN/Creat Ratio 13.6 RATIO (10-20); Calcium,Total 9.2 mg/dL (8.5-10.1); Chloride 106 mmol/L (98-107); Creatinine, Serum 0.88 mg/dL (0.70-1.30); EST Glomerular Filtration Rate 94 mL/min (>60); Est Glom Filt Rate - Afr Amer 113 mL/min (>60); Globulin 3.5 g/dL (2.2-4.2); Glucose 102 mg/dL (74-106); Protein, Total 7.3 g/dL (6.4-8.2); Sodium Level 136 mmol/L (136-145)
== END | disposition home or self-care (01) ==
LOC: MTLAB 07:07
PROVIDERS: PCP Family Medicine; Referring Provider Internal Medicine Rheumatology; Visit Provider Internal Medicine Rheumatology
DX: M31.30 Wegener's granulomatosis without renal involvement (principal); H20.021 Recurrent acute iridocyclitis, right eye; H15.011 Anterior scleritis, right eye; M21.40 Flat foot [pes planus] (acquired), unspecified foot; Z79.899 Other long term (current) drug therapy
CPT/HCPCS: 36415; 80053; 85025

== ENCOUNTER → 2022-05-25 | Outpatient (CLI) | payer BC, SELFPAY ==
[2022-05-25 15:21] LABS: Absolute Lymphocyte Count 1.61 X10^3/uL (0.83-4.51); Absolute Neutrophil Count 4.2 X10^3/uL (2.0-7.7); Basophil# 0.05 X10^3/uL; Basophil% 0.8 % (0-1); Eosinophil# 0.08 X10^3/uL; Eosinophils% 1.2 % (0-5); Hematocrit 40.6 % (40-54); Lymphocyte # 1.61 X10^3/ul (0.83-4.51); Lymphocyte % 24.8 % (19-41); Mean Corp Hgb Conc 34.5 g/dL (32-36); Mean Corpuscular Hgb 32.1 pg (27.0-32.0); Mean Corpuscular Volume 93.1 fL (80-94); Mean Platelet Vol. 9.9 fl (6.2-12.0); Monocyte# 0.52 X10^3/uL; NRBC Flagged by Analyzer 0 % (0-5); Neutrophil # 4.22 X10^3/uL (2.7-7.7); Neutrophil % 64.9 % (47-70); Platelet Count 305 K/mm3 (150-450); RBC Distribution Width CV 14.4 % (11.6-14.6); RBC Distribution Width SD 49.9 fl (35.1-43.9); Red Blood Count 4.36 M/mm3 (4.6-6.2); White Blood Count 6.5 K/mm3 (4.4-11.0)
[2022-05-25 15:30] LABS: ALB/GLOB Ratio 1.1 RATIO (0.9-2.4); AST(SGOT) 29 U/L (15-37); Alanine Aminotransfer ALT/SGPT 54 U/L (16-61); Albumin, Serum 3.9 g/dL (3.2-5.0); Alkaline Phosphatase 115 U/L (45-117); Anion Gap 9 (5-15); BUN 14 mg/dL (7-18); BUN/Creat Ratio 15.2 RATIO (10-20); Calcium,Total 9.4 mg/dL (8.5-10.1); Chloride 105 mmol/L (98-107); Creatinine, Serum 0.92 mg/dL (0.70-1.30); EST Glomerular Filtration Rate 89 mL/min (>60); Est Glom Filt Rate - Afr Amer 107 mL/min (>60); Globulin 3.5 g/dL (2.2-4.2); Glucose 91 mg/dL (74-106); Protein, Total 7.4 g/dL (6.4-8.2); Sodium Level 137 mmol/L (136-145)
== END | disposition home or self-care (01) ==
LOC: MTLAB 11:41
PROVIDERS: PCP Family Medicine; Referring Provider Internal Medicine Rheumatology; Visit Provider Internal Medicine Rheumatology
DX: M31.30 Wegener's granulomatosis without renal involvement (principal); Z79.899 Other long term (current) drug therapy; H20.021 Recurrent acute iridocyclitis, right eye; H15.011 Anterior scleritis, right eye; M21.40 Flat foot [pes planus] (acquired), unspecified foot
CPT/HCPCS: 36415; 80053; 85025

== ENCOUNTER → 2022-08-20 | Outpatient (CLI) | payer BC, SELFPAY ==
[2022-08-20 09:50] LABS: Absolute Neutrophil Count 3.5 X10^3/uL (2.0-7.7); Basophil# 0.05 X10^3/uL; Basophil% 0.9 % (0-1); Eosinophil# 0.13 X10^3/uL; Eosinophils% 2.2 % (0-5); Hematocrit 44.1 % (40-54); Hemoglobin 14.6 g/dL (13.0-16.5); Lymphocyte % 29.3 % (19-41); Mean Corp Hgb Conc 33.1 g/dL (32-36); Mean Corpuscular Hgb 31.3 pg (27.0-32.0); Mean Corpuscular Volume 94.6 fL (80-94); Mean Platelet Vol. 9.7 fl (6.2-12.0); Monocyte# 0.44 X10^3/uL; Monocyte% 7.6 % (0-10); NRBC Flagged by Analyzer 0 % (0-5); Neutrophil # 3.46 X10^3/uL (2.7-7.7); Neutrophil % 59.7 % (47-70); Platelet Count 288 K/mm3 (150-450); RBC Distribution Width CV 14.3 % (11.6-14.6); RBC Distribution Width SD 49.7 fl (35.1-43.9); Red Blood Count 4.66 M/mm3 (4.6-6.2); White Blood Count 5.8 K/mm3 (4.4-11.0)
[2022-08-20 10:08] LABS: AST(SGOT) 31 U/L (15-37); Alanine Aminotransfer ALT/SGPT 57 U/L (16-61); Albumin, Serum 3.8 g/dL (3.2-5.0); Alkaline Phosphatase 102 U/L (45-117); Anion Gap 8 (5-15); BUN 16 mg/dL (7-18); BUN/Creat Ratio 17.9 RATIO (10-20); Calcium,Total 9.3 mg/dL (8.5-10.1); Chloride 104 mmol/L (98-107); Creatinine, Serum 0.89 mg/dL (0.70-1.30); EST Glomerular Filtration Rate 92 mL/min (>60); Est Glom Filt Rate - Afr Amer 111 mL/min (>60); Globulin 3.7 g/dL (2.2-4.2); Glucose 99 mg/dL (74-106); Protein, Total 7.5 g/dL (6.4-8.2); Sodium Level 136 mmol/L (136-145)
== END | disposition home or self-care (01) ==
LOC: MTLAB 07:10
PROVIDERS: PCP Family Medicine; Referring Provider Internal Medicine Rheumatology; Visit Provider Internal Medicine Rheumatology
DX: M31.30 Wegener's granulomatosis without renal involvement (principal); Z79.899 Other long term (current) drug therapy; H20.021 Recurrent acute iridocyclitis, right eye; H15.011 Anterior scleritis, right eye; M21.40 Flat foot [pes planus] (acquired), unspecified foot
CPT/HCPCS: 36415; 80053; 85025

== ENCOUNTER → 2022-11-16 | Outpatient (CLI) | payer BC, SELFPAY ==
[2022-11-16 10:12] LABS: Absolute Lymphocyte Count 1.52 X10^3/uL (0.83-4.51); Absolute Neutrophil Count 3.8 X10^3/uL (2.0-7.7); Basophil# 0.06 X10^3/uL; Eosinophil# 0.17 X10^3/uL; Eosinophils% 2.8 % (0-5); Hematocrit 41.9 % (40-54); Hemoglobin 13.7 g/dL (13.0-16.5); Lymphocyte # 1.52 X10^3/ul (0.83-4.51); Lymphocyte % 25.2 % (19-41); Mean Corp Hgb Conc 32.7 g/dL (32-36); Mean Corpuscular Volume 97.9 fL (80-94); Mean Platelet Vol. 10.2 fl (6.2-12.0); Monocyte# 0.51 X10^3/uL; Monocyte% 8.5 % (0-10); NRBC Flagged by Analyzer 0 % (0-5); Neutrophil # 3.75 X10^3/uL (2.7-7.7); Neutrophil % 62.3 % (47-70); Platelet Count 297 K/mm3 (150-450); RBC Distribution Width CV 14.6 % (11.6-14.6); RBC Distribution Width SD 52.1 fl (35.1-43.9); Red Blood Count 4.28 M/mm3 (4.6-6.2)
[2022-11-16 10:26] LABS: AST(SGOT) 35 U/L (15-37); Alanine Aminotransfer ALT/SGPT 58 U/L (16-61); Albumin, Serum 3.8 g/dL (3.2-5.0); Alkaline Phosphatase 112 U/L (45-117); Anion Gap 3 (5-15); BUN 18 mg/dL (7-18); BUN/Creat Ratio 21.4 RATIO (10-20); Chloride 105 mmol/L (98-107); Creatinine, Serum 0.84 mg/dL (0.70-1.30); EST Glomerular Filtration Rate 98 mL/min (>60); Est Glom Filt Rate - Afr Amer 119 mL/min (>60); Globulin 3.7 g/dL (2.2-4.2); Glucose 111 mg/dL (74-106); Protein, Total 7.5 g/dL (6.4-8.2); Sodium Level 133 mmol/L (136-145)
== END | disposition home or self-care (01) ==
LOC: MTLAB 07:00
PROVIDERS: PCP Family Medicine; Referring Provider Internal Medicine Rheumatology; Visit Provider Internal Medicine Rheumatology
DX: M31.30 Wegener's granulomatosis without renal involvement (principal); Z79.899 Other long term (current) drug therapy
CPT/HCPCS: 36415; 80053; 82306; 85025

== ENCOUNTER → 2023-02-11 | Outpatient (CLI) | payer BC, SELFPAY ==
[2023-02-11 10:12] LABS: Absolute Lymphocyte Count 1.42 X10^3/uL (0.83-4.51); Absolute Neutrophil Count 3.9 X10^3/uL (2.0-7.7); Basophil# 0.05 X10^3/uL; Basophil% 0.8 % (0-1); Eosinophil# 0.11 X10^3/uL; Eosinophils% 1.8 % (0-5); Hematocrit 42.2 % (40-54); Hemoglobin 13.9 g/dL (13.0-16.5); Lymphocyte # 1.42 X10^3/ul (0.83-4.51); Lymphocyte % 23.8 % (19-41); Mean Corp Hgb Conc 32.9 g/dL (32-36); Mean Corpuscular Volume 97.2 fL (80-94); Mean Platelet Vol. 9.9 fl (6.2-12.0); Monocyte# 0.48 X10^3/uL; Monocyte% 8.1 % (0-10); NRBC Flagged by Analyzer 0 % (0-5); Neutrophil # 3.89 X10^3/uL (2.7-7.7); Neutrophil % 65.3 % (47-70); Platelet Count 288 K/mm3 (150-450); RBC Distribution Width SD 50.2 fl (35.1-43.9); Red Blood Count 4.34 M/mm3 (4.6-6.2)
[2023-02-11 10:42] LABS: Vitamin D,25 Hydroxy 81.7 ng/mL
[2023-02-11 10:49] LABS: ALB/GLOB Ratio 0.9 RATIO (0.9-2.4); AST(SGOT) 38 U/L (15-37); Alanine Aminotransfer ALT/SGPT 59 U/L (16-61); Albumin, Serum 3.6 g/dL (3.2-5.0); Alkaline Phosphatase 114 U/L (45-117); Anion Gap 5 (5-15); BUN 15 mg/dL (7-18); BUN/Creat Ratio 16.6 RATIO (10-20); Calcium,Total 9.2 mg/dL (8.5-10.1); Chloride 104 mmol/L (98-107); Creatinine, Serum 0.91 mg/dL (0.70-1.30); EST Glomerular Filtration Rate 90 mL/min (>60); Est Glom Filt Rate - Afr Amer 109 mL/min (>60); Globulin 3.8 g/dL (2.2-4.2); Glucose 121 mg/dL (74-106); Potassium 4.4 mmol/L (3.5-5.1); Protein, Total 7.4 g/dL (6.4-8.2); Sodium Level 135 mmol/L (136-145)
== END | disposition home or self-care (01) ==
PROVIDERS: PCP Family Medicine; Referring Provider Internal Medicine Rheumatology; Visit Provider Internal Medicine Rheumatology
DX: M31.30 Wegener's granulomatosis without renal involvement (principal); Z79.899 Other long term (current) drug therapy
CPT/HCPCS: 36415; 80053; 82306; 85025

== ENCOUNTER → 2023-04-08 | Outpatient (CLI) | payer BC, SELFPAY ==
[2023-04-08 17:45] LABS: Absolute Lymphocyte Count 1.69 X10^3/uL (0.83-4.51); Absolute Neutrophil Count 6.8 X10^3/uL (2.0-7.7); Basophil# 0.06 X10^3/uL; Basophil% 0.7 % (0-1); Eosinophil# 0.06 X10^3/uL; Eosinophils% 0.7 % (0-5); Hematocrit 42.6 % (40-54); Lymphocyte # 1.69 X10^3/ul (0.83-4.51); Lymphocyte % 18.4 % (19-41); Mean Corp Hgb Conc 32.9 g/dL (32-36); Mean Corpuscular Hgb 31.4 pg (27.0-32.0); Mean Corpuscular Volume 95.5 fL (80-94); Mean Platelet Vol. 9.8 fl (6.2-12.0); Monocyte# 0.61 X10^3/uL; Monocyte% 6.6 % (0-10); NRBC Flagged by Analyzer 0 % (0-5); Neutrophil # 6.76 X10^3/uL (2.7-7.7); Neutrophil % 73.4 % (47-70); Platelet Count 318 K/mm3 (150-450); RBC Distribution Width CV 13.7 % (11.6-14.6); RBC Distribution Width SD 48.3 fl (35.1-43.9); Red Blood Count 4.46 M/mm3 (4.6-6.2); White Blood Count 9.2 K/mm3 (4.4-11.0)
[2023-04-08 18:49] LABS: ALB/GLOB Ratio 1.1 RATIO (0.9-2.4); AST(SGOT) 30 U/L (15-37); Alanine Aminotransfer ALT/SGPT 47 U/L (16-61); Alkaline Phosphatase 113 U/L (45-117); Anion Gap 9 (5-15); BUN 14 mg/dL (7-18); BUN/Creat Ratio 14.7 RATIO (10-20); Calcium,Total 9.8 mg/dL (8.5-10.1); Chloride 103 mmol/L (98-107); Creatinine, Serum 0.95 mg/dL (0.70-1.30); EST Glomerular Filtration Rate 85 mL/min (>60); Est Glom Filt Rate - Afr Amer 103 mL/min (>60); Globulin 3.6 g/dL (2.2-4.2); Glucose 78 mg/dL (74-106); Potassium 3.9 mmol/L (3.5-5.1); Protein, Total 7.6 g/dL (6.4-8.2); Sodium Level 135 mmol/L (136-145)
== END | disposition home or self-care (01) ==
LOC: MTLAB 14:47
PROVIDERS: PCP Family Medicine; Referring Provider Internal Medicine Rheumatology; Visit Provider Internal Medicine Rheumatology
DX: M31.30 Wegener's granulomatosis without renal involvement (principal); Z79.899 Other long term (current) drug therapy
CPT/HCPCS: 36415; 80053; 85025

== ENCOUNTER → 2023-06-19 | Outpatient (CLI) | payer BC, SELFPAY ==
[2023-06-19 10:50] LABS: Absolute Lymphocyte Count 1.39 X10^3/uL (0.83-4.51); Absolute Neutrophil Count 3.8 X10^3/uL (2.0-7.7); Basophil# 0.05 X10^3/uL; Basophil% 0.9 % (0-1); Eosinophil# 0.14 X10^3/uL; Eosinophils% 2.4 % (0-5); Hematocrit 43.2 % (40-54); Lymphocyte # 1.39 X10^3/ul (0.83-4.51); Lymphocyte % 23.6 % (19-41); Mean Corp Hgb Conc 32.4 g/dL (32-36); Mean Corpuscular Hgb 30.6 pg (27.0-32.0); Mean Corpuscular Volume 94.5 fL (80-94); Mean Platelet Vol. 10.1 fl (6.2-12.0); Monocyte# 0.45 X10^3/uL; Monocyte% 7.7 % (0-10); NRBC Flagged by Analyzer 0 % (0-5); Neutrophil # 3.84 X10^3/uL (2.7-7.7); Neutrophil % 65.2 % (47-70); Platelet Count 314 K/mm3 (150-450); RBC Distribution Width CV 14.5 % (11.6-14.6); RBC Distribution Width SD 50.3 fl (35.1-43.9); Red Blood Count 4.57 M/mm3 (4.6-6.2); White Blood Count 5.9 K/mm3 (4.4-11.0)
[2023-06-19 11:01] LABS: AST(SGOT) 25 U/L (15-37); Alanine Aminotransfer ALT/SGPT 38 U/L (16-61); Albumin, Serum 3.8 g/dL (3.2-5.0); Alkaline Phosphatase 120 U/L (45-117); Anion Gap 6 (5-15); BUN 12 mg/dL (7-18); BUN/Creat Ratio 13.2 RATIO (10-20); Chloride 106 mmol/L (98-107); Creatinine, Serum 0.91 mg/dL (0.70-1.30); EST Glomerular Filtration Rate 90 mL/min (>60); Est Glom Filt Rate - Afr Amer 108 mL/min (>60); Globulin 3.7 g/dL (2.2-4.2); Glucose 103 mg/dL (74-106); Potassium 4.2 mmol/L (3.5-5.1); Protein, Total 7.5 g/dL (6.4-8.2); Sodium Level 140 mmol/L (136-145)
== END | disposition home or self-care (01) ==
LOC: MTLAB 07:05
PROVIDERS: PCP Family Medicine; Referring Provider Internal Medicine Rheumatology; Visit Provider Internal Medicine Rheumatology
DX: M31.30 Wegener's granulomatosis without renal involvement (principal); Z79.899 Other long term (current) drug therapy; H20.021 Recurrent acute iridocyclitis, right eye; H15.011 Anterior scleritis, right eye; M21.40 Flat foot [pes planus] (acquired), unspecified foot; N20.0 Calculus of kidney
CPT/HCPCS: 36415; 80053; 85025

== ENCOUNTER → 2023-09-16 | Outpatient (CLI) | payer BC, SELFPAY ==
--- OUTSIDE RECORDS SUMMARY | 2023-09-16 07:02 | XMS RPT_ITS | CCD ---
Author Name Unknown Address [address] [place] [address] Organization [facility] Results Test Name Value Interpretation Reference Range Facil ity Summary Purpose Family History No Family History Records Found Advance Directives No Advanced Directives Records Found Additional Source Comments (unrecognized sect ion and content) No Status Records Found INFORMATION SOURCE (unrecogn ized section and content) FOR RECORDS PERTAINING TO PATIENTS WHO ARE OR HAVE BEEN ENROLLED IN A CHEMICAL DEPENDENCY/SUBSTANCEABUSE PROGRAM, SOME INFORMATION MAY BE OMITTED. This clinical summary was aggregated from multiple sources. Caution should be exercised in using it in the provision of clinical care. This summary normalizes information from multiple sources, and as a consequence, information in this document may materially change the coding, format and clinical context of patient data. In addition, data may be omitted in some cases. CLINICAL DECISIONS SHOULD BE BASED ON THE PRIMARY CLINICAL RECORDS. [employer] provides no warranty or guarantee of the accuracy or completeness of information in this document.
[2023-09-16 10:33] LABS: Absolute Lymphocyte Count 1.66 X10^3/uL (0.83-4.51); Absolute Neutrophil Count 4.2 X10^3/uL (2.0-7.7); Basophil# 0.04 X10^3/uL; Basophil% 0.6 % (0-1); Eosinophils% 1.5 % (0-5); Hematocrit 42.3 % (40-54); Hemoglobin 13.7 g/dL (13.0-16.5); Lymphocyte # 1.66 X10^3/ul (0.83-4.51); Lymphocyte % 25.6 % (19-41); Mean Corp Hgb Conc 32.4 g/dL (32-36); Mean Corpuscular Hgb 31.4 pg (27.0-32.0); Mean Corpuscular Volume 96.8 fL (80-94); Monocyte# 0.49 X10^3/uL; Monocyte% 7.6 % (0-10); NRBC Flagged by Analyzer 0 % (0-5); Neutrophil # 4.19 X10^3/uL (2.7-7.7); Neutrophil % 64.5 % (47-70); Platelet Count 324 K/mm3 (150-450); RBC Distribution Width SD 53.9 fl (35.1-43.9); Red Blood Count 4.37 M/mm3 (4.6-6.2); White Blood Count 6.5 K/mm3 (4.4-11.0)
[2023-09-16 10:56] LABS: ALB/GLOB Ratio 1.1 RATIO (0.9-2.4); AST(SGOT) 35 U/L (15-37); Alanine Aminotransfer ALT/SGPT 50 U/L (16-61); Albumin, Serum 3.9 g/dL (3.2-5.0); Alkaline Phosphatase 120 U/L (45-117); Anion Gap 3 (5-15); BUN 14 mg/dL (7-18); BUN/Creat Ratio 16.7 RATIO (10-20); Calcium,Total 9.1 mg/dL (8.5-10.1); Chloride 109 mmol/L (98-107); Creatinine, Serum 0.84 mg/dL (0.70-1.30); EST Glomerular Filtration Rate 98 mL/min (>60); Est Glom Filt Rate - Afr Amer 119 mL/min (>60); Globulin 3.4 g/dL (2.2-4.2); Glucose 100 mg/dL (74-106); Potassium 4.4 mmol/L (3.5-5.1); Protein, Total 7.3 g/dL (6.4-8.2); Sodium Level 140 mmol/L (136-145)
== END | disposition home or self-care (01) ==
PROVIDERS: PCP Family Medicine; Referring Provider Internal Medicine Rheumatology; Visit Provider Internal Medicine Rheumatology
DX: M31.30 Wegener's granulomatosis without renal involvement (principal); Z79.899 Other long term (current) drug therapy
CPT/HCPCS: 36415; 80053; 85025

== ENCOUNTER → 2023-12-24 | Outpatient (CLI) | payer BC, SELFPAY ==
[2023-12-24 10:17] LABS: Absolute Lymphocyte Count 1.48 X10^3/uL (0.83-4.51); Absolute Neutrophil Count 3.3 X10^3/uL (2.0-7.7); Basophil# 0.05 X10^3/uL; Basophil% 0.9 % (0-1); Eosinophil# 0.15 X10^3/uL; Eosinophils% 2.8 % (0-5); Hematocrit 38.8 % (40-54); Hemoglobin 12.7 g/dL (13.0-16.5); Lymphocyte # 1.48 X10^3/ul (0.83-4.51); Lymphocyte % 27.2 % (19-41); Mean Corp Hgb Conc 32.7 g/dL (32-36); Mean Corpuscular Hgb 30.9 pg (27.0-32.0); Mean Corpuscular Volume 94.4 fL (80-94); Mean Platelet Vol. 9.2 fl (6.2-12.0); Monocyte# 0.47 X10^3/uL; Monocyte% 8.6 % (0-10); NRBC Flagged by Analyzer 0 % (0-5); Neutrophil # 3.28 X10^3/uL (2.7-7.7); Neutrophil % 60.3 % (47-70); Platelet Count 320 K/mm3 (150-450); RBC Distribution Width CV 15.7 % (11.6-14.6); RBC Distribution Width SD 53.5 fl (35.1-43.9); Red Blood Count 4.11 M/mm3 (4.6-6.2); White Blood Count 5.4 K/mm3 (4.4-11.0)
[2023-12-24 11:07] LABS: ALB/GLOB Ratio 0.9 RATIO (0.9-2.4); AST(SGOT) 27 U/L (15-37); Alanine Aminotransfer ALT/SGPT 42 U/L (16-61); Albumin, Serum 3.6 g/dL (3.2-5.0); Alkaline Phosphatase 97 U/L (45-117); Anion Gap 9 (5-15); BUN 19 mg/dL (7-18); Calcium,Total 9.9 mg/dL (8.5-10.1); Chloride 106 mmol/L (98-107); Creatinine, Serum 1.12 mg/dL (0.70-1.30); EST Glomerular Filtration Rate 71 mL/min (>60); Est Glom Filt Rate - Afr Amer 85 mL/min (>60); Globulin 3.8 g/dL (2.2-4.2); Glucose 92 mg/dL (74-106); Potassium 4.2 mmol/L (3.5-5.1); Protein, Total 7.4 g/dL (6.4-8.2); Sodium Level 139 mmol/L (136-145)
== END | disposition home or self-care (01) ==
LOC: MTLAB 07:07
PROVIDERS: PCP Family Medicine; Referring Provider Internal Medicine Rheumatology; Visit Provider Internal Medicine Rheumatology
DX: M31.30 Wegener's granulomatosis without renal involvement (principal); Z79.899 Other long term (current) drug therapy
CPT/HCPCS: 36415; 80053; 85025

== ENCOUNTER → 2024-03-31 | Outpatient (CLI) | payer BC, SELFPAY ==
[2024-03-31 09:55] LABS: Absolute Lymphocyte Count 1.59 X10^3/uL (0.83-4.51); Absolute Neutrophil Count 3.8 X10^3/uL (2.0-7.7); Basophil# 0.05 X10^3/uL; Basophil% 0.8 % (0-1); Eosinophil# 0.12 X10^3/uL; Hematocrit 39.8 % (40-54); Hemoglobin 13.1 g/dL (13.0-16.5); Lymphocyte # 1.59 X10^3/ul (0.83-4.51); Lymphocyte % 26.2 % (19-41); Mean Corp Hgb Conc 32.9 g/dL (32-36); Mean Corpuscular Hgb 31.4 pg (27.0-32.0); Mean Corpuscular Volume 95.4 fL (80-94); Mean Platelet Vol. 9.3 fl (6.2-12.0); Monocyte# 0.48 X10^3/uL; Monocyte% 7.9 % (0-10); NRBC Flagged by Analyzer 0 % (0-5); Neutrophil # 3.82 X10^3/uL (2.7-7.7); Neutrophil % 62.9 % (47-70); Platelet Count 290 K/mm3 (150-450); RBC Distribution Width CV 14.4 % (11.6-14.6); RBC Distribution Width SD 50.1 fl (35.1-43.9); Red Blood Count 4.17 M/mm3 (4.6-6.2); White Blood Count 6.1 K/mm3 (4.4-11.0)
[2024-03-31 10:56] LABS: ALB/GLOB Ratio 1.1 RATIO (0.9-2.4); AST(SGOT) 31 U/L (15-37); Alanine Aminotransfer ALT/SGPT 35 U/L (16-61); Albumin, Serum 3.7 g/dL (3.2-5.0); Alkaline Phosphatase 96 U/L (45-117); Anion Gap 7 (5-15); BUN 17 mg/dL (7-18); Calcium,Total 9.4 mg/dL (8.5-10.1); Chloride 106 mmol/L (98-107); Creatinine, Serum 0.85 mg/dL (0.70-1.30); EST Glomerular Filtration Rate 97 mL/min (>60); Est Glom Filt Rate - Afr Amer 117 mL/min (>60); Globulin 3.4 g/dL (2.2-4.2); Glucose 116 mg/dL (74-106); Potassium 4.1 mmol/L (3.5-5.1); Protein, Total 7.1 g/dL (6.4-8.2); Sodium Level 138 mmol/L (136-145)
== END | disposition home or self-care (01) ==
LOC: MTLAB 07:05
PROVIDERS: PCP Family Medicine; Referring Provider Internal Medicine Rheumatology; Visit Provider Internal Medicine Rheumatology
DX: M31.30 Wegener's granulomatosis without renal involvement (principal); Z79.899 Other long term (current) drug therapy
CPT/HCPCS: 36415; 80053; 85025

== ENCOUNTER → 2024-06-23 | Outpatient (CLI) | payer BC, SELFPAY ==
[2024-06-23 10:06] LABS: Absolute Lymphocyte Count 1.35 X10^3/uL (0.83-4.51); Absolute Neutrophil Count 2.9 X10^3/uL (2.0-7.7); Basophil# 0.06 X10^3/uL; Basophil% 1.3 % (0-1); Eosinophils% 2.1 % (0-5); Hematocrit 39.6 % (40-54); Hemoglobin 13.3 g/dL (13.0-16.5); Lymphocyte # 1.35 X10^3/ul (0.83-4.51); Lymphocyte % 28.2 % (19-41); Mean Corp Hgb Conc 33.6 g/dL (32-36); Mean Corpuscular Volume 95.4 fL (80-94); Mean Platelet Vol. 9.6 fl (6.2-12.0); Monocyte# 0.33 X10^3/uL; Monocyte% 6.9 % (0-10); NRBC Flagged by Analyzer 0 % (0-5); Neutrophil # 2.93 X10^3/uL (2.7-7.7); Neutrophil % 61.3 % (47-70); Platelet Count 302 K/mm3 (150-450); RBC Distribution Width CV 14.5 % (11.6-14.6); RBC Distribution Width SD 50.4 fl (35.1-43.9); Red Blood Count 4.15 M/mm3 (4.6-6.2); White Blood Count 4.8 K/mm3 (4.4-11.0)
[2024-06-23 10:26] LABS: ALB/GLOB Ratio 1.1 RATIO (0.9-2.4); AST(SGOT) 44 U/L (15-37); Alanine Aminotransfer ALT/SGPT 49 U/L (16-61); Albumin, Serum 3.8 g/dL (3.2-5.0); Alkaline Phosphatase 96 U/L (45-117); Anion Gap 5 (5-15); BUN 17 mg/dL (7-18); BUN/Creat Ratio 21.8 RATIO (10-20); Calcium,Total 9.2 mg/dL (8.5-10.1); Chloride 106 mmol/L (98-107); Creatinine, Serum 0.78 mg/dL (0.70-1.30); EST Glomerular Filtration Rate 107 mL/min (>60); Est Glom Filt Rate - Afr Amer 129 mL/min (>60); Globulin 3.5 g/dL (2.2-4.2); Glucose 96 mg/dL (74-106); Potassium 4.2 mmol/L (3.5-5.1); Protein, Total 7.3 g/dL (6.4-8.2); Sodium Level 138 mmol/L (136-145)
== END | disposition home or self-care (01) ==
LOC: MTLAB 07:06
PROVIDERS: PCP Family Medicine; Referring Provider Internal Medicine Rheumatology; Visit Provider Internal Medicine Rheumatology
DX: M31.30 Wegener's granulomatosis without renal involvement (principal); Z79.899 Other long term (current) drug therapy
CPT/HCPCS: 36415; 80053; 85025

== ENCOUNTER → 2024-08-21 | Outpatient (CLI) | payer BC, SELFPAY ==
[2024-08-21 10:40] LABS: Absolute Lymphocyte Count 1.31 X10^3/uL (0.83-4.51); Absolute Neutrophil Count 4.4 X10^3/uL (2.0-7.7); Basophil# 0.05 X10^3/uL; Basophil% 0.8 % (0-1); Eosinophil# 0.09 X10^3/uL; Eosinophils% 1.4 % (0-5); Hematocrit 41.3 % (40-54); Hemoglobin 14.2 g/dL (13.0-16.5); Lymphocyte # 1.31 X10^3/ul (0.83-4.51); Lymphocyte % 20.7 % (19-41); Mean Corp Hgb Conc 34.4 g/dL (32-36); Mean Corpuscular Hgb 31.8 pg (27.0-32.0); Mean Corpuscular Volume 92.4 fL (80-94); Mean Platelet Vol. 9.7 fl (6.2-12.0); Monocyte# 0.49 X10^3/uL; Monocyte% 7.7 % (0-10); NRBC Flagged by Analyzer 0 % (0-5); Neutrophil # 4.39 X10^3/uL (2.7-7.7); Neutrophil % 69.2 % (47-70); Platelet Count 309 K/mm3 (150-450); RBC Distribution Width CV 13.2 % (11.6-14.6); RBC Distribution Width SD 44.3 fl (35.1-43.9); Red Blood Count 4.47 M/mm3 (4.6-6.2); White Blood Count 6.3 K/mm3 (4.4-11.0)
[2024-08-21 11:42] LABS: ALB/GLOB Ratio 1.1 RATIO (0.9-2.4); AST(SGOT) 28 U/L (15-37); Alanine Aminotransfer ALT/SGPT 33 U/L (16-61); Alkaline Phosphatase 92 U/L (45-117); Anion Gap 6 (5-15); BUN 16 mg/dL (7-18); Calcium,Total 9.5 mg/dL (8.5-10.1); Chloride 106 mmol/L (98-107); Creatinine, Serum 0.89 mg/dL (0.70-1.30); EST Glomerular Filtration Rate 92 mL/min (>60); Est Glom Filt Rate - Afr Amer 111 mL/min (>60); Globulin 3.5 g/dL (2.2-4.2); Glucose 74 mg/dL (74-106); Potassium 4.2 mmol/L (3.5-5.1); Protein, Total 7.5 g/dL (6.4-8.2); Sodium Level 138 mmol/L (136-145)
== END | disposition home or self-care (01) ==
LOC: MTLAB 07:18
PROVIDERS: PCP Family Medicine; Referring Provider Internal Medicine Rheumatology; Visit Provider Internal Medicine Rheumatology
DX: M31.30 Wegener's granulomatosis without renal involvement (principal); Z79.899 Other long term (current) drug therapy
CPT/HCPCS: 36415; 80053; 85025

== ENCOUNTER → 2024-11-16 | Outpatient (CLI) | payer BC, SELFPAY ==
[2024-11-16 11:04] LABS: Absolute Lymphocyte Count 1.43 X10^3/uL (0.83-4.51); Basophil# 0.06 X10^3/uL; Eosinophil# 0.12 X10^3/uL; Eosinophils% 1.9 % (0-5); Hematocrit 41.5 % (40-54); Hemoglobin 14.3 g/dL (13.0-16.5); Lymphocyte # 1.43 X10^3/ul (0.83-4.51); Mean Corp Hgb Conc 34.5 g/dL (32-36); Mean Corpuscular Hgb 30.8 pg (27.0-32.0); Mean Corpuscular Volume 89.2 fL (80-94); Mean Platelet Vol. 9.6 fl (6.2-12.0); Monocyte# 0.56 X10^3/uL; NRBC Flagged by Analyzer 0 % (0-5); Neutrophil # 4.04 X10^3/uL (2.7-7.7); Neutrophil % 64.9 % (47-70); Platelet Count 297 K/mm3 (150-450); RBC Distribution Width CV 13.8 % (11.6-14.6); RBC Distribution Width SD 45.3 fl (35.1-43.9); Red Blood Count 4.65 M/mm3 (4.6-6.2); White Blood Count 6.2 K/mm3 (4.4-11.0)
[2024-11-16 11:45] LABS: ALB/GLOB Ratio 1.5 RATIO (0.9-2.4); AST(SGOT) 33 U/L (<=37); Alanine Aminotransfer ALT/SGPT 25 U/L (<=46); Albumin, Serum 4.5 g/dL (3.4-4.8); Alkaline Phosphatase 108 U/L (40-129); Anion Gap 14 (5-15); BUN 17 mg/dL (4-19); BUN/Creat Ratio 21.2 RATIO (10-20); Carbon Dioxide 22.2 mmol/L (21.0-32.0); Chloride 103 mmol/L (98-108); EST Glomerular Filtration Rate 99 (>60); Globulin 2.9 g/dL (2.2-4.2); Glucose 73 mg/dL (70-99); Potassium 4.1 mmol/L (3.3-5.1); Protein, Total 7.4 g/dL (5.9-8.4); Sodium Level 139 mmol/L (133-145); Total Bilirubin 0.56 mg/dL (0.00-1.30)
== END | disposition home or self-care (01) ==
LOC: MTLAB 07:02
PROVIDERS: PCP Family Medicine; Referring Provider Internal Medicine Rheumatology; Visit Provider Internal Medicine Rheumatology
DX: M31.30 Wegener's granulomatosis without renal involvement (principal); Z79.899 Other long term (current) drug therapy
CPT/HCPCS: 36415; 80053; 85025

== ENCOUNTER → 2025-05-10 | Outpatient (CLI) | payer BC, SELFPAY ==
[2025-05-10 10:51] LABS: Hematocrit 40.8 % (40-54); Hemoglobin 14.0 g/dL (13.0-16.5); Immature Granulocytes Count 0.010 X10^3/uL (0.0-0.0); Mean Corp Hgb Conc 34.3 g/dL (32-36); Mean Corpuscular Volume 89.1 fL (80-94); Mean Platelet Vol. 9.7 fl (6.2-12.0); NRBC Flagged by Analyzer 0 % (0-5); Platelet Count 302 K/mm3 (150-450); RBC Distribution Width CV 13.2 % (11.6-14.6); RBC Distribution Width SD 43.8 fl (35.1-43.9); Red Blood Count 4.58 M/mm3 (4.6-6.2); White Blood Count 8.1 K/mm3 (4.4-11.0)
[2025-05-10 12:01] LABS: AST(SGOT) 28 U/L (<=37); Alanine Aminotransfer ALT/SGPT 23 U/L (<=46); Albumin, Serum 4.3 g/dL (3.4-4.8); Alkaline Phosphatase 105 U/L (40-129); Anion Gap 15 (5-15); BUN 18 mg/dL (4-19); BUN/Creat Ratio 22.7 RATIO (10-20); CRP 4.46 mg/L (0.0-3.0); Calcium,Total 9.6 mg/dL (7.6-11.0); Carbon Dioxide 20.5 mmol/L (21.0-32.0); Chloride 100 mmol/L (98-108); Globulin 3.0 g/dL (2.2-4.2); Glucose 75 mg/dL (70-99); Potassium 4.1 mmol/L (3.3-5.1)
== END | disposition home or self-care (01) ==
LOC: MTLAB 07:10
PROVIDERS: PCP Family Medicine; Referring Provider Internal Medicine Rheumatology; Visit Provider Internal Medicine Rheumatology
DX: M31.30 Wegener's granulomatosis without renal involvement (principal); Z79.899 Other long term (current) drug therapy; H20.021 Recurrent acute iridocyclitis, right eye
CPT/HCPCS: 36415; 80053; 85025; 85652; 86140